=== PATIENT | male | born 1970 | race American Indian/Alaskan Native ===

== ENCOUNTER 2019-07-16 17:07 | Inpatient (IN) | payer OTHER ==
[2019-07-16] MEDS ORDERED: ALBUTEROL 2.5 MG/3 ML NEBU IH ONE (17:55)
[2019-07-16] MEDS: IPRATROPIUM 0.02% NEBU 2.5 ML IH ONE (18:10)
--- NOTE | 2019-07-16 18:15 | Emergency Department Report ---
HPI - General Chief Complaint: Dyspnea/Respdistress Time Seen by Provider: 07/16/19 17:54 - HPI HPI: 48-year-old male presents to the emergency department via EMS from home with complaint of a productive cough and shortness of breath. Overall the shortness of breath has been going on for the past 2 days but it became labored today. He received breathing treatments in route. He denies any chest pain except for when he is coughing. No lower extremity swelling and no recent travel or sick contacts at home. He has a past medical history of hypertension. Denies any tobacco or illicit drug use. No primary care physician. ED Past Medical Hx - Past Medical History Hx Hypertension: Yes - Surgical History Past Surgical History?: No - Social History Smoking Status: Never Smoker Substance Use Type: Alcohol - Medications Home Medications: Home Medications Medication Instructions Recorded Confirmed Last Taken Type Lisinopril/Hydrochlorothiazide 1 tab PO QDAY 07/16/19 07/16/19 Unknown History [Zestoretic 20-12.5 mg] amLODIPine [Norvasc] 10 mg PO DAILY 07/16/19 07/16/19 Unknown History ED Review of Systems ROS: Stated complaint: RESP DISTRESS Other details as noted in HPI Comment: All other systems reviewed and negative Constitutional: denies: chills, fever Eyes: denies: eye pain, vision change ENT: denies: ear pain, throat pain Respiratory: cough, shortness of breath Cardiovascular: denies: palpitations, edema Gastrointestinal: denies: abdominal pain, vomiting Genitourinary: denies: dysuria, discharge Musculoskeletal: denies: back pain, arthralgia Skin: denies: rash, lesions Neurological: denies: headache, weakness Physical Exam - Physical Exam Vital Signs: Vital Signs 07/16/19 17:25 Temperature 98.2 F Pulse Rate 126 H Respiratory 36 H Rate Blood Pressure 142/80 Physical Exam: GENERAL: The patient is well-developed well-nourished. HEENT: Normocephalic. Atraumatic. Patient has moist mucous membranes. EYES: Extraocular motions are intact. Pupils equal react to light bilaterally. NECK: Supple. Trachea is midline. CHEST/LUNGS: There is coarse breath sounds heard and rhonchi to the right side of the chest. There is tachypnea and accessory muscle use. There is respiratory distress noted. HEART/CARDIOVASCULAR: Regular. There is moderate tachycardia. There is no gallop rub or murmur. ABDOMEN: Abdomen is soft, nontender. Patient has normal bowel sounds. There is no abdominal distention. SKIN: Skin is warm and dry. NEURO: The patient is awake, alert, and oriented. The patient is cooperative. The patient has no focal neurologic deficits. MUSCULOSKELETAL: There is no tenderness or deformity. There is no evidence of acute injury. ED Course Vital Signs 07/16/19 17:25 Temperature 98.2 F Pulse Rate 126 H Respiratory 36 H Rate Blood Pressure 142/80 - Consultations Consultation #1: 07/17/19 00:49 The clinical marketing manager on-call, Dr. Valentin, was contacted regarding the patient's acute renal failure. He will see the patient as a consult. - ABG Interpretation Ph: [phone] PCO2: 35 PO2: 56 Bicarbonate: 26 Interpretation: respiratory alkalosis, other (hypoxemia) ED Medical Decision Making - Lab Data Result diagrams: 07/16/19 18:05 07/16/19 18:05 - EKG Data -: EKG Interpreted by Me EKG shows normal: sinus rhythm, axis (left axis deviation), intervals, QRS complexes, ST-T waves Rate: tachycardia (125 bpm) - EKG Data When compared to previous EKG there are: previous EKG unavailable Interpretation: other (Sinus tach, left axis deviation) - Radiology Data Radiology results: report reviewed, image reviewed interpreted by me: Chest x-ray shows a large right-sided opacity or opacities to the right lower, middle and upper lung. CT of the chest without contrast was read by radiology as an extensive right- sided pneumonia. Ventilation perfusion scan was read by radiology as intermediate probability for a pulmonary embolism. Bilateral renal ultrasound was a normal examination without any acute process found. - Medical Decision Making This patient presents to the emergency department with complaint of some shortness of breath and cough that has been going on for the past few days but worsened today. He appears in some respiratory distress with tachypnea, accessory muscle use, conversational dyspnea. Lung sounds are coarse with rhonchi on the right side. He presented on a nonrebreather. He was given nebulized treatment with albuterol and Atrovent. A chest x-ray was done that showed almost a complete right-sided white out. Patient's labs came back abnormal including a leukocytosis of 17,000, acute renal failure with a GFR of 18, hypokalemia with a potassium of 2.8, elevated BNP and troponin levels, and elevated AST level, and lactic acidosis of 6. ABG showed some mild respiratory alkalosis with hypoxemia. Blood cultures were sent and the patient was started on antibiotics. A CT scan of the chest without contrast was done that showed a large right-sided pneumonia. A ventilation perfusion scan was performed that came back intermediate for pulmonary embolism, most likely secondary to the right-sided pneumonia where they could not show perfusion ventilation. For this reason the patient will be started on heparin. I attempted to titrate the patient down to a nasal cannula but he once again began having some hypoxia. He was then placed on a Venturi mask and his oxygen went back to the high 90s. The patient will be admitted to the hospital for further evaluation and treatment and was accepted for admission by the hospitalist, Dr. Parker. - Differential Diagnosis sepsis, pneumonia, CHF, PE Critical Care Time: Yes Critical care time in (mins) excluding proc time.: 35 Critical care attestation.: If time is entered above; I have spent that time in minutes in the direct care of this critically ill patient, excluding procedure time. Critical care time was spent on this patient and doing his initial evaluation, multiple re- evaluations, ordering and interpretation of labs and imaging, discussion with the clinical marketing manager and hospitalist services. Critical Care Time: 35 minutes ED Disposition Clinical Impression: Hypokalemia, Lactic acidosis, Elevated troponin, Acute respiratory distress Sepsis Qualifiers: Sepsis type: sepsis due to unspecified organism Sepsis acute organ dysfunction status: unspecified Qualified Code(s): A41.9 - Sepsis, unspecified organism Pneumonia Qualifiers: Pneumonia type: due to unspecified organism Laterality: right Lung location: unspecified part of lung Qualified Code(s): J18.9 - Pneumonia, unspecified organism Renal failure Qualifiers: Renal failure chronicity: acute Acute renal failure type: unspecified Qualified Code(s): N17.9 - Acute kidney failure, unspecified Disposition: OP ADMIT IP TO THIS HOSP Is pt being admited?: Yes Condition: Serious Time of Disposition: 00:55
[2019-07-16 18:20] LABS: Hematocrit 39.7 % (35.5-45.6); Hemoglobin 13.2 gm/dl (11.8-15.2); Mean Corpuscular HGB Conc 33 % (32-34); Mean Corpuscular Volume 79 fl (84-94); Platelet Count 238 K/mm3 (140-440); Red Blood Count 5.03 M/mm3 (3.65-5.03); Red Cell Distribution Width 15.4 % (13.2-15.2)
[2019-07-16 18:30] LABS: INR 1.66 (0.87-1.13)
--- NOTE | 2019-07-16 18:34 | XRay Report ---
CHEST 1 VIEW INDICATION / CLINICAL INFORMATION: SOB. COMPARISON: None available. FINDINGS: SUPPORT DEVICES: None. HEART / MEDIASTINUM: No significant abnormality. LUNGS / PLEURA: Hazy opacity is seen throughout the right hemithorax, particularly laterally. The lef t lung is clear. No pneumothorax. ADDITIONAL FINDINGS: No significant additional findings. IMPRESSION: 1. Extensive opacity in the right lung. Signer Name: Franco Stephens MD Signed: 07/16/2019 6:29 PM Workstation Name: [id number]
[2019-07-16 18:56] LABS: Albumin 3.3 g/dL (3.9-5); Bilirubin,Direct 0.9 mg/dL (0-0.2)
[2019-07-16] MEDS ORDERED: POTASSIUM CHLORIDE ER 20 MEQ TAB PO ONE (18:59)
[2019-07-16 19:09] LABS: Chol/HDL Ratio 3.38 %
[2019-07-16 19:26] LABS: Hematocrit 38.9 % (35.5-45.6); Mean Corpuscular HGB Conc 34 % (32-34); Mean Corpuscular Volume 79 fl (84-94); Platelet Count 248 K/mm3 (140-440); Red Blood Count 4.92 M/mm3 (3.65-5.03); Red Cell Distribution Width 15.4 % (13.2-15.2)
[2019-07-16] MEDS ORDERED: cefTRIAXone/NS 1 GM/50 ML 1 GM/50 ML BAG IV ONE (20:01)
[2019-07-16] MEDS: POTASSIUM CHLORIDE 10 MEQ 10 MEQ/100 ML BAG IV SCH ×2 (20:02→22:33)
--- NOTE | 2019-07-16 21:10 | Cat Scan Report ---
CT chest wo con INDICATION: SOB. TECHNIQUE: All CT scans at this location are performed using the following dose modulation technique: Automated exposure control. CONTRAST: None. COMPARISON: Chest x-ray earlier the same day. FINDINGS: Dense consolidation involving a large portion of the right lung with only a small amount re maining aerated lung anteriorly. No significant pleural fluid. The left chest is clear. Negative for mediastinal mass or adenopathy. Imaging of the upper abdomen is unremarkable. IMPRESSION: Extensive right-sided pneumonia. Signer Name: Crow Grimm MD Signed: 07/16/2019 9:06 PM Workstation Name: [id number]
[2019-07-16 21:20] LABS: Band Neutrophils # (Manual) 3.3 K/mm3; Basophils % (Manual) 0 % (0.0-1.8); Eosinophils % (Manual) 0 % (0.0-4.3); Total Cells Counted 100
[2019-07-16 21:22] LABS: Large Platelets 1+; RBC Morphology Normal
[2019-07-16 21:23] LABS: Platelet Estimate Consistent w Auto
[2019-07-16 22:07] LABS: Bilirubin,Urine NEG (Negative); Color,Urine Amber (Yellow); Mucus,Urine FEW /HPF; Urobilinogen,Urine < 2.0 mg/dL (<2.0)
[2019-07-16 22:08] LABS: Blood,Urine LG (Negative)
--- NOTE | 2019-07-16 22:12 | Nuclear Medicine Report ---
NM lung scan perf/vent INDICATION / CLINICAL INFORMATION: SOB, elevated dimer. Tracer: Xenon-133 gas 24 mCi inhalation and technetium 99m MAA 4.9 mCi IV injection. COMPARISON: Chest CT earlier the same day. FINDINGS: Nuclear medicine ventilation and perfusion lung imaging were performed. There is normal ventilation a nd perfusion at the left chest. There is decreased ventilation greater than perfusion at the right ch est. A large corresponding infiltrate is seen on the right. IMPRESSION: The exam is criteria for intermediate probability for pulmonary embolus due to the large ventilation/perfusion defect with associated chest x-ray abnormality. No discrete suspicious perfusio n abnormality is seen. Signer Name: Crow Grimm MD Signed: 07/16/2019 10:08 PM Workstation Name: [id number]
[2019-07-16 22:13] LABS: Creatinine,Urine 327.2 mg/dL (0.1-20.0)
[2019-07-16] MEDS ORDERED: HEPARIN 10,000 UNITS/10 ML VIAL IV ONE (22:21)
--- NOTE | 2019-07-16 22:37 | Ultrasound Report ---
ULTRASOUND RENAL INDICATION: Acute renal failure.. COMPARISON: No relevant prior imaging study available. FINDINGS: RIGHT KIDNEY: Size: 12.1x 4.9 x 5.9 cm. Echogenicity: Normal. Cortical thickness: Normal. Hydronephrosis: None. Cyst or mass: None. Stones: None. LEFT KIDNEY: Size: 12.x 5.5x 7.0 cm. Echogenicity: Normal. Cortical thickness: Normal. Hydronephrosis: None. Cyst or mass: None. Stones: None. Urinary Bladder: No significant abnormality. Free Fluid: None. Additional Findings: None. IMPRESSION 1. No acute sonographic abnormality of the kidneys. Signer Name: Heri Lora MD Signed: 07/16/2019 10:33 PM Workstation Name: [id number]
[2019-07-16] MEDS: HEPARIN/ 0.45% NACL DRIP 25,000 UNIT/500 ML BAG IV SCH (22:49)
[2019-07-16] MEDS ORDERED: SODIUM CHLORIDE 0.9% 500 ML 500 ML IV ONE (22:56)
[2019-07-16] MEDS ORDERED: SODIUM CHLORIDE 0.9% 1000 ML 1,000 ML IV ONE ×2 (22:56→23:10)
[2019-07-16] MEDS ORDERED: VANCOMYCIN/NS 1 GM/250 ML 1 GM/250 ML BAG IV ONE (23:07)
[2019-07-16] MEDS ORDERED: ALBUTEROL 2.5 MG/3 ML NEBU IH PRN (23:07)
[2019-07-16] MEDS ORDERED: ACETAMINOPHEN 325 MG TAB PO PRN (23:07)
[2019-07-16] MEDS ORDERED: ONDANSETRON 4 MG/2 ML INJ IV PRN (23:07)
[2019-07-16] MEDS ORDERED: SODIUM CHLORIDE 0.9% 1000 ML 1,000 ML IV SCH (23:15)
[2019-07-16] MEDS ORDERED: VANCOMYCIN 2,000 MG in SODIUM CHLORIDE 0.9% 500 ML 500 ML IV ONE (23:30)
--- NOTE | 2019-07-16 23:37 | History and Physical Report ---
<NIGHAT FIELDS - Last Filed: 07/16/19 23:55> History of Present Illness Date of examination: 07/16/19 Date of admission: 07/16/19 23:07 Chief complaint: SOB History of present illness: 48-year-old -[place]ian male with history of hypertension who presents to [facility] ED via EMS with complaints of difficulty breathing and shortness of breath for the past 1-2 days. Patient sister is present at bedside and has assisted with providing history. According to patient's sister patient developed cough approximately 1-2 days ago. While patient was sleeping sister states that she noticed his breathing was more labored than usual, and he was sleeping for longer time periods. Earlier today patient's sob worsened and he started experiencing difficulty breathing. EMS was called and patient was transferred to our facility for further evaluation and management. Patient sister admits that patient had a [facility] which resolved within 2-3 days without any medical interventions. Denies recent hospitalizations. Sister does recall patient having a non productive cough earlier this week but thought it was the common cold. At the time of my examination patient is sitting up in bed on nasal cannula with respirations varying from mid 30's- low 40's. Patient breathing remains labored. Heart rate is elevated in the 130s. Patient is able to talk and communicates but quickly becomes short of breath. Will place on BiPAP and admitted to the IMCU. Past History Past Medical History: hypertension Past Surgical History: No surgical history Social history: lives with family (sister), other (social alcohol use) Family history: no significant family history Medications and Allergies Allergies Allergy/AdvReac Type Severity Reaction Status Date / Time No Known Allergies Allergy Unverified 07/16/19 17:32 Home Medications Medication Instructions Recorded Confirmed Last Taken Type Lisinopril/Hydrochlorothiazide 1 tab PO QDAY 07/16/19 07/16/19 Unknown History [Zestoretic 20-12.5 mg] amLODIPine [Norvasc] 10 mg PO DAILY 07/16/19 07/16/19 Unknown History Active Meds: Active Medications Acetaminophen (Tylenol) 650 mg PO Q4H PRN PRN Reason: Pain MILD(1-3)/Fever >100.5/DE LA O Albuterol (Proventil) 2.5 mg IH Q3HRT PRN PRN Reason: Shortness Of Breath Amlodipine Besylate (Amlodipine) 10 mg PO DAILY [facility] Docusate Sodium (Colace) 100 mg PO BID [facility] Heparin Sodium/Sodium Chloride (Heparin/ 0.45% Nacl-25,000 Unit/500 Ml) 25,000 unit in 500 mls @ 30 mls/hr IV TITR [facility]; Protocol Last Admin: 07/16/19 22:49 Dose: 1,500 units/hr, 30 mls/hr Documented by: Ceftriaxone Sodium (Rocephin/Ns 1 Gm/50 Ml) 1 gm in 50 mls @ 100 mls/hr IV Q12HR [facility]; Protocol Sodium Chloride (Nacl 0.9% 500 Ml) 500 mls @ 75 mls/hr IV ONCE ONE Stop: 07/17/19 05:35 Last Admin: 07/16/19 23:09 Dose: 999 mls/hr Documented by: Azithromycin 500 mg/ Sodium (Chloride) 250 mls @ 250 mls/hr IV Q24HR@2200 [facility]; Protocol Sodium Chloride (Nacl 0.9% 1000 Ml) 1,000 mls @ 75 mls/hr IV BOLUS ONE Stop: 07/17/19 12:29 Vancomycin HCl 2,000 mg/ (Sodium Chloride) 540 mls @ 250 mls/hr IV ONCE ONE Stop: 07/17/19 01:39 Ondansetron HCl (Zofran) 4 mg IV Q6H PRN PRN Reason: Nausea And Vomiting Sodium Chloride (Sodium Chloride Flush Syringe 10 Ml) 10 ml IV BID [facility] Sodium Chloride (Sodium Chloride Flush Syringe 10 Ml) 10 ml IV PRN PRN PRN Reason: LINE FLUSH Review of Systems All systems: negative Constitutional: fever, weakness Cardiovascular: shortness of breath, dyspnea on exertion Respiratory: cough, shortness of breath, dyspnea on exertion Exam - Physical Exam Narrative exam: Physical exam General appearance: Present: mild distress, alert and oriented 3, obese, adult male - EENT Eyes: Present: PERRL, EOM intact ENT: hearing intact, normal dentition - Neck Neck: Present: supple, normal ROM - Respiratory Respiratory effort: labored, tachypneic, on supplemental oxygen Respiratory: Scattered crackles to right, coarse upper lobes - Cardiovascular Heart rate: 123 (bpm) Rhythm: Sinus tachycardia Heart Sounds: Present: S1 & S2. Absent: rub, click - Extremities Extremities: no ischemia, pulses intact, - Peripheral Assessment Peripheral Pulses: within normal limits - Abdominal General gastrointestinal: obese, soft, non-tender, normal bowel sounds - Integumentary Integumentary: Present: warm, dry - Musculoskeletal Musculoskeletal: Able to move all extremities -Neurological Neurological: CN II-XII intact - Psychiatric Psychiatric: cooperative - Constitutional Vitals: Temp Pulse Resp BP Pulse Ox 99.7 F H 123 H 33 H 165/70 91 07/16/19 22:06 07/16/19 22:06 07/16/19 22:06 07/16/19 22:06 07/16/19 22:06 Results - Labs CBC & Chem 7: 07/16/19 18:05 07/16/19 18:05 Labs: Laboratory Last Values WBC 17.5 K/mm3 (4.5-11.0) H 07/16/19 18:05 RBC 5.03 M/mm3 (3.65-5.03) 07/16/19 18:05 Hgb 13.2 gm/dl (11.8-15.2) 07/16/19 18:05 Hct 39.7 % (35.5-45.6) 07/16/19 18:05 MCV 79 fl (84-94) L 07/16/19 18:05 MCH 26 pg (28-32) L 07/16/19 18:05 MCHC 33 % (32-34) 07/16/19 18:05 RDW 15.4 % (13.2-15.2) H 07/16/19 18:05 Plt Count 238 K/mm3 (140-440) 07/16/19 18:05 Add Manual Diff Complete 07/16/19 18:00 Total Counted 100 07/16/19 18:00 Seg Neutrophils % Exchange Floor Manager 07/16/19 18:00 Seg Neuts % (Manual) 70.0 % (40.0-70.0) 07/16/19 18:00 Band Neutrophils % 19.0 % 07/16/19 18:00 Lymphocytes % (Manual) 9.0 % (13.4-35.0) L 07/16/19 18:00 Reactive Lymphs % (Man) 0 % 07/16/19 18:00 Monocytes % (Manual) 2.0 % (0.0-7.3) 07/16/19 18:00 Eosinophils % (Manual) 0 % (0.0-4.3) 07/16/19 18:00 Basophils % (Manual) 0 % (0.0-1.8) 07/16/19 18:00 Metamyelocytes % 0 % 07/16/19 18:00 Myelocytes % 0 % 07/16/19 18:00 Promyelocytes % 0 % 07/16/19 18:00 Blast Cells % 0 % 07/16/19 18:00 Nucleated RBC % Not Reportable 07/16/19 18:00 Seg Neutrophils # Man 12.0 K/mm3 (1.8-7.7) H 07/16/19 18:00 Band Neutrophils # 3.3 K/mm3 07/16/19 18:00 Lymphocytes # (Manual) 1.5 K/mm3 (1.2-5.4) 07/16/19 18:00 Abs React Lymphs (Man) 0.0 K/mm3 07/16/19 18:00 Monocytes # (Manual) 0.3 K/mm3 (0.0-0.8) 07/16/19 18:00 Eosinophils # (Manual) 0.0 K/mm3 (0.0-0.4) 07/16/19 18:00 Basophils # (Manual) 0.0 K/mm3 (0.0-0.1) 07/16/19 18:00 Metamyelocytes # 0.0 K/mm3 07/16/19 18:00 Myelocytes # 0.0 K/mm3 07/16/19 18:00 Promyelocytes # 0.0 K/mm3 07/16/19 18:00 Blast Cells # 0.0 K/mm3 07/16/19 18:00 WBC Morphology Not Reportable 07/16/19 18:00 Hypersegmented Neuts Not Reportable 07/16/19 18:00 Hyposegmented Neuts Not Reportable 07/16/19 18:00 Hypogranular Neuts Not Reportable 07/16/19 18:00 Smudge Cells Not Reportable 07/16/19 18:00 Toxic Granulation Not Reportable 07/16/19 18:00 Toxic Vacuolation Not Reportable 07/16/19 18:00 Dohle Bodies Not Reportable 07/16/19 18:00 Pelger-Huet Anomaly Not Reportable 07/16/19 18:00 Tha Rods Not Reportable 07/16/19 18:00 Platelet Estimate Consistent w auto 07/16/19 18:00 Clumped Platelets Not Reportable 07/16/19 18:00 Plt Clumps, EDTA Not Reportable 07/16/19 18:00 Large Platelets 1+ 07/16/19 18:00 Giant Platelets Not Reportable 07/16/19 18:00 Platelet Satelliting Not Reportable 07/16/19 18:00 Plt Morphology Comment Not Reportable 07/16/19 18:00 RBC Morphology Normal 07/16/19 18:00 Dimorphic RBCs Not Reportable 07/16/19 18:00 Polychromasia Not Reportable 07/16/19 18:00 Hypochromasia Not Reportable 07/16/19 18:00 Poikilocytosis Not Reportable 07/16/19 18:00 Anisocytosis Not Reportable 07/16/19 18:00 Microcytosis Not Reportable 07/16/19 18:00 Macrocytosis Not Reportable 07/16/19 18:00 Spherocytes Not Reportable 07/16/19 18:00 Pappenheimer Bodies Not Reportable 07/16/19 18:00 Sickle Cells Not Reportable 07/16/19 18:00 Target Cells Not Reportable 07/16/19 18:00 Tear Drop Cells Not Reportable 07/16/19 18:00 Ovalocytes Not Reportable 07/16/19 18:00 Helmet Cells Not Reportable 07/16/19 18:00 [place] Bodies Not Reportable 07/16/19 18:00 [place] Rings Not Reportable 07/16/19 18:00 Hector Cells Not Reportable 07/16/19 18:00 Bite Cells Not Reportable 07/16/19 18:00 Crenated Cell Not Reportable 07/16/19 18:00 Elliptocytes Not Reportable 07/16/19 18:00 Acanthocytes (Spur) Not Reportable 07/16/19 18:00 Rouleaux Not Reportable 07/16/19 18:00 Hemoglobin C Crystals Not Reportable 07/16/19 18:00 Schistocytes Not Reportable 07/16/19 18:00 Malaria parasites Not Reportable 07/16/19 18:00 James Bodies Not Reportable 07/16/19 18:00 Hem Pathologist Commnt No 07/16/19 18:00 PT 19.9 Sec. (12.2-14.9) H 07/16/19 18:05 INR 1.66 (0.87-1.13) H 07/16/19 18:05 D-Dimer 630.53 ng/mlDDU (0-234) H 07/16/19 18:05 POC ABG pH 7.498 (7.35-7.45) H 07/16/19 23:25 POC ABG pCO2 31.9 (35-45) L 07/16/19 23:25 POC ABG pO2 56 (80-105) L 07/16/19 18:53 POC ABG HCO3 24.8 (22-26 mml/L) 07/16/19 23:25 POC ABG Total CO2 26 (23-27mmol/L) 07/16/19 23:25 POC ABG O2 Sat 87 07/16/19 23:25 POC ABG Base Excess 2 ((-2) - (+3)mmol/L) 07/16/19 23:25 FiO2 21 % 07/16/19 23:25 Sodium 139 mmol/L (137-145) 07/16/19 18:05 Potassium 2.8 mmol/L (3.6-5.0) L* 07/16/19 18:05 Chloride 88.8 mmol/L (98-107) L 07/16/19 18:05 Carbon Dioxide 23 mmol/L (22-30) 07/16/19 18:05 Anion Gap 30 mmol/L 07/16/19 18:05 BUN 44 mg/dL (9-20) H 07/16/19 18:05 Creatinine 4.2 mg/dL (0.8-1.5) H 07/16/19 18:05 Estimated GFR 18 ml/min 07/16/19 18:05 BUN/Creatinine Ratio 10 % 07/16/19 18:05 Glucose 165 mg/dL (75-100) H 07/16/19 18:05 Calcium 8.0 mg/dL (8.4-10.2) L 07/16/19 18:05 Total Bilirubin 1.80 mg/dL (0.1-1.2) H 07/16/19 17:55 Direct Bilirubin 0.9 mg/dL (0-0.2) H 07/16/19 17:55 Indirect Bilirubin 0.9 mg/dL 07/16/19 17:55 AST 59 units/L (5-40) H 07/16/19 17:55 ALT 26 units/L (7-56) 07/16/19 17:55 Alkaline Phosphatase 68 units/L (35-129) 07/16/19 17:55 Troponin T 0.039 ng/mL (0.00-0.029) H 07/16/19 17:55 NT-Pro-B Natriuret Pep 92408 pg/mL (0-450) H 07/16/19 17:55 Total Protein 7.9 g/dL (6.3-8.2) 07/16/19 17:55 Albumin 3.3 g/dL (3.9-5) L 07/16/19 17:55 Albumin/Globulin Ratio 0.7 % 07/16/19 17:55 Triglycerides 121 mg/dL (2-149) 07/16/19 17:55 Cholesterol 132 mg/dL (50-199) 07/16/19 17:55 LDL Cholesterol Direct 66 mg/dL (50-130) 07/16/19 17:55 HDL Cholesterol 39 mg/dL (40-59) L 07/16/19 17:55 Cholesterol/HDL Ratio 3.38 % 07/16/19 17:55 Urine Color Ame (Yellow) 07/16/19 21:50 Urine Turbidity Cloudy (Clear) 07/16/19 21:50 Urine pH 5.0 (5.0-7.0) 07/16/19 21:50 Ur Specific [place] 1.017 (1.003-1.030) 07/16/19 21:50 Urine Protein 30 mg/dl mg/dL (Negative) 07/16/19 21:50 Urine Glucose (UA) Neg mg/dL (Negative) 07/16/19 21:50 Urine Ketones Neg mg/dL (Negative) 07/16/19 21:50 Urine Blood Lg (Negative) 07/16/19 21:50 Urine Nitrite Neg (Negative) 07/16/19 21:50 Urine Bilirubin Neg (Negative) 07/16/19 21:50 Urine Urobilinogen < 2.0 mg/dL (<2.0) 07/16/19 21:50 Ur Leukocyte Esterase Neg (Negative) 07/16/19 21:50 Urine WBC (Auto) 8.0 /HPF (0.0-6.0) H 07/16/19 21:50 Urine RBC (Auto) 3.0 /HPF (0.0-6.0) 07/16/19 21:50 Urine Mucus Few /HPF 07/16/19 21:50 Urine Eosinophils None seen (None Seen) 07/16/19 21:50 Urine Creatinine 327.2 mg/dL (0.1-20.0) H 07/16/19 21:50 Urine Sodium 28 mmol/L 07/16/19 21:50 - Imaging and Cardiology Imaging and Cardiology: CXR: Findings: Lung/pleura: Hazy opacities seen throughout the right hemithorax, part particularly laterally. Left lung is clear and no pneumothorax. Impressions: 1. Extensive opacity of right lung CT Chest: Findings: Dense consolidation involving a large portion of the right lung with only a small amount remaining aerated lung anteriorly. No significant pleural fluid. The left chest is clear. Negative for mediastinal mass or adenopathy. Imaging of the upper abdomen is unremarkable. Impression: 1. Eextensive right-sided pneumonia V/Q Scan: Findings: Nuclear medicine ventilation/perfusion lung imaging were performed. There was a normal ventilation and perfusion at the left chest. There is decreased ventilation greater than perfusion at the right chest. A large corresponding infiltrate is seen on the right. Impression: The exam is criteria for intermediate probability for pulmonary embolism due to the large ventilation perfusion defect with associated chest x- ray abnormality. No discrete suspicious perfusion abnormality is seen. Renal US: Impression no acute sonographic abnormality of the kidneys. Assessment and Plan Assessment and plan: 48-year-old -[place] male with history of hypertension who presents to [facility] ED via EMS with complaints of difficulty breathing and shortness of breath for the past 1-2 days. Sepsis -Secondary to pneumonia -Leukocytosis 17.5 -Tachycardia 120's-130's -T-max 100.1 -Lactic acid 6.40 -Start IVF and IV abx Pneumonia -CXR and CT Chest shows Extensive opacity of right lung -Cultures pending -Start on IV Abx Acute hypoxic respiratory failure -No Baseline home oxygen requirements -Currently on supplemental -Initial ABG done on 100% FiO2: 7.49/35/56/26 -Repeat ABG done on RA 7.49/30 140 8/24.8 -Monitor saturations -Continue supplemental oxygen wean as tolerated R/O Pulmonary Embolism -D-dimer elevated 630.53 -VQ scan shows intermediate probability for PE -Initiate heparin protocol -Start heparin drip -Pulmonary consulted Acute kidney injury -Cr on admission 4.2 -??CKD with GFR 18 -Gentle hydration with IVF -Avoid nephrotoxic agents -Renal dose all meds -Nephrology consulted Hypokalemia -Potassium on admission 2.8 -Received potassium replacement -Continue to monitor replete prn Obesity -BMI 38.7kg -Diet and lifestyle modifications -May benefit from OP weight mgmt program DVT PPX -On Heparin gtt -SCD's Advance Directives: No VTE prophylaxis?: Chemical, Mechanical Plan of care discussed with patient/family: Yes <CARINA CALABRESE - Last Filed: 07/17/19 06:38> History of Present Illness Date of admission: 07/16/19 23:07 Medications and Allergies Active Meds: Active Medications Acetaminophen (Tylenol) 650 mg PO Q4H PRN PRN Reason: Pain MILD(1-3)/Fever >100.5/DE LA O Albuterol (Proventil) 2.5 mg IH Q3HRT PRN PRN Reason: Shortness Of Breath Amlodipine Besylate (Amlodipine) 10 mg PO DAILY [facility] Docusate Sodium (Colace) 100 mg PO BID [facility] Heparin Sodium/Sodium Chloride (Heparin/ 0.45% Nacl-25,000 Unit/500 Ml) 25,000 unit in 500 mls @ 30 mls/hr IV TITR [facility]; Protocol Last Admin: 07/16/19 22:49 Dose: 1,500 units/hr, 30 mls/hr Documented by: Ceftriaxone Sodium (Rocephin/Ns 1 Gm/50 Ml) 1 gm in 50 mls @ 100 mls/hr IV Q12HR [facility]; Protocol Sodium Chloride (Nacl 0.9% 500 Ml) 500 mls @ 75 mls/hr IV ONCE ONE Stop: 07/17/19 05:35 Last Admin: 07/16/19 23:09 Dose: 999 mls/hr Documented by: Azithromycin 500 mg/ Sodium (Chloride) 250 mls @ 250 mls/hr IV Q24HR@2200 [facility]; Protocol Last Admin: 07/16/19 23:55 Dose: 250 mls/hr Documented by: Sodium Chloride (Nacl 0.9% 1000 Ml) 1,000 mls @ 75 mls/hr IV BOLUS ONE Stop: 07/17/19 12:29 Last Admin: 07/16/19 23:46 Dose: 75 mls/hr Documented by: Vancomycin HCl 2,000 mg/ (Sodium Chloride) 540 mls @ 250 mls/hr IV ONCE ONE Stop: 07/17/19 01:39 Ondansetron HCl (Zofran) 4 mg IV Q6H PRN PRN Reason: Nausea And Vomiting Sodium Chloride (Sodium Chloride Flush Syringe 10 Ml) 10 ml IV BID [facility] Sodium Chloride (Sodium Chloride Flush Syringe 10 Ml) 10 ml IV PRN PRN PRN Reason: LINE FLUSH Exam - Constitutional Vitals: Temp Pulse Resp BP Pulse Ox 99.5 F 125 H 28 H 145/90 97 07/16/19 23:47 07/16/19 23:47 07/16/19 23:47 07/16/19 23:47 07/16/19 23:47 Results - Labs CBC & Chem 7: 07/17/19 03:00 07/17/19 03:00 Labs: Laboratory Last Values WBC 17.5 K/mm3 (4.5-11.0) H 07/16/19 18:05 RBC 5.03 M/mm3 (3.65-5.03) 07/16/19 18:05 Hgb 13.2 gm/dl (11.8-15.2) 07/16/19 18:05 Hct 39.7 % (35.5-45.6) 07/16/19 18:05 MCV 79 fl (84-94) L 07/16/19 18:05 MCH 26 pg (28-32) L 07/16/19 18:05 MCHC 33 % (32-34) 07/16/19 18:05 RDW 15.4 % (13.2-15.2) H 07/16/19 18:05 Plt Count 238 K/mm3 (140-440) 07/16/19 18:05 Add Manual Diff Complete 07/16/19 18:00 Total Counted 100 07/16/19 18:00 Seg Neutrophils % Exchange Floor Manager 07/16/19 18:00 Seg Neuts % (Manual) 70.0 % (40.0-70.0) 07/16/19 18:00 Band Neutrophils % 19.0 % 07/16/19 18:00 Lymphocytes % (Manual) 9.0 % (13.4-35.0) L 07/16/19 18:00 Reactive Lymphs % (Man) 0 % 07/16/19 18:00 Monocytes % (Manual) 2.0 % (0.0-7.3) 07/16/19 18:00 Eosinophils % (Manual) 0 % (0.0-4.3) 07/16/19 18:00 Basophils % (Manual) 0 % (0.0-1.8) 07/16/19 18:00 Metamyelocytes % 0 % 07/16/19 18:00 Myelocytes % 0 % 07/16/19 18:00 Promyelocytes % 0 % 07/16/19 18:00 Blast Cells % 0 % 07/16/19 18:00 Nucleated RBC % Not Reportable 07/16/19 18:00 Seg Neutrophils # Man 12.0 K/mm3 (1.8-7.7) H 07/16/19 18:00 Band Neutrophils # 3.3 K/mm3 07/16/19 18:00 Lymphocytes # (Manual) 1.5 K/mm3 (1.2-5.4) 07/16/19 18:00 Abs React Lymphs (Man) 0.0 K/mm3 07/16/19 18:00 Monocytes # (Manual) 0.3 K/mm3 (0.0-0.8) 07/16/19 18:00 Eosinophils # (Manual) 0.0 K/mm3 (0.0-0.4) 07/16/19 18:00 Basophils # (Manual) 0.0 K/mm3 (0.0-0.1) 07/16/19 18:00 Metamyelocytes # 0.0 K/mm3 07/16/19 18:00 Myelocytes # 0.0 K/mm3 07/16/19 18:00 Promyelocytes # 0.0 K/mm3 07/16/19 18:00 Blast Cells # 0.0 K/mm3 07/16/19 18:00 WBC Morphology Not Reportable 07/16/19 18:00 Hypersegmented Neuts Not Reportable 07/16/19 18:00 Hyposegmented Neuts Not Reportable 07/16/19 18:00 Hypogranular Neuts Not Reportable 07/16/19 18:00 Smudge Cells Not Reportable 07/16/19 18:00 Toxic Granulation Not Reportable 07/16/19 18:00 Toxic Vacuolation Not Reportable 07/16/19 18:00 Dohle Bodies Not Reportable 07/16/19 18:00 Pelger-Huet Anomaly Not Reportable 07/16/19 18:00 Tha Rods Not Reportable 07/16/19 18:00 Platelet Estimate Consistent w auto 07/16/19 18:00 Clumped Platelets Not Reportable 07/16/19 18:00 Plt Clumps, EDTA Not Reportable 07/16/19 18:00 Large Platelets 1+ 07/16/19 18:00 Giant Platelets Not Reportable 07/16/19 18:00 Platelet Satelliting Not Reportable 07/16/19 18:00 Plt Morphology Comment Not Reportable 07/16/19 18:00 RBC Morphology Normal 07/16/19 18:00 Dimorphic RBCs Not Reportable 07/16/19 18:00 Polychromasia Not Reportable 07/16/19 18:00 Hypochromasia Not Reportable 07/16/19 18:00 Poikilocytosis Not Reportable 07/16/19 18:00 Anisocytosis Not Reportable 07/16/19 18:00 Microcytosis Not Reportable 07/16/19 18:00 Macrocytosis Not Reportable 07/16/19 18:00 Spherocytes Not Reportable 07/16/19 18:00 Pappenheimer Bodies Not Reportable 07/16/19 18:00 Sickle Cells Not Reportable 07/16/19 18:00 Target Cells Not Reportable 07/16/19 18:00 Tear Drop Cells Not Reportable 07/16/19 18:00 Ovalocytes Not Reportable 07/16/19 18:00 Helmet Cells Not Reportable 07/16/19 18:00 [place] Bodies Not Reportable 07/16/19 18:00 [place] Rings Not Reportable 07/16/19 18:00 Walker Cells Not Reportable 07/16/19 18:00 Bite Cells Not Reportable 07/16/19 18:00 Crenated Cell Not Reportable 07/16/19 18:00 Elliptocytes Not Reportable 07/16/19 18:00 Acanthocytes (Spur) Not Reportable 07/16/19 18:00 Rouleaux Not Reportable 07/16/19 18:00 Hemoglobin C Crystals Not Reportable 07/16/19 18:00 Schistocytes Not Reportable 07/16/19 18:00 Malaria parasites Not Reportable 07/16/19 18:00 James Bodies Not Reportable 07/16/19 18:00 Hem Pathologist Commnt No 07/16/19 18:00 PT 19.9 Sec. (12.2-14.9) H 07/16/19 18:05 INR 1.66 (0.87-1.13) H 07/16/19 18:05 D-Dimer 630.53 ng/mlDDU (0-234) H 07/16/19 18:05 POC ABG pH 7.498 (7.35-7.45) H 07/16/19 23:25 POC ABG pCO2 31.9 (35-45) L 07/16/19 23:25 POC ABG pO2 56 (80-105) L 07/16/19 18:53 POC ABG HCO3 24.8 (22-26 mml/L) 07/16/19 23:25 POC ABG Total CO2 26 (23-27mmol/L) 07/16/19 23:25 POC ABG O2 Sat 87 07/16/19 23:25 POC ABG Base Excess 2 ((-2) - (+3)mmol/L) 07/16/19 23:25 FiO2 21 % 07/16/19 23:25 Sodium 139 mmol/L (137-145) 07/16/19 18:05 Potassium 2.8 mmol/L (3.6-5.0) L* 07/16/19 18:05 Chloride 88.8 mmol/L (98-107) L 07/16/19 18:05 Carbon Dioxide 23 mmol/L (22-30) 07/16/19 18:05 Anion Gap 30 mmol/L 07/16/19 18:05 BUN 44 mg/dL (9-20) H 07/16/19 18:05 Creatinine 4.2 mg/dL (0.8-1.5) H 07/16/19 18:05 Estimated GFR 18 ml/min 07/16/19 18:05 BUN/Creatinine Ratio 10 % 07/16/19 18:05 Glucose 165 mg/dL (75-100) H 07/16/19 18:05 Lactic Acid 6.40 mmol/L (0.7-2.0) H* 07/16/19 21:52 Calcium 8.0 mg/dL (8.4-10.2) L 07/16/19 18:05 Total Bilirubin 1.80 mg/dL (0.1-1.2) H 07/16/19 17:55 Direct Bilirubin 0.9 mg/dL (0-0.2) H 07/16/19 17:55 Indirect Bilirubin 0.9 mg/dL 07/16/19 17:55 AST 59 units/L (5-40) H 07/16/19 17:55 ALT 26 units/L (7-56) 07/16/19 17:55 Alkaline Phosphatase 68 units/L (35-129) 07/16/19 17:55 Troponin T 0.039 ng/mL (0.00-0.029) H 07/16/19 17:55 NT-Pro-B Natriuret Pep 09568 pg/mL (0-450) H 07/16/19 17:55 Total Protein 7.9 g/dL (6.3-8.2) 07/16/19 17:55 Albumin 3.3 g/dL (3.9-5) L 07/16/19 17:55 Albumin/Globulin Ratio 0.7 % 07/16/19 17:55 Triglycerides 121 mg/dL (2-149) 07/16/19 17:55 Cholesterol 132 mg/dL (50-199) 07/16/19 17:55 LDL Cholesterol Direct 66 mg/dL (50-130) 07/16/19 17:55 HDL Cholesterol 39 mg/dL (40-59) L 07/16/19 17:55 Cholesterol/HDL Ratio 3.38 % 07/16/19 17:55 Urine Color Ame (Yellow) 07/16/19 21:50 Urine Turbidity Cloudy (Clear) 07/16/19 21:50 Urine pH 5.0 (5.0-7.0) 07/16/19 21:50 Ur Specific [place] 1.017 (1.003-1.030) 07/16/19 21:50 Urine Protein 30 mg/dl mg/dL (Negative) 07/16/19 21:50 Urine Glucose (UA) Neg mg/dL (Negative) 07/16/19 21:50 Urine Ketones Neg mg/dL (Negative) 07/16/19 21:50 Urine Blood Lg (Negative) 07/16/19 21:50 Urine Nitrite Neg (Negative) 07/16/19 21:50 Urine Bilirubin Neg (Negative) 07/16/19 21:50 Urine Urobilinogen < 2.0 mg/dL (<2.0) 07/16/19 21:50 Ur Leukocyte Esterase Neg (Negative) 07/16/19 21:50 Urine WBC (Auto) 8.0 /HPF (0.0-6.0) H 07/16/19 21:50 Urine RBC (Auto) 3.0 /HPF (0.0-6.0) 07/16/19 21:50 Urine Mucus Few /HPF 07/16/19 21:50 Urine Eosinophils None seen (None Seen) 07/16/19 21:50 Urine Creatinine 327.2 mg/dL (0.1-20.0) H 07/16/19 21:50 Urine Sodium 28 mmol/L 07/16/19 21:50 Assessment and Plan Assessment and plan: 48-year-old man with a history of hypertension comes emergency room with complaints of shortness of breath, nonproductive cough comes emergency room with complaints of shortness of breath that started yesterday. He was found to have sepsis secondary to extensive right-sided pneumonia, acute renal failure, and intermediate probability for pulmonary embolism. He stated 3 months ago all his lab work was normal. Agree with IV Rocephin, azithromycin, Vanco. Patient with hypoxic respiratory failure, start BiPAP now, sdd steroids, agree with plans as outlined above
[2019-07-16] MEDS: AZITHROMYCIN 500 MG in SODIUM CHLORIDE 0.9% 250ML 250 ML IV SCH (23:55)
[2019-07-17 03:19] LABS: Hematocrit 36.3 % (35.5-45.6); Hemoglobin 11.8 gm/dl (11.8-15.2); Mean Corpuscular HGB Conc 33 % (32-34); Mean Corpuscular Volume 79 fl (84-94); Platelet Count 227 K/mm3 (140-440); Red Blood Count 4.59 M/mm3 (3.65-5.03); Red Cell Distribution Width 15.3 % (13.2-15.2)
[2019-07-17 03:23] LABS: Calcium 7.2 mg/dL (8.4-10.2)
[2019-07-17 03:25] LABS: Basophils % (Manual) 0 % (0.0-1.8); Creatine Kinase MB 6.5 ng/mL (0.0-4.0); Eosinophils % (Manual) 0 % (0.0-4.3); Total Cells Counted 100
[2019-07-17 03:26] LABS: Anisocytosis 1+; Hypochromasia 1+; Platelet Estimate Consistent w Auto
[2019-07-17] MEDS: POTASSIUM CHLORIDE 10 MEQ 10 MEQ/100 ML BAG IV SCH ×4 (04:49→10:38)
[2019-07-17] MEDS ORDERED: methylPREDNISolone Sod Succinate 125 MG/2 ML INJ IV SCH (06:36)
[2019-07-17] MEDS ORDERED: methylPREDNISolone Sod Succinate 125 MG/2 ML INJ IV ONE (06:37)
[2019-07-17] MEDS: amLODIPine 10 MG TAB PO SCH (09:25)
[2019-07-17] MEDS: DOCUSATE SODIUM 100 MG CAP PO SCH ×2 (09:25→22:50)
[2019-07-17] MEDS ORDERED: AZITHROMYCIN 500 MG in SODIUM CHLORIDE 0.9% 250ML 250 ML IV SCH (10:00)
[2019-07-17] MEDS ORDERED: cefTRIAXone/NS 1 GM/50 ML 1 GM/50 ML BAG IV SCH (10:00)
--- NOTE | 2019-07-17 10:19 | Progress Note ---
Assessment and Plan Assessment and plan: Patient is 48-year-old -Prydeinig man with a history of hypertension who presents to [facility] ED via EMS with severe SOB and cough. He was placed on Bipap because pO2 was only 56 on 1005 oxygen and admitted to IMCU. * pCXR Impressions: 1. Extensive opacity of right lung * CT Chest without contrast: Impression: 1. Extensive right-sided pneumonia * V/Q Scan Impression: The exam is criteria for intermediate probability for pulmonary embolism due to the large ventilation perfusion defect with associated chest x-ray abnormality. No discrete suspicious perfusion abnormality is seen. * Renal US Impression no acute sonographic abnormality of the kidneys. Sepsis -Secondary to pneumonia -Leukocytosis 17.5, went up due to iv steroids, will stop steroids -Tachycardia 120's-130's -T-max 100.1 -Lactic acid 6.40 -treated with IVF and IV abx Pneumonia right sided suspected Aspiration (the report doesn't mention specific location in the right lung and there is no camera icon in [employer] EMR to actually see the film) -CXR and CT Chest shows Extensive opacity of right lung -Cultures pending -Start on IV Abx Acute hypoxic respiratory failure -No Baseline home oxygen requirements -Currently on supplemental -Initial ABG done on 100% FiO2: 7.49/35/56/26 -Repeat ABG done on RA 7.49/30 8/24.8 -Monitor saturations -Continue supplemental oxygen wean as tolerated R/O Pulmonary Embolism -D-dimer elevated 630.53 -VQ scan shows intermediate probability for PE -Initiate heparin protocol -Start heparin drip -Pulmonary consulted Acute kidney injury, vasomotor nephropathy -Cr on admission 4.2 -??CKD with GFR 18 -Gentle hydration with IVF -Avoid nephrotoxic agents -Renal dose all meds -Nephrology consulted Hypokalemia -Potassium on admission 2.8 -Received potassium replacement -Continue to monitor and replete prn Obesity -BMI 38.7kg -Diet and lifestyle modifications -May benefit from OP weight mgmt program DVT PPX -On Heparin gtt -SCD's History Interval history: Patient was seen and examined. Follow-up on current diagnosis Right sided PNA. Overnight uneventful. Patient denies any chest pain, nausea/vomiting or severe headaches. Imaging, nursing note, chart, labs and old chart reviewed. Discussed with patient. Sister Reta at bedside. Hospitalist Physical - Physical exam Narrative exam: Gen: ill appearing, NAD, Awake, Alert, Orientated HEENT: NCAT, EOMI, PERRL, OP Clear Neck: supple, no adenopathy, no thyromegaly, no JVD CVS/Heart: regular tachycardia, normal S1S2, pulses present bilaterally Chest/Lungs: tachypneic, coarse bs right base, diminished bs bilateral, S ymmetrical chest expansion, good air entry bilaterally GI/Abdomen: soft, NTND, good bowel sounds, no guarding or rebound /Bladder: no suprapubic tenderness, no CVA or paraspinal tenderness Extermity/Skin: no c/c/e, no obvious rash MSK: FROM x 4 Neuro: CN 2-12 grossly intact, no new focal deficits Psych: calm - Constitutional Vitals: Temp Pulse Resp BP Pulse Ox 98.9 F 107 H 32 H 123/76 95 07/17/19 08:00 07/17/19 10:00 07/17/19 10:00 07/17/19 10:00 07/17/19 10:00 Results - Labs CBC & Chem 7: 07/17/19 03:00 07/17/19 03:00 Labs: Laboratory Last Values WBC 19.6 K/mm3 (4.5-11.0) H 07/17/19 03:00 RBC 4.59 M/mm3 (3.65-5.03) 07/17/19 03:00 Hgb 11.8 gm/dl (11.8-15.2) 07/17/19 03:00 Hct 36.3 % (35.5-45.6) 07/17/19 03:00 MCV 79 fl (84-94) L 07/17/19 03:00 MCH 26 pg (28-32) L 07/17/19 03:00 MCHC 33 % (32-34) 07/17/19 03:00 RDW 15.3 % (13.2-15.2) H 07/17/19 03:00 Plt Count 227 K/mm3 (140-440) 07/17/19 03:00 Add Manual Diff Complete 07/17/19 03:00 Total Counted 100 07/17/19 03:00 Seg Neutrophils % [employer] 07/17/19 03:00 Seg Neuts % (Manual) 93.0 % (40.0-70.0) H 07/17/19 03:00 Band Neutrophils % 0 % 07/17/19 03:00 Lymphocytes % (Manual) 3.0 % (13.4-35.0) L 07/17/19 03:00 Reactive Lymphs % (Man) 0 % 07/17/19 03:00 Monocytes % (Manual) 4.0 % (0.0-7.3) 07/17/19 03:00 Eosinophils % (Manual) 0 % (0.0-4.3) 07/17/19 03:00 Basophils % (Manual) 0 % (0.0-1.8) 07/17/19 03:00 Metamyelocytes % 0 % 07/17/19 03:00 Myelocytes % 0 % 07/17/19 03:00 Promyelocytes % 0 % 07/17/19 03:00 Blast Cells % 0 % 07/17/19 03:00 Nucleated RBC % Not Reportable 07/17/19 03:00 Seg Neutrophils # Man 18.2 K/mm3 (1.8-7.7) H 07/17/19 03:00 Band Neutrophils # 0.0 K/mm3 07/17/19 03:00 Lymphocytes # (Manual) 0.6 K/mm3 (1.2-5.4) L 07/17/19 03:00 Abs React Lymphs (Man) 0.0 K/mm3 07/17/19 03:00 Monocytes # (Manual) 0.8 K/mm3 (0.0-0.8) 07/17/19 03:00 Eosinophils # (Manual) 0.0 K/mm3 (0.0-0.4) 07/17/19 03:00 Basophils # (Manual) 0.0 K/mm3 (0.0-0.1) 07/17/19 03:00 Metamyelocytes # 0.0 K/mm3 07/17/19 03:00 Myelocytes # 0.0 K/mm3 07/17/19 03:00 Promyelocytes # 0.0 K/mm3 07/17/19 03:00 Blast Cells # 0.0 K/mm3 07/17/19 03:00 WBC Morphology Not Reportable 07/17/19 03:00 Hypersegmented Neuts Not Reportable 07/17/19 03:00 Hyposegmented Neuts Not Reportable 07/17/19 03:00 Hypogranular Neuts Not Reportable 07/17/19 03:00 Smudge Cells Not Reportable 07/17/19 03:00 Toxic Granulation Not Reportable 07/17/19 03:00 Toxic Vacuolation Not Reportable 07/17/19 03:00 Dohle Bodies Not Reportable 07/17/19 03:00 Pelger-Huet Anomaly Not Reportable 07/17/19 03:00 Tha Rods Not Reportable 07/17/19 03:00 Platelet Estimate Consistent w auto 07/17/19 03:00 Clumped Platelets Not Reportable 07/17/19 03:00 Plt Clumps, EDTA Not Reportable 07/17/19 03:00 Large Platelets Not Reportable 07/17/19 03:00 Giant Platelets Not Reportable 07/17/19 03:00 Platelet Satelliting Not Reportable 07/17/19 03:00 Plt Morphology Comment Not Reportable 07/17/19 03:00 RBC Morphology Not Reportable 07/17/19 03:00 Dimorphic RBCs Not Reportable 07/17/19 03:00 Polychromasia Not Reportable 07/17/19 03:00 Hypochromasia 1+ 07/17/19 03:00 Poikilocytosis Not Reportable 07/17/19 03:00 Anisocytosis 1+ 07/17/19 03:00 Microcytosis Not Reportable 07/17/19 03:00 Macrocytosis Not Reportable 07/17/19 03:00 Spherocytes Not Reportable 07/17/19 03:00 Pappenheimer Bodies Not Reportable 07/17/19 03:00 Sickle Cells Not Reportable 07/17/19 03:00 Target Cells Not Reportable 07/17/19 03:00 Tear Drop Cells Not Reportable 07/17/19 03:00 Ovalocytes Not Reportable 07/17/19 03:00 Helmet Cells Not Reportable 07/17/19 03:00 Hernandez-[place] Bodies Not Reportable 07/17/19 03:00 [place] Rings Not Reportable 07/17/19 03:00 Hector Cells Not Reportable 07/17/19 03:00 Bite Cells Not Reportable 07/17/19 03:00 Crenated Cell Not Reportable 07/17/19 03:00 Elliptocytes Not Reportable 07/17/19 03:00 Acanthocytes (Spur) Not Reportable 07/17/19 03:00 Rouleaux Not Reportable 07/17/19 03:00 Hemoglobin C Crystals Not Reportable 07/17/19 03:00 Schistocytes Not Reportable 07/17/19 03:00 Malaria parasites Not Reportable 07/17/19 03:00 James Bodies Not Reportable 07/17/19 03:00 Hem Pathologist Commnt No 07/17/19 03:00 PT 19.9 Sec. (12.2-14.9) H 07/16/19 18:05 INR 1.66 (0.87-1.13) H 07/16/19 18:05 D-Dimer 630.53 ng/mlDDU (0-234) H 07/16/19 18:05 Heparin Anti-Xa Level 0.14 U.I./ml (0.3-0.7) L 07/17/19 05:15 POC ABG pH 7.498 (7.35-7.45) H 07/16/19 23:25 POC ABG pCO2 31.9 (35-45) L 07/16/19 23:25 POC ABG pO2 56 (80-105) L 07/16/19 18:53 POC ABG HCO3 24.8 (22-26 mml/L) 07/16/19 23:25 POC ABG Total CO2 26 (23-27mmol/L) 07/16/19 23:25 POC ABG O2 Sat 87 07/16/19 23:25 POC ABG Base Excess 2 ((-2) - (+3)mmol/L) 07/16/19 23:25 FiO2 21 % 07/16/19 23:25 Sodium 137 mmol/L (137-145) 07/17/19 03:00 Potassium 2.9 mmol/L (3.6-5.0) L* 07/17/19 03:00 Chloride 93.8 mmol/L (98-107) L 07/17/19 03:00 Carbon Dioxide 22 mmol/L (22-30) 07/17/19 03:00 Anion Gap 24 mmol/L 07/17/19 03:00 BUN 54 mg/dL (9-20) H 07/17/19 03:00 Creatinine 3.8 mg/dL (0.8-1.5) H 07/17/19 03:00 Estimated GFR 21 ml/min 07/17/19 03:00 BUN/Creatinine Ratio 14 % 07/17/19 03:00 Glucose 144 mg/dL (75-100) H 07/17/19 03:00 Lactic Acid 3.10 mmol/L (0.7-2.0) H* 07/17/19 07:27 Calcium 7.2 mg/dL (8.4-10.2) L 07/17/19 03:00 Phosphorus 5.30 mg/dL (2.5-4.5) H 07/17/19 03:00 Total Bilirubin 1.80 mg/dL (0.1-1.2) H 07/16/19 17:55 Direct Bilirubin 0.9 mg/dL (0-0.2) H 07/16/19 17:55 Indirect Bilirubin 0.9 mg/dL 07/16/19 17:55 AST 59 units/L (5-40) H 07/16/19 17:55 ALT 26 units/L (7-56) 07/16/19 17:55 Alkaline Phosphatase 68 units/L (35-129) 07/16/19 17:55 Total Creatine Kinase 1776 units/L (55-170) H 07/17/19 03:00 CK-MB (CK-2) 6.5 ng/mL (0.0-4.0) H 07/17/19 03:00 CK-MB (CK-2) Rel Index 0.3 (0-4) 07/17/19 03:00 Troponin T 0.027 ng/mL (0.00-0.029) 07/17/19 03:00 NT-Pro-B Natriuret Pep 76164 pg/mL (0-450) H 07/16/19 17:55 Total Protein 7.9 g/dL (6.3-8.2) 07/16/19 17:55 Albumin 3.3 g/dL (3.9-5) L 07/16/19 17:55 Albumin/Globulin Ratio 0.7 % 07/16/19 17:55 Triglycerides 121 mg/dL (2-149) 07/16/19 17:55 Cholesterol 132 mg/dL (50-199) 07/16/19 17:55 LDL Cholesterol Direct 66 mg/dL (50-130) 07/16/19 17:55 HDL Cholesterol 39 mg/dL (40-59) L 07/16/19 17:55 Cholesterol/HDL Ratio 3.38 % 07/16/19 17:55 PTH Intact 85.36 pg/mL (15-65) H 07/17/19 03:00 Urine Color Ame (Yellow) 07/16/19 21:50 Urine Turbidity Cloudy (Clear) 07/16/19 21:50 Urine pH 5.0 (5.0-7.0) 07/16/19 21:50 Ur Specific [place] 1.017 (1.003-1.030) 07/16/19 21:50 Urine Protein 30 mg/dl mg/dL (Negative) 07/16/19 21:50 Urine Glucose (UA) Neg mg/dL (Negative) 07/16/19 21:50 Urine Ketones Neg mg/dL (Negative) 07/16/19 21:50 Urine Blood Lg (Negative) 07/16/19 21:50 Urine Nitrite Neg (Negative) 07/16/19 21:50 Urine Bilirubin Neg (Negative) 07/16/19 21:50 Urine Urobilinogen < 2.0 mg/dL (<2.0) 07/16/19 21:50 Ur Leukocyte Esterase Neg (Negative) 07/16/19 21:50 Urine WBC (Auto) 8.0 /HPF (0.0-6.0) H 07/16/19 21:50 Urine RBC (Auto) 3.0 /HPF (0.0-6.0) 07/16/19 21:50 Urine Mucus Few /HPF 07/16/19 21:50 Urine Eosinophils None seen (None Seen) 07/16/19 21:50 Urine Creatinine 327.2 mg/dL (0.1-20.0) H 07/16/19 21:50 Urine Sodium 28 mmol/L 07/16/19 21:50 Active Medications - Current Medications Current Medications: Generic Name Dose Route Start Last Admin Trade Name Freq PRN Reason Stop Dose Admin Acetaminophen 650 mg 07/16/19 23:07 Tylenol PO Q4H PRN Pain MILD(1-3)/Fever >100.5/DE LA O Albuterol 2.5 mg 07/16/19 23:07 Proventil IH Q3HRT PRN Shortness Of Breath Amlodipine Besylate 10 mg 07/17/19 10:00 07/17/19 09:25 Amlodipine PO 10 mg DAILY VERN Administration Docusate Sodium 100 mg 07/17/19 10:00 07/17/19 09:25 Colace PO 100 mg BID VERN Administration Heparin Sodium/Sodium Chloride 25,000 unit in 500 mls @ 30 mls/hr 07/16/19 23:00 07/17/19 05:54 Heparin/ 0.45% Nacl-25,000 Unit/500 Ml IV 1,600 units/hr TITR VERN 32 mls/hr Titration Protocol 1,500 UNITS/HR Azithromycin 500 mg/ Sodium 250 mls @ 250 mls/hr 07/16/19 23:06 07/16/19 23:55 Chloride IV 250 mls/hr Q24HR@2200 VERN Administration Protocol Sodium Chloride 1,000 mls @ 75 mls/hr 07/16/19 23:10 07/16/19 23:46 Nacl 0.9% 1000 Ml IV 07/17/19 12:29 75 mls/hr BOLUS ONE Administration Ceftriaxone Sodium 2 gm in 100 mls @ 200 mls/hr 07/17/19 10:00 Rocephin/Ns 2 Gm/100 Ml IV Q24HR [facility] Protocol Methylprednisolone Sodium Succinate 125 mg 07/17/19 06:36 07/17/19 08:02 Solu-Medrol IV 125 mg Q8HR VERN Administration Ondansetron HCl 4 mg 07/16/19 23:07 Zofran IV Q6H PRN Nausea And Vomiting Sodium Chloride 10 ml 07/17/19 10:00 07/17/19 09:26 Sodium Chloride Flush Syringe 10 Ml IV 10 ml BID VERN Administration Sodium Chloride 10 ml 07/16/19 23:07 Sodium Chloride Flush Syringe 10 Ml IV PRN PRN LINE FLUSH
[2019-07-17] MEDS: cefTRIAXone/NS 2 GM/100 ML 2 GM/100 ML BAG IV SCH (10:38)
--- NOTE | 2019-07-17 11:29 | Consultation ---
History of Present Illness - Reason for Consult Consult date: 07/17/19 acute renal failure, hypokalemia - History of Present Illness The patient is a 48 YO AAM with history significant for Class 2 Obesity and hypertension who presented to [facility] ED 07/16 via EMS with complaints of difficulty breathing for the past 3 days. Patient developed cough associated with BARGER on 07/14. His sob has progressively gotten worse over the past 1-2 days. Admits poor PO intake for the about 2 days. He denies any cough, hemoptysis, cp, fever, chills, leg swelling, leg pain, N, V, D, abd pain, dysuria or hematuria. Vitals were significant for tachypnea and tachycardia. Labs significant for Creat 4.2, K 2.[address] chest showed extensive R sided PNA. He was placed on BiPAP and admitted to the IMCU. His symptoms are better today. Nephrology was consulted for further evaluation of A KI. Patient denies any prior kidney problem. He was taking Lisinopril-HCTZ for HTN at home. Past History Past Medical History: hypertension Past Surgical History: No surgical history Social history: lives with family (sister), other (social alcohol use) Family history: no significant family history Medications and Allergies Allergies Allergy/AdvReac Type Severity Reaction Status Date / Time No Known Allergies Allergy Unverified 07/16/19 17:32 Home Medications Medication Instructions Recorded Confirmed Last Taken Type Lisinopril/Hydrochlorothiazide 1 tab PO QDAY 07/16/19 07/16/19 Unknown History [Zestoretic 20-12.5 mg] amLODIPine [Norvasc] 10 mg PO DAILY 07/16/19 07/16/19 Unknown History Active Meds: Active Medications Acetaminophen (Tylenol) 650 mg PO Q4H PRN PRN Reason: Pain MILD(1-3)/Fever >100.5/DE LA O Albuterol (Proventil) 2.5 mg IH Q3HRT PRN PRN Reason: Shortness Of Breath Amlodipine Besylate (Amlodipine) 10 mg PO DAILY [facility] Last Admin: 07/17/19 09:25 Dose: 10 mg Documented by: Docusate Sodium (Colace) 100 mg PO BID [facility] Last Admin: 07/17/19 09:25 Dose: 100 mg Documented by: Heparin Sodium/Sodium Chloride (Heparin/ 0.45% Nacl-25,000 Unit/500 Ml) 25,000 unit in 500 mls @ 30 mls/hr IV TITR [facility]; Protocol Last Titration: 07/17/19 05:54 Dose: 1,600 units/hr, 32 mls/hr Documented by: Azithromycin 500 mg/ Sodium (Chloride) 250 mls @ 250 mls/hr IV Q24HR@2200 VERN; Protocol Last Admin: 07/16/19 23:55 Dose: 250 mls/hr Documented by: Sodium Chloride (Nacl 0.9% 1000 Ml) 1,000 mls @ 75 mls/hr IV BOLUS ONE Stop: 07/17/19 12:29 Last Admin: 07/16/19 23:46 Dose: 75 mls/hr Documented by: Ceftriaxone Sodium (Rocephin/Ns 2 Gm/100 Ml) 2 gm in 100 mls @ 200 mls/hr IV Q24HR [facility]; Protocol Last Admin: 07/17/19 10:38 Dose: 200 mls/hr Documented by: Ondansetron HCl (Zofran) 4 mg IV Q6H PRN PRN Reason: Nausea And Vomiting Sodium Chloride (Sodium Chloride Flush Syringe 10 Ml) 10 ml IV BID [facility] Last Admin: 07/17/19 09:26 Dose: 10 ml Documented by: Sodium Chloride (Sodium Chloride Flush Syringe 10 Ml) 10 ml IV PRN PRN PRN Reason: LINE FLUSH Review of Systems Constitutional: fatigue, poor appetite, no weight loss, no weight gain, no fever, no chills, no anorexia, no weakness Cardiovascular: shortness of breath, dyspnea on exertion, high blood pressure, no chest pain, no orthopnea, no palpitations, no edema, no syncope, no lightheadedness, no paroxysmal nocturnal dyspnea, no leg edema Respiratory: shortness of breath, dyspnea on exertion, no cough, no cough with sputum, no excessive sputum, no hemoptysis, no wheezing, no home oxygen Gastrointestinal: no abdominal pain, no nausea, no vomiting, no diarrhea, no melena, no hematochezia Genitourinary Male: no dysuria, no hematuria Rectal: no bleeding Musculoskeletal: no muscle weakness, no muscle cramps Integumentary: no rash, no sores, no wounds, no jaundice Neurological: no paralysis, no convulsions, no aphasia, no change in speech, no change in mentation, no confusion, no memory loss Psychiatric: no memory loss Exam - Vital Signs Vital signs: Vital Signs Temp Pulse Resp BP 98.2 F 126 H 36 H 142/80 07/16/19 17:25 07/16/19 17:25 07/16/19 17:25 07/16/19 17:25 - General Appearance General appearance: well-developed, well-nourished, appears stated age, obese, other (no distress) EENT: ATNC, PERRL, mucous membranes dry, hearing intact, vision intact Neck: Present: neck supple, trachea midline Respiratory: Rales (R side) Heart: regular, S1S2, no murmurs Gastrointestinal: Present: normoactive bowel sounds. Absent: tenderness, distended Integumentary: no rash, warm and dry Neurologic: no focal deficit, no asterixis, alert and oriented x3 Musculoskeletal: Present: other (no edema) Psychiatric: cooperative Results - Lab Results 07/17/19 03:00 07/17/19 03:00 Most recent lab results Calcium 7.2 mg/dL (8.4-10.2) L 07/17/19 03:00 Phosphorus 5.30 mg/dL (2.5-4.5) H 07/17/19 03:00 Urine Creatinine 327.2 mg/dL (0.1-20.0) H 07/16/19 21:50 Urine Sodium 28 mmol/L 07/16/19 21:50 - Image Kidney/bladder ultrasound: report reviewed Assessment and Plan 1. Acute kidney injury: Vasomotor DEBRA in the setting of volume depletion. Renal US was negative for hydronephrosis. Suspect baseline CKD. Creatinine level is slightly better today. Continue IV fluids. Encouraged PO fluids. Monitor renal function. Renal prognosis is guarded. Avoid nephrotoxic agents. Meds dosage based on GFR. 2. FEN: Replete K. Monitor lytes. 3. R sided pneumonia: Improved. 4. Sepsis: Secondary to pneumonia. Continue IV Abx. 5. Acute hypoxic respiratory failure: Continue supplemental O2. 6. R/O Pulmonary Embolism: D-dimer elevated 630.53. VQ scan shows intermediate probability. 7. Rhabdomyolysis: Monitor CK level. 8. HTN: Monitor BP.
--- NOTE | 2019-07-17 12:40 | Vascular Lab Report ---
DUPLEX DOPPLER LOWER EXTREMITY VEINS, BILATERAL INDICATION: PE. TECHNIQUE: Duplex doppler imaging was performed through the veins of both lower extremities using venous lindsey wilfred and other maneuvers. COMPARISON: None available. FINDINGS: Right Common femoral vein: Negative. Right Superficial femoral vein: Negative. Right Popliteal vein: Negative. Right Calf veins: Negative. Left Common femoral vein: Negative. Left Superficial femoral vein: Negative. Left Popliteal vein: Negative. Left Calf veins: Negative. Additional findings: None. IMPRESSION: Negative for DVT. Signer Name: Crow Grimm MD Signed: 07/17/2019 12:36 PM Workstation Name: [id number]
[2019-07-17] MEDS: HEPARIN/ 0.45% NACL DRIP 25,000 UNIT/500 ML BAG IV SCH (15:13)
--- NOTE | 2019-07-17 15:49 | Consultation ---
History of Present Illness Consult date: 07/17/19 Requesting physician: AGUSTIN LOPEZ Reason for consult: pneumonia History of present illness: PULMONARY/CCM CONSULT NOTE (Full dictation # [id number]) Please see dictated notes for full details Extensive Right sided CAP Elevated D-dimer with intermidiate prob VQ scan but low pretest clinical prob and negative d-dimer - stop anticoagulation - treat for CAP - IV hydration for pre-renal azotemia .... thanks for the consult .. we will follow along Past History Past Medical History: hypertension Past Surgical History: No surgical history Social history: lives with family (sister), other (social alcohol use) Family history: no significant family history Medications and Allergies Allergies Allergy/AdvReac Type Severity Reaction Status Date / Time No Known Allergies Allergy Unverified 07/16/19 17:32 Home Medications Medication Instructions Recorded Confirmed Last Taken Type Lisinopril/Hydrochlorothiazide 1 tab PO QDAY 07/16/19 07/16/19 Unknown History [Zestoretic 20-12.5 mg] amLODIPine [Norvasc] 10 mg PO DAILY 07/16/19 07/16/19 Unknown History Active Meds: Active Medications Acetaminophen (Tylenol) 650 mg PO Q4H PRN PRN Reason: Pain MILD(1-3)/Fever >100.5/DE LA O Albuterol (Proventil) 2.5 mg IH Q3HRT PRN PRN Reason: Shortness Of Breath Amlodipine Besylate (Amlodipine) 10 mg PO DAILY ON LICENSE OF [facility] Last Admin: 07/17/19 09:25 Dose: 10 mg Documented by: Docusate Sodium (Colace) 100 mg PO BID ON LICENSE OF [facility] Last Admin: 07/17/19 09:25 Dose: 100 mg Documented by: Heparin Sodium/Sodium Chloride (Heparin/ 0.45% Nacl-25,000 Unit/500 Ml) 25,000 unit in 500 mls @ 30 mls/hr IV TITR ON LICENSE OF [facility]; Protocol Last Admin: 07/17/19 15:13 Dose: 1,600 units/hr, 32 mls/hr Documented by: Azithromycin 500 mg/ Sodium (Chloride) 250 mls @ 250 mls/hr IV Q24HR@2200 ON LICENSE OF [facility]; Protocol Last Admin: 07/16/19 23:55 Dose: 250 mls/hr Documented by: Ceftriaxone Sodium (Rocephin/Ns 2 Gm/100 Ml) 2 gm in 100 mls @ 200 mls/hr IV Q24HR ON LICENSE OF [facility]; Protocol Last Admin: 07/17/19 10:38 Dose: 200 mls/hr Documented by: Ondansetron HCl (Zofran) 4 mg IV Q6H PRN PRN Reason: Nausea And Vomiting Sodium Chloride (Sodium Chloride Flush Syringe 10 Ml) 10 ml IV BID ON LICENSE OF [facility] Last Admin: 07/17/19 09:26 Dose: 10 ml Documented by: Sodium Chloride (Sodium Chloride Flush Syringe 10 Ml) 10 ml IV PRN PRN PRN Reason: LINE FLUSH Physical Examination Vital signs: Vital Signs Temp Pulse Resp BP 98.2 F 126 H 36 H 142/80 07/16/19 17:25 07/16/19 17:25 07/16/19 17:25 07/16/19 17:25 Results - Laboratory Findings CBC and BMP: 07/17/19 03:00 07/17/19 03:00 ABG POC ABG pH 7.498 (7.35-7.45) H 07/16/19 23:25 POC ABG pCO2 31.9 (35-45) L 07/16/19 23:25 POC ABG HCO3 24.8 (22-26 mml/L) 07/16/19 23:25 POC ABG Total CO2 26 (23-27mmol/L) 07/16/19 23:25 POC ABG O2 Sat 87 07/16/19 23:25 PT/INR, D-dimer PT 19.9 Sec. (12.2-14.9) H 07/16/19 18:05 INR 1.66 (0.87-1.13) H 07/16/19 18:05 D-Dimer 630.53 ng/mlDDU (0-234) H 07/16/19 18:05 Abnormal lab findings: Abnormal Labs 07/16/19 07/16/19 07/16/19 17:55 18:00 18:05 WBC 17.2 H 17.5 H MCV 79 L 79 L MCH 27 L 26 L RDW 15.4 H 15.4 H Seg Neuts % (Manual) Lymphocytes % (Manual) 9.0 L Seg Neutrophils # Man 12.0 H Lymphocytes # (Manual) PT INR D-Dimer Heparin Anti-Xa Level POC ABG pH POC ABG pCO2 POC ABG pO2 Potassium Chloride BUN Creatinine Glucose Lactic Acid Calcium Phosphorus Total Bilirubin 1.80 H Direct Bilirubin 0.9 H AST 59 H Total Creatine Kinase CK-MB (CK-2) Troponin T 0.039 H NT-Pro-B Natriuret Pep 40669 H Albumin 3.3 L HDL Cholesterol 39 L PTH Intact Urine WBC (Auto) Urine Creatinine 07/16/19 07/16/19 07/16/19 18:05 18:05 18:53 WBC MCV MCH RDW Seg Neuts % (Manual) Lymphocytes % (Manual) Seg Neutrophils # Man Lymphocytes # (Manual) PT 19.9 H INR 1.66 H D-Dimer 630.53 H Heparin Anti-Xa Level POC ABG pH 7.492 H POC ABG pCO2 POC ABG pO2 56 L Potassium 2.8 L* Chloride 88.8 L BUN 44 H Creatinine 4.2 H Glucose 165 H Lactic Acid Calcium 8.0 L Phosphorus Total Bilirubin Direct Bilirubin AST Total Creatine Kinase CK-MB (CK-2) Troponin T NT-Pro-B Natriuret Pep Albumin HDL Cholesterol PTH Intact Urine WBC (Auto) Urine Creatinine 07/16/19 07/16/19 07/16/19 21:50 21:50 21:52 WBC MCV MCH RDW Seg Neuts % (Manual) Lymphocytes % (Manual) Seg Neutrophils # Man Lymphocytes # (Manual) PT INR D-Dimer Heparin Anti-Xa Level POC ABG pH POC ABG pCO2 POC ABG pO2 Potassium Chloride BUN Creatinine Glucose Lactic Acid 6.40 H* Calcium Phosphorus Total Bilirubin Direct Bilirubin AST Total Creatine Kinase CK-MB (CK-2) Troponin T NT-Pro-B Natriuret Pep Albumin HDL Cholesterol PTH Intact Urine WBC (Auto) 8.0 H Urine Creatinine 327.2 H 07/16/19 07/17/19 07/17/19 23:25 02:53 03:00 WBC MCV MCH RDW Seg Neuts % (Manual) Lymphocytes % (Manual) Seg Neutrophils # Man Lymphocytes # (Manual) PT INR D-Dimer Heparin Anti-Xa Level POC ABG pH 7.498 H POC ABG pCO2 31.9 L POC ABG pO2 Potassium Chloride BUN Creatinine Glucose Lactic Acid 4.00 H* Calcium Phosphorus Total Bilirubin Direct Bilirubin AST Total Creatine Kinase 1776 H CK-MB (CK-2) 6.5 H Troponin T NT-Pro-B Natriuret Pep Albumin HDL Cholesterol PTH Intact Urine WBC (Auto) Urine Creatinine 07/17/19 07/17/19 07/17/19 03:00 03:00 03:00 WBC 19.6 H MCV 79 L MCH 26 L RDW 15.3 H Seg Neuts % (Manual) 93.0 H Lymphocytes % (Manual) 3.0 L Seg Neutrophils # Man 18.2 H Lymphocytes # (Manual) 0.6 L PT INR D-Dimer Heparin Anti-Xa Level POC ABG pH POC ABG pCO2 POC ABG pO2 Potassium 2.9 L* Chloride 93.8 L BUN 54 H Creatinine 3.8 H Glucose 144 H Lactic Acid Calcium 7.2 L Phosphorus 5.30 H Total Bilirubin Direct Bilirubin AST Total Creatine Kinase CK-MB (CK-2) Troponin T NT-Pro-B Natriuret Pep Albumin HDL Cholesterol PTH Intact 85.36 H Urine WBC (Auto) Urine Creatinine 07/17/19 07/17/19 07/17/19 05:15 05:15 07:27 WBC MCV MCH RDW Seg Neuts % (Manual) Lymphocytes % (Manual) Seg Neutrophils # Man Lymphocytes # (Manual) PT INR D-Dimer Heparin Anti-Xa Level 0.14 L POC ABG pH POC ABG pCO2 POC ABG pO2 Potassium Chloride BUN Creatinine Glucose Lactic Acid 3.50 H* 3.10 H* Calcium Phosphorus Total Bilirubin Direct Bilirubin AST Total Creatine Kinase CK-MB (CK-2) Troponin T NT-Pro-B Natriuret Pep Albumin HDL Cholesterol PTH Intact Urine WBC (Auto) Urine Creatinine
[2019-07-17] MEDS ORDERED: POTASSIUM CHLORIDE ER 20 MEQ TAB PO ONE ×2 (16:00→22:00)
[2019-07-17] MEDS: FAMOTIDINE 20 MG TAB PO SCH ×2 (16:13→22:49)
[2019-07-17] MEDS: SODIUM CHLORIDE 0.9% 1000 ML 1,000 ML IV SCH (16:35)
--- NOTE | 2019-07-17 21:07 | Consultation ---
PULMONARY CONSULTATION NOTE CONSULTING PHYSICIAN: Mahi Resendiz, nurse practitioner for Dr. Fan Yuong. REASON FOR CONSULTATION: Presumed acute pulmonary emboli, pneumonia. CHIEF COMPLAINT AND HISTORY OF PRESENT ILLNESS: The patient is a 48-year-old -[place] male with past medical history significant only for a diagnosis of hypertension, but also obese, came into the Emergency Room complaining of difficulty breathing, shortness of breath. It had been going on for really in retrospect about 3-4 days. He remembers that on at work he had a dry cough. He also noticed some dyspnea on exertion, nothing major. He denied any gross or streaky hemoptysis. He actually denied any chest pain, pleuritic or otherwise. On Thursday, he went to work. His job does not expose him to any pulmonary toxins, no fumes. 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 When he got home and got in the chair, he says that his wall kind of collapsed right on top of him. He became very dyspneic. He called his sister. Emergency medical services were called. He was brought into the Emergency Room. He admitted to having upper respiratory tract infection around the time of , but nothing major. When he came into the Emergency Room, he was in moderate respiratory distress, tachypneic, heart rate was in the 130s. He had interrupted sentences. He was placed on bilevel positive air pressure ventilation therapy. Imaging was sought. He was found to have an acute kidney injury, acute because he does not have any history of chronic kidney disease he tells me and he has been compliant with his antihypertensive medications. He denied any diarrhea. He denied any recent long distance travel. He denied any new onset leg pain or swelling either unilaterally or bilaterally. He denies any personal history of venous thromboembolic phenomena. As mentioned, he is obese, which will be about his only risk factor that I really see here. He was admitted to the step-down unit. We are asked to assist with management. When I stopped by to see him, he was resting in bed, feeling much better. He tolerated the BiPAP machine very well overnight. He had eaten his breakfast and lunch. This really is as much of the history of presentation as I have. He denies any history of tobacco use or abuse whatsoever. PAST MEDICAL HISTORY: Hypertension, obesity. PAST SURGICAL HISTORY: Denies. MEDICATIONS: He was on at the time I stopped by to see him were reviewed, pertinent medications include the following: Tylenol 650 mg p.o. q. 4 hours p.r.n. mild pain or fevers, amlodipine 10 mg p.o. daily, Zithromax 500 mg IV daily, Rocephin 2 grams IV daily, docusate sodium 100 mg p.o. b.i.d., heparin drip was going at 1500 units per hour and adjusted per PE protocol, Zofran 4 mg IV q. 6 hours p.r.n. nausea and vomiting. ALLERGIES: No known drug allergies. DIET: Obese gentleman. Denies acute weight loss or gain in the preceding few weeks to months. FAMILY AND SOCIAL HISTORY: Lives in the community. Denies alcohol, tobacco or illicit drug use or abuse. There is a family history of diabetes and hypertension. REVIEW OF SYSTEMS: No loss of consciousness. No new onset seizures. No new onset focal weakness. He denied any dysuria. He denied any hematuria. He denied any excessive thirst. He denied any polyuria. He denied hematochezia or melena. He denied heat or cold intolerance. He denied nonrestorative sleep of any significance. He is not sure if he snores. Complete 13-system review of systems obtained. Pertinent positives and/or negatives as in body of history above, otherwise noncontributory. PHYSICAL EXAMINATION: VITAL SIGNS: At presentation, he was afebrile, temperature 98.2 degrees Fahrenheit, pulse 126, respiratory rate of 36, blood pressure 142/80, O2 sats were 97%. At that time, inspired oxygen concentration was not recorded. When I stopped by to see him, O2 sats were 99% that was on 6 liters nasal cannula. Since he has been here, his T-max has been 100.1 degrees Fahrenheit. He is a middle-aged obese -[place] male. Normocephalic, atraumatic, talking to me with full sentences, but with mild respiratory distress at rest. HEAD, EYES, EARS, NOSE, AND THROAT: Anicteric. No conjunctival erythema. Oropharynx is moist. Mallampati #4 oropharynx. No gross jugular venous distention. No thyromegaly. Grossly, no palpable lymph nodes in the supraclavicular or submandibular lymph node chains. He does have a large neck circumference. LUNGS: Auscultation of both lung morejon revealed right lung rales, almost the whole right lung really, mostly maybe about one-third of the way down to the base and significant egophony on auscultation, HEART: Sounds 1 and 2 are heard. They were regular in rate and rhythm at time of my evaluation without any rubs or murmurs. ABDOMEN: Soft, full, bowel sounds are positive, nontender. No palpable hepatosplenomegaly. EXTREMITIES: Without overt digital clubbing or cyanosis and no pedal edema. Pedal pulses are 2+ bilaterally. NEUROLOGIC: Pupils are equal, round, about 4 mm, reactive to light. Extraocular muscle movements were intact. He moves all 4 extremities spontaneously. SKIN: Normal turgor without overt cellulitis or rash. PSYCHIATRIC: Mood was normal. Affect was appropriate. LABORATORY DATA: From my review are as follows: Admission white cell count 17,200 with hemoglobin of 13.0, hematocrit of 38.9, platelet count 248, 19% band neutrophils. INR was 1.66. D-dimer was 630. Arterial blood gas at presentation showed pH of 7.49, pCO2 of 35, pO2 of 656 that was on 100% FiO2 at that time. Serum sodium was 139, potassium 3.8, chloride 89, bicarbonate 23, BUN 44, creatinine 4.2, glucose 165. Lactic acid level was 6.4, down to 3.1, now. Phosphorus elevated at 5.3, total bilirubin 1.8, AST 59, otherwise liver function tests essentially within normal limits. BNP was elevated. Troponin was 0.039. Urinalysis, large blood, negative for nitrites and leukocyte esterase. Urine creatinine 327, urine sodium 28. Two sets of blood cultures are pending, no growth to date. Unfortunately, I am unable to pull up his film. He did have a CT scan of his chest. It reports an extensive opacity in the right lung. A chest CT was done. The report mentions extensive right-sided pneumonia. A V/Q scan perhaps not unexpectedly is read as intermediate probability for pulmonary embolus due to the large V/Q defect, ventilation perfusion defect associated with the chest x-ray abnormality. Bilateral lower extremity Dopplers are negative for any deep venous thrombosis. ASSESSMENT: 1. Acute hypoxemic respiratory failure due to right-sided community-acquired pneumonia. 2. Intermediate probability V/Q scan. Doubt pulmonary embolus. 3. Acute kidney injury, appears prerenal by the FENA calculation. 4. Obesity. 5. Elevated D-dimer. 6. Leukocytosis. 7. Hypokalemia. 8. Lactic acidosis. 9. Hyperbilirubinemia. 10. Elevated serum AST 11. Elevated serum troponin. 12. Elevated serum CPK. 13. Possible rhabdomyolysis. PLAN: I am absolutely convinced we are dealing with right-sided community-acquired pneumonia in this gentleman with leukocytosis, right-sided consolidation, egophony, 19% bands at presentation and the elevated D-dimer is probably related to that process. I will go ahead and discontinue the heparin. The kidney injury appears to be prerenal. I have discussed with the hub cutter. We will continue gentle hydration and if the serum creatinine improves appropriately within the next 48 hours, I will suggest that we go ahead and do a CT angio at that point in time if cleared by Nephrology, otherwise I feel comfortable that when you look at pretest probability that we can go ahead and safely stop the heparin. If he starts making any sputum, we will be sent some for cultures and sensitivities. I will continue to monitor the lactic acid level. I will order a procalcitonin level. To aid clinical decision making, we will continue community-acquired pneumonia therapy. He is going to be placed on GI and DVT prophylaxis. Flu and pneumonia vaccination will be addressed per protocol. Thank you very much for the consult. We will follow along and make further recommendations as picture progresses/becomes clearer. JOB# [id number] PAT/BRICE
[2019-07-17] MEDS: BENZONATATE 100 MG CAP PO SCH (22:48)
[2019-07-17] MEDS: HEPARIN 5,000 UNIT/1 ML VIAL SUB-Q SCH (22:50)
[2019-07-18] MEDS: AZITHROMYCIN 500 MG in SODIUM CHLORIDE 0.9% 250ML 250 ML IV SCH (00:37)
[2019-07-18] MEDS: SODIUM CHLORIDE 0.9% 1000 ML 1,000 ML IV SCH ×2 (03:52→15:30)
[2019-07-18] MEDS: BENZONATATE 100 MG CAP PO SCH ×3 (05:11→22:13)
[2019-07-18 05:55] LABS: Calcium 7.3 mg/dL (8.4-10.2)
[2019-07-18] MEDS ORDERED: MAGNESIUM SULFATE 2 GM/50 ML BAG IV ONE (09:00)
[2019-07-18] MEDS: POTASSIUM CHLORIDE ER 20 MEQ TAB PO SCH ×2 (09:36→15:25)
[2019-07-18] MEDS: amLODIPine 10 MG TAB PO SCH (09:36)
[2019-07-18] MEDS: FAMOTIDINE 20 MG TAB PO SCH ×2 (09:37→22:13)
[2019-07-18] MEDS: HEPARIN 5,000 UNIT/1 ML VIAL SUB-Q SCH ×2 (09:37→22:13)
[2019-07-18] MEDS: DOCUSATE SODIUM 100 MG CAP PO SCH ×2 (09:43→22:13)
--- NOTE | 2019-07-18 10:28 | Progress Note ---
Assessment and Plan Assessment and plan: Patient is 48-year-old -Japanese man with a history of hypertension who presents to [facility] ED via EMS with severe SOB and cough. He was placed on Bipap because pO2 was only 56 on 1005 oxygen and admitted to IMCU. * pCXR Impressions: 1. Extensive opacity of right lung * CT Chest without contrast: Impression: 1. Extensive right-sided pneumonia * V/Q Scan Impression: The exam is criteria for intermediate probability for pulmonary embolism due to the large ventilation perfusion defect with associated chest x-ray abnormality. No discrete suspicious perfusion abnormality is seen. * Renal US Impression no acute sonographic abnormality of the kidneys. Sepsis -Secondary to pneumonia -Leukocytosis 17.5, went up due to iv steroids, will stop steroids -Tachycardia 120's-130's -T-max 100.1 -Lactic acid 6.40 -treated with IVF and IV abx Pneumonia right sided suspected Aspiration (the report doesn't mention specific location in the right lung and there is no camera icon in [facility] [employer] EMR to actually see the film) -CXR and CT Chest shows Extensive opacity of right lung -Cultures pending -Start on IV Abx Acute hypoxic respiratory failure -No Baseline home oxygen requirements -Currently on supplemental -Initial ABG done on 100% FiO2: 7.49/35/56/26 -Repeat ABG done on RA 7.49/30 8/24.8 -Monitor saturations -Continue supplemental oxygen, wean as tolerated Ruled out Pulmonary Embolism -D-dimer elevated 630.53 -VQ scan shows intermediate probability for PE -Initiated heparin protocol but stopped, venous leg doppler negative d/w Dr. Mitchell -Stopped heparin drip -Pulmonary consulted, input noted Acute kidney injury, vasomotor nephropathy -Cr on admission 4.2 -??CKD with GFR 18 -Gentle hydration with IVF -Avoid nephrotoxic agents -Renal dose all meds -Nephrology consulted Hypokalemia and hypomagnesemia -replete Magnesium via IV, recheck in am -Potassium on admission 2.8 -Received potassium replacement -Continue to monitor and replete prn Obesity -BMI 38.7kg -Diet and lifestyle modifications -May benefit from OP weight mgmt program DVT PPX -sq heparin -SCD's Disposition: continue inpatient care, try to wean off O2, renal function improving await for plateau prior to discharge, anticipate d/c in 1-2 days History Interval history: Patient was seen and examined. Follow-up on current diagnosis Right sided PNA. Overnight uneventful. Patient denies any chest pain, nausea/vomiting or severe headaches. Imaging, nursing note, chart, labs and old chart reviewed. Discussed with patient. Sister Reta at bedside. Hospitalist Physical - Physical exam Narrative exam: Gen: ill appearing, NAD, Awake, Alert, Orientated HEENT: NCAT, EOMI, PERRL, OP Clear Neck: supple, no adenopathy, no thyromegaly, no JVD CVS/Heart: regular tachycardia, normal S1S2, pulses present bilaterally Chest/Lungs: tachypneic, coarse bs right base, diminished bs bilateral, Symmetrical chest expansion, good air entry bilaterally GI/Abdomen: soft, NTND, good bowel sounds, no guarding or rebound /Bladder: no suprapubic tenderness, no CVA or paraspinal tenderness Extermity/Skin: no c/c/e, no obvious rash MSK: FROM x 4 Neuro: CN 2-12 grossly intact, no new focal deficits Psych: calm - Constitutional Vitals: Temp Pulse Resp BP Pulse Ox 98.4 F 91 H 20 142/92 93 07/18/19 05:31 07/18/19 09:36 07/18/19 05:31 07/18/19 09:36 07/18/19 05:31 Results - Labs CBC & Chem 7: 07/17/19 03:00 07/18/19 05:01 Labs: Laboratory Last Values WBC 19.6 K/mm3 (4.5-11.0) H 07/17/19 03:00 RBC 4.59 M/mm3 (3.65-5.03) 07/17/19 03:00 Hgb 11.8 gm/dl (11.8-15.2) 07/17/19 03:00 Hct 36.3 % (35.5-45.6) 07/17/19 03:00 MCV 79 fl (84-94) L 07/17/19 03:00 MCH 26 pg (28-32) L 07/17/19 03:00 MCHC 33 % (32-34) 07/17/19 03:00 RDW 15.3 % (13.2-15.2) H 07/17/19 03:00 Plt Count 227 K/mm3 (140-440) 07/17/19 03:00 Add Manual Diff Complete 07/17/19 03:00 Total Counted 100 07/17/19 03:00 Seg Neutrophils % Access Rn 07/17/19 03:00 Seg Neuts % (Manual) 93.0 % (40.0-70.0) H 07/17/19 03:00 Band Neutrophils % 0 % 07/17/19 03:00 Lymphocytes % (Manual) 3.0 % (13.4-35.0) L 07/17/19 03:00 Reactive Lymphs % (Man) 0 % 07/17/19 03:00 Monocytes % (Manual) 4.0 % (0.0-7.3) 07/17/19 03:00 Eosinophils % (Manual) 0 % (0.0-4.3) 07/17/19 03:00 Basophils % (Manual) 0 % (0.0-1.8) 07/17/19 03:00 Metamyelocytes % 0 % 07/17/19 03:00 Myelocytes % 0 % 07/17/19 03:00 Promyelocytes % 0 % 07/17/19 03:00 Blast Cells % 0 % 07/17/19 03:00 Nucleated RBC % Not Reportable 07/17/19 03:00 Seg Neutrophils # Man 18.2 K/mm3 (1.8-7.7) H 07/17/19 03:00 Band Neutrophils # 0.0 K/mm3 07/17/19 03:00 Lymphocytes # (Manual) 0.6 K/mm3 (1.2-5.4) L 07/17/19 03:00 Abs React Lymphs (Man) 0.0 K/mm3 07/17/19 03:00 Monocytes # (Manual) 0.8 K/mm3 (0.0-0.8) 07/17/19 03:00 Eosinophils # (Manual) 0.0 K/mm3 (0.0-0.4) 07/17/19 03:00 Basophils # (Manual) 0.0 K/mm3 (0.0-0.1) 07/17/19 03:00 Metamyelocytes # 0.0 K/mm3 07/17/19 03:00 Myelocytes # 0.0 K/mm3 07/17/19 03:00 Promyelocytes # 0.0 K/mm3 07/17/19 03:00 Blast Cells # 0.0 K/mm3 07/17/19 03:00 WBC Morphology Not Reportable 07/17/19 03:00 Hypersegmented Neuts Not Reportable 07/17/19 03:00 Hyposegmented Neuts Not Reportable 07/17/19 03:00 Hypogranular Neuts Not Reportable 07/17/19 03:00 Smudge Cells Not Reportable 07/17/19 03:00 Toxic Granulation Not Reportable 07/17/19 03:00 Toxic Vacuolation Not Reportable 07/17/19 03:00 Dohle Bodies Not Reportable 07/17/19 03:00 Pelger-Huet Anomaly Not Reportable 07/17/19 03:00 Tha Rods Not Reportable 07/17/19 03:00 Platelet Estimate Consistent w auto 07/17/19 03:00 Clumped Platelets Not Reportable 07/17/19 03:00 Plt Clumps, EDTA Not Reportable 07/17/19 03:00 Large Platelets Not Reportable 07/17/19 03:00 Giant Platelets Not Reportable 07/17/19 03:00 Platelet Satelliting Not Reportable 07/17/19 03:00 Plt Morphology Comment Not Reportable 07/17/19 03:00 RBC Morphology Not Reportable 07/17/19 03:00 Dimorphic RBCs Not Reportable 07/17/19 03:00 Polychromasia Not Reportable 07/17/19 03:00 Hypochromasia 1+ 07/17/19 03:00 Poikilocytosis Not Reportable 07/17/19 03:00 Anisocytosis 1+ 07/17/19 03:00 Microcytosis Not Reportable 07/17/19 03:00 Macrocytosis Not Reportable 07/17/19 03:00 Spherocytes Not Reportable 07/17/19 03:00 Pappenheimer Bodies Not Reportable 07/17/19 03:00 Sickle Cells Not Reportable 07/17/19 03:00 Target Cells Not Reportable 07/17/19 03:00 Tear Drop Cells Not Reportable 07/17/19 03:00 Ovalocytes Not Reportable 07/17/19 03:00 Helmet Cells Not Reportable 07/17/19 03:00 [place] Bodies Not Reportable 07/17/19 03:00 [place] Rings Not Reportable 07/17/19 03:00 Hector Cells Not Reportable 07/17/19 03:00 Bite Cells Not Reportable 07/17/19 03:00 Crenated Cell Not Reportable 07/17/19 03:00 Elliptocytes Not Reportable 07/17/19 03:00 Acanthocytes (Spur) Not Reportable 07/17/19 03:00 Rouleaux Not Reportable 07/17/19 03:00 Hemoglobin C Crystals Not Reportable 07/17/19 03:00 Schistocytes Not Reportable 07/17/19 03:00 Malaria parasites Not Reportable 07/17/19 03:00 James Bodies Not Reportable 07/17/19 03:00 Hem Pathologist Commnt No 07/17/19 03:00 PT 19.9 Sec. (12.2-14.9) H 07/16/19 18:05 INR 1.66 (0.87-1.13) H 07/16/19 18:05 D-Dimer 630.53 ng/mlDDU (0-234) H 07/16/19 18:05 Heparin Anti-Xa Level 0.14 U.I./ml (0.3-0.7) L 07/17/19 05:15 POC ABG pH 7.498 (7.35-7.45) H 07/16/19 23:25 POC ABG pCO2 31.9 (35-45) L 07/16/19 23:25 POC ABG pO2 56 (80-105) L 07/16/19 18:53 POC ABG HCO3 24.8 (22-26 mml/L) 07/16/19 23:25 POC ABG Total CO2 26 (23-27mmol/L) 07/16/19 23:25 POC ABG O2 Sat 87 07/16/19 23:25 POC ABG Base Excess 2 ((-2) - (+3)mmol/L) 07/16/19 23:25 FiO2 21 % 07/16/19 23:25 Sodium 141 mmol/L (137-145) 07/18/19 05:01 Potassium 3.2 mmol/L (3.6-5.0) L 07/18/19 05:01 Chloride 100.3 mmol/L (98-107) 07/18/19 05:01 Carbon Dioxide 21 mmol/L (22-30) L 07/18/19 05:01 Anion Gap 23 mmol/L 07/18/19 05:01 BUN 64 mg/dL (9-20) H 07/18/19 05:01 Creatinine 2.0 mg/dL (0.8-1.5) H 07/18/19 05:01 Estimated GFR 43 ml/min 07/18/19 05:01 BUN/Creatinine Ratio 32 % 07/18/19 05:01 Glucose 188 mg/dL (75-100) H 07/18/19 05:01 Lactic Acid 3.10 mmol/L (0.7-2.0) H* 07/17/19 07:27 Calcium 7.3 mg/dL (8.4-10.2) L 07/18/19 05:01 Phosphorus 5.30 mg/dL (2.5-4.5) H 07/17/19 03:00 Magnesium 1.60 mg/dL (1.7-2.3) L 07/18/19 05:01 Total Bilirubin 1.80 mg/dL (0.1-1.2) H 07/16/19 17:55 Direct Bilirubin 0.9 mg/dL (0-0.2) H 07/16/19 17:55 Indirect Bilirubin 0.9 mg/dL 07/16/19 17:55 AST 59 units/L (5-40) H 07/16/19 17:55 ALT 26 units/L (7-56) 07/16/19 17:55 Alkaline Phosphatase 68 units/L (35-129) 07/16/19 17:55 Total Creatine Kinase 1098 units/L (55-170) H 07/18/19 05:01 CK-MB (CK-2) 6.5 ng/mL (0.0-4.0) H 07/17/19 03:00 CK-MB (CK-2) Rel Index 0.3 (0-4) 07/17/19 03:00 Troponin T 0.027 ng/mL (0.00-0.029) 07/17/19 03:00 NT-Pro-B Natriuret Pep 68308 pg/mL (0-450) H 07/16/19 17:55 Total Protein 7.9 g/dL (6.3-8.2) 07/16/19 17:55 Albumin 3.3 g/dL (3.9-5) L 07/16/19 17:55 Albumin/Globulin Ratio 0.7 % 07/16/19 17:55 Triglycerides 121 mg/dL (2-149) 07/16/19 17:55 Cholesterol 132 mg/dL (50-199) 07/16/19 17:55 LDL Cholesterol Direct 66 mg/dL (50-130) 07/16/19 17:55 HDL Cholesterol 39 mg/dL (40-59) L 07/16/19 17:55 Cholesterol/HDL Ratio 3.38 % 07/16/19 17:55 Procalcitonin 116.75 ng/mL (<0.15) 07/17/19 19:24 PTH Intact 85.36 pg/mL (15-65) H 07/17/19 03:00 Urine Color Ame (Yellow) 07/16/19 21:50 Urine Turbidity Cloudy (Clear) 07/16/19 21:50 Urine pH 5.0 (5.0-7.0) 07/16/19 21:50 Ur Specific [place] 1.017 (1.003-1.030) 07/16/19 21:50 Urine Protein 30 mg/dl mg/dL (Negative) 07/16/19 21:50 Urine Glucose (UA) Neg mg/dL (Negative) 07/16/19 21:50 Urine Ketones Neg mg/dL (Negative) 07/16/19 21:50 Urine Blood Lg (Negative) 07/16/19 21:50 Urine Nitrite Neg (Negative) 07/16/19 21:50 Urine Bilirubin Neg (Negative) 07/16/19 21:50 Urine Urobilinogen < 2.0 mg/dL (<2.0) 07/16/19 21:50 Ur Leukocyte Esterase Neg (Negative) 07/16/19 21:50 Urine WBC (Auto) 8.0 /HPF (0.0-6.0) H 07/16/19 21:50 Urine RBC (Auto) 3.0 /HPF (0.0-6.0) 07/16/19 21:50 Urine Mucus Few /HPF 07/16/19 21:50 Urine Eosinophils None seen (None Seen) 07/16/19 21:50 Urine Creatinine 327.2 mg/dL (0.1-20.0) H 07/16/19 21:50 Urine Sodium 28 mmol/L 07/16/19 21:50 Active Medications - Current Medications Current Medications: Generic Name Dose Route Start Last Admin Trade Name Freq PRN Reason Stop Dose Admin Acetaminophen 650 mg 07/16/19 23:07 Tylenol PO Q4H PRN Pain MILD(1-3)/Fever >100.5/DE LA O Albuterol 2.5 mg 07/16/19 23:07 Proventil IH Q3HRT PRN Shortness Of Breath Amlodipine Besylate 10 mg 07/17/19 10:00 07/18/19 09:36 Amlodipine PO 10 mg DAILY VERN Administration Benzonatate 100 mg 07/17/19 22:00 07/18/19 05:11 Tessalon Perles PO 07/20/19 21:59 100 mg Q8HR VERN Administration Docusate Sodium 100 mg 07/17/19 10:00 07/18/19 09:43 Colace PO Not Given BID VERN Famotidine 20 mg 07/17/19 16:00 07/18/19 09:37 Pepcid PO 20 mg BID VERN Administration Heparin Sodium (Porcine) 5,000 unit 07/17/19 22:00 07/18/19 09:37 Heparin SUB-Q 5,000 unit Q12HR VENR Administration Azithromycin 500 mg/ Sodium 250 mls @ 250 mls/hr 07/16/19 23:06 07/18/19 00:37 Chloride IV 250 mls/hr Q24HR@2200 VERN Administration Protocol Ceftriaxone Sodium 2 gm in 100 mls @ 200 mls/hr 07/17/19 10:00 07/17/19 10:38 Rocephin/Ns 2 Gm/100 Ml IV 200 mls/hr Q24HR VERN Administration Protocol Sodium Chloride 1,000 mls @ 100 mls/hr 07/17/19 16:30 07/18/19 03:52 Nacl 0.9% 1000 Ml IV 100 mls/hr DIRECT VERN Administration Magnesium Sulfate 2 gm in 50 mls @ 25 mls/hr 07/18/19 09:00 07/18/19 09:43 Magnesium Sulfate 2gm/50ml IV 07/18/19 10:59 25 mls/hr ONCE ONE Administration Ondansetron HCl 4 mg 07/16/19 23:07 Zofran IV Q6H PRN Nausea And Vomiting Potassium Chloride 40 meq 07/18/19 09:00 07/18/19 09:36 K-Dur PO 07/18/19 15:01 40 meq Q6H VERN Administration Sodium Chloride 10 ml 07/17/19 10:00 07/17/19 22:50 Sodium Chloride Flush Syringe 10 Ml IV 10 ml BID VERN Administration Sodium Chloride 10 ml 07/16/19 23:07 Sodium Chloride Flush Syringe 10 Ml IV PRN PRN LINE FLUSH
[2019-07-18] MEDS ORDERED: POTASSIUM CHLORIDE ER 20 MEQ TAB PO ONE ×2 (10:29→18:00)
--- NOTE | 2019-07-18 10:46 | Progress Note ---
Assessment and Plan 1. Acute kidney injury: Vasomotor DEBRA in the setting of volume depletion. Renal US was negative for hydronephrosis. Suspect baseline CKD. Renal function is improving. Continue IV fluids. Encouraged PO fluids. Monitor renal function. Avoid nephrotoxic agents. Meds dosage based on GFR. 2. FEN: Replete K and Mg. Monitor lytes. 3. R sided pneumonia: Continue Abx. 4. Sepsis: Secondary to pneumonia. Continue IV Abx. 5. Acute hypoxic respiratory failure: Continue supplemental O2. 6. R/O Pulmonary Embolism: D-dimer elevated 630.53. VQ scan shows intermediate probability. 7. Rhabdomyolysis: Monitor CK level. 8. HTN: Monitor BP. Examination: General appearance: well-developed, well-nourished, appears stated age, obese, no distress HEENT: ATNC, NIYA, hearing intact, vision intact Neck: neck supple, trachea midline Respiratory: Rales (R side) Heart: regular, S1S2, no murmurs Gastrointestinal: soft, normoactive bowel sounds, not tender Integumentary: no rash, warm and dry Neurologic: no focal deficit, no asterixis, alert and oriented x3 Ext: no edema Psychiatric: cooperative Subjective Date of service: 07/18/19 Interval history: Patient was seen and examined at the bedside. Objective - Vital Signs Vital signs: Vital Signs - 12hr 07/18/19 07/18/19 05:31 09:36 Temperature 98.4 F Pulse Rate 91 H 91 H Respiratory 20 Rate Blood Pressure 142/92 142/92 O2 Sat by Pulse 93 Oximetry - Lab 07/17/19 03:00 07/18/19 05:01 Most recent lab results Calcium 7.3 mg/dL (8.4-10.2) L 07/18/19 05:01 Phosphorus 5.30 mg/dL (2.5-4.5) H 07/17/19 03:00 Magnesium 1.60 mg/dL (1.7-2.3) L 07/18/19 05:01 Urine Creatinine 327.2 mg/dL (0.1-20.0) H 07/16/19 21:50 Urine Sodium 28 mmol/L 07/16/19 21:50 Medications & Allergies - Medications Allergies/Adverse Reactions: Allergies No Known Allergies Allergy (Unverified 07/16/19 17:32) Home Medications: Home Medications Medication Instructions Recorded Confirmed Last Taken Type Lisinopril/Hydrochlorothiazide 1 tab PO QDAY 07/16/19 07/16/19 Unknown History [Zestoretic 20-12.5 mg] amLODIPine [Norvasc] 10 mg PO DAILY 07/16/19 07/16/19 Unknown History Active Medications: Generic Name Dose Route Start Last Admin Trade Name Freq PRN Reason Stop Dose Admin Acetaminophen 650 mg 07/16/19 23:07 Tylenol PO Q4H PRN Pain MILD(1-3)/Fever >100.5/DE LA O Albuterol 2.5 mg 07/16/19 23:07 Proventil IH Q3HRT PRN Shortness Of Breath Amlodipine Besylate 10 mg 07/17/19 10:00 07/18/19 09:36 Amlodipine PO 10 mg DAILY VERN Administration Benzonatate 100 mg 07/17/19 22:00 07/18/19 05:11 Tessalon Perles PO 07/20/19 21:59 100 mg Q8HR VERN Administration Docusate Sodium 100 mg 07/17/19 10:00 07/18/19 09:43 Colace PO Not Given BID VERN Famotidine 20 mg 07/17/19 16:00 07/18/19 09:37 Pepcid PO 20 mg BID VERN Administration Heparin Sodium (Porcine) 5,000 unit 07/17/19 22:00 07/18/19 09:37 Heparin SUB-Q 5,000 unit Q12HR VERN Administration Azithromycin 500 mg/ Sodium 250 mls @ 250 mls/hr 07/16/19 23:06 07/18/19 00:37 Chloride IV 250 mls/hr Q24HR@2200 VERN Administration Protocol Ceftriaxone Sodium 2 gm in 100 mls @ 200 mls/hr 07/17/19 10:00 07/17/19 10:38 Rocephin/Ns 2 Gm/100 Ml IV 200 mls/hr Q24HR VERN Administration Protocol Sodium Chloride 1,000 mls @ 100 mls/hr 07/17/19 16:30 07/18/19 03:52 Nacl 0.9% 1000 Ml IV 100 mls/hr DIRECT VERN Administration Magnesium Sulfate 2 gm in 50 mls @ 25 mls/hr 07/18/19 09:00 07/18/19 09:43 Magnesium Sulfate 2gm/50ml IV 07/18/19 10:59 25 mls/hr ONCE ONE Administration Ondansetron HCl 4 mg 07/16/19 23:07 Zofran IV Q6H PRN Nausea And Vomiting Potassium Chloride 40 meq 07/18/19 09:00 07/18/19 09:36 K-Dur PO 07/18/19 15:01 40 meq Q6H VERN Administration Potassium Chloride 40 meq 07/18/19 18:00 K-Dur PO 07/18/19 18:01 ONCE ONE Sodium Chloride 10 ml 07/17/19 10:00 07/17/19 22:50 Sodium Chloride Flush Syringe 10 Ml IV 10 ml BID VERN Administration Sodium Chloride 10 ml 07/16/19 23:07 Sodium Chloride Flush Syringe 10 Ml IV PRN PRN LINE FLUSH
[2019-07-18] MEDS: cefTRIAXone/NS 2 GM/100 ML 2 GM/100 ML BAG IV SCH (14:10)
--- NOTE | 2019-07-18 14:26 | Progress Note ---
Assessment and Plan Patient alert, awake, resting on 3L O2 nasal cannula with saturation of 95%. BiPAP standby in the room. No complaint of chest pain, SOB, or cough. No history of smoking, alcohol or drug abuse. Patient morbidly obese. Denied JASWINDER or any other medical problems except HTN. - Patient Problems (1) Acute respiratory distress Current Visit: Yes Status: Acute Plan to address problem: patient improved presently on 3L O2 Recommend ABGs on room air (2) Elevated troponin Current Visit: Yes Status: Acute Plan to address problem: management as per cardiology (3) Lactic acidosis Current Visit: Yes Status: Acute Plan to address problem: Repeat lactic acid level Obtain ABGs (4) Pneumonia Current Visit: Yes Status: Acute Qualifiers: Pneumonia type: due to unspecified organism Laterality: right Lung location: unspecified part of lung Qualified Code(s): J18.9 - Pneumonia, unspecified organism Plan to address problem: Patient is on Ceftriaxone and Azithromax (5) Renal failure Current Visit: Yes Status: Acute Qualifiers: Renal failure chronicity: acute Acute renal failure type: unspecified Qualified Code(s): N17.9 - Acute kidney failure, unspecified Plan to address problem: Management as per nephrology (6) Sepsis Current Visit: Yes Status: Acute Qualifiers: Sepsis type: sepsis due to unspecified organism Sepsis acute organ dysfunction status: unspecified Qualified Code(s): A41.9 - Sepsis, unspecified organism Plan to address problem: Patient is on Ceftriaxone and Azithromax Subjective Date of service: 07/18/19 Interval history: Patient alert, awake, resting on 3L O2 nasal cannula with saturation of 95%. BiPAP standby in the room. No complaint of chest pain, SOB, or cough. No history of smoking, alcohol or drug abuse. Patient morbidly obese. Denied JASWINDER or any other medical problems except HTN. Objective Vital Signs - 12hr 07/18/19 07/18/19 07/18/19 05:31 09:36 12:10 Temperature 98.4 F 98.3 F Pulse Rate 91 H 91 H 92 H Respiratory 20 24 Rate Blood Pressure 142/92 142/92 126/80 O2 Sat by Pulse 93 88 Oximetry Constitutional: no acute distress, alert, other (obese) Eyes: non-icteric ENT: oropharynx moist Neck: supple Effort: normal Ascultation: Bilateral: diminished breath sounds (bases), rales Cardiovascular: regular rate and rhythm Gastrointestinal: normoactive bowel sounds, soft Integumentary: normal Extremities: no cyanosis, no edema Neurologic: normal mental status, non-focal exam, pupils equal and round Psychiatric: mood appropriate, affect normal CBC and BMP: 07/17/19 03:00 07/18/19 05:01 ABG, PT/INR, D-dimer: ABG POC ABG pH 7.498 (7.35-7.45) H 07/16/19 23:25 POC ABG pCO2 31.9 (35-45) L 07/16/19 23:25 POC ABG HCO3 24.8 (22-26 mml/L) 07/16/19 23:25 POC ABG Total CO2 26 (23-27mmol/L) 07/16/19 23:25 POC ABG O2 Sat 87 07/16/19 23:25 PT/INR, D-dimer PT 19.9 Sec. (12.2-14.9) H 07/16/19 18:05 INR 1.66 (0.87-1.13) H 07/16/19 18:05 D-Dimer 630.53 ng/mlDDU (0-234) H 07/16/19 18:05 Abnormal lab findings: Abnormal Labs 07/16/19 07/16/19 07/16/19 17:55 18:00 18:05 WBC 17.2 H 17.5 H MCV 79 L 79 L MCH 27 L 26 L RDW 15.4 H 15.4 H Seg Neuts % (Manual) Lymphocytes % (Manual) 9.0 L Seg Neutrophils # Man 12.0 H Lymphocytes # (Manual) PT INR D-Dimer Heparin Anti-Xa Level POC ABG pH POC ABG pCO2 POC ABG pO2 Potassium Chloride Carbon Dioxide BUN Creatinine Glucose Lactic Acid Calcium Phosphorus Magnesium Total Bilirubin 1.80 H Direct Bilirubin 0.9 H AST 59 H Total Creatine Kinase CK-MB (CK-2) Troponin T 0.039 H NT-Pro-B Natriuret Pep 63740 H Albumin 3.3 L HDL Cholesterol 39 L PTH Intact Urine WBC (Auto) Urine Creatinine 07/16/19 07/16/19 07/16/19 18:05 18:05 18:53 WBC MCV MCH RDW Seg Neuts % (Manual) Lymphocytes % (Manual) Seg Neutrophils # Man Lymphocytes # (Manual) PT 19.9 H INR 1.66 H D-Dimer 630.53 H Heparin Anti-Xa Level POC ABG pH 7.492 H POC ABG pCO2 POC ABG pO2 56 L Potassium 2.8 L* Chloride 88.8 L Carbon Dioxide BUN 44 H Creatinine 4.2 H Glucose 165 H Lactic Acid Calcium 8.0 L Phosphorus Magnesium Total Bilirubin Direct Bilirubin AST Total Creatine Kinase CK-MB (CK-2) Troponin T NT-Pro-B Natriuret Pep Albumin HDL Cholesterol PTH Intact Urine WBC (Auto) Urine Creatinine 07/16/19 07/16/19 07/16/19 21:50 21:50 21:52 WBC MCV MCH RDW Seg Neuts % (Manual) Lymphocytes % (Manual) Seg Neutrophils # Man Lymphocytes # (Manual) PT INR D-Dimer Heparin Anti-Xa Level POC ABG pH POC ABG pCO2 POC ABG pO2 Potassium Chloride Carbon Dioxide BUN Creatinine Glucose Lactic Acid 6.40 H* Calcium Phosphorus Magnesium Total Bilirubin Direct Bilirubin AST Total Creatine Kinase CK-MB (CK-2) Troponin T NT-Pro-B Natriuret Pep Albumin HDL Cholesterol PTH Intact Urine WBC (Auto) 8.0 H Urine Creatinine 327.2 H 07/16/19 07/17/19 07/17/19 23:25 02:53 03:00 WBC MCV MCH RDW Seg Neuts % (Manual) Lymphocytes % (Manual) Seg Neutrophils # Man Lymphocytes # (Manual) PT INR D-Dimer Heparin Anti-Xa Level POC ABG pH 7.498 H POC ABG pCO2 31.9 L POC ABG pO2 Potassium Chloride Carbon Dioxide BUN Creatinine Glucose Lactic Acid 4.00 H* Calcium Phosphorus Magnesium Total Bilirubin Direct Bilirubin AST Total Creatine Kinase 1776 H CK-MB (CK-2) 6.5 H Troponin T NT-Pro-B Natriuret Pep Albumin HDL Cholesterol PTH Intact Urine WBC (Auto) Urine Creatinine 07/17/19 07/17/19 07/17/19 03:00 03:00 03:00 WBC 19.6 H MCV 79 L MCH 26 L RDW 15.3 H Seg Neuts % (Manual) 93.0 H Lymphocytes % (Manual) 3.0 L Seg Neutrophils # Man 18.2 H Lymphocytes # (Manual) 0.6 L PT INR D-Dimer Heparin Anti-Xa Level POC ABG pH POC ABG pCO2 POC ABG pO2 Potassium 2.9 L* Chloride 93.8 L Carbon Dioxide BUN 54 H Creatinine 3.8 H Glucose 144 H Lactic Acid Calcium 7.2 L Phosphorus 5.30 H Magnesium Total Bilirubin Direct Bilirubin AST Total Creatine Kinase CK-MB (CK-2) Troponin T NT-Pro-B Natriuret Pep Albumin HDL Cholesterol PTH Intact 85.36 H Urine WBC (Auto) Urine Creatinine 07/17/19 07/17/19 07/17/19 05:15 05:15 07:27 WBC MCV MCH RDW Seg Neuts % (Manual) Lymphocytes % (Manual) Seg Neutrophils # Man Lymphocytes # (Manual) PT INR D-Dimer Heparin Anti-Xa Level 0.14 L POC ABG pH POC ABG pCO2 POC ABG pO2 Potassium Chloride Carbon Dioxide BUN Creatinine Glucose Lactic Acid 3.50 H* 3.10 H* Calcium Phosphorus Magnesium Total Bilirubin Direct Bilirubin AST Total Creatine Kinase CK-MB (CK-2) Troponin T NT-Pro-B Natriuret Pep Albumin HDL Cholesterol PTH Intact Urine WBC (Auto) Urine Creatinine 07/17/19 07/18/19 15:08 05:01 WBC MCV MCH RDW Seg Neuts % (Manual) Lymphocytes % (Manual) Seg Neutrophils # Man Lymphocytes # (Manual) PT INR D-Dimer Heparin Anti-Xa Level POC ABG pH POC ABG pCO2 POC ABG pO2 Potassium 2.9 L* 3.2 L Chloride Carbon Dioxide 21 L BUN 64 H Creatinine 2.0 H Glucose 188 H Lactic Acid Calcium 7.3 L Phosphorus Magnesium 1.60 L Total Bilirubin Direct Bilirubin AST Total Creatine Kinase 1098 H CK-MB (CK-2) Troponin T NT-Pro-B Natriuret Pep Albumin HDL Cholesterol PTH Intact Urine WBC (Auto) Urine Creatinine
[2019-07-19] MEDS: AZITHROMYCIN 500 MG in SODIUM CHLORIDE 0.9% 250ML 250 ML IV SCH ×2 (00:11→22:35)
[2019-07-19] MEDS: BENZONATATE 100 MG CAP PO SCH ×3 (06:29→21:45)
--- NOTE | 2019-07-19 08:51 | Progress Note ---
Assessment and Plan 1. Acute kidney injury: Vasomotor DEBRA in the setting of volume depletion. Renal US was negative for hydronephrosis. Suspect baseline CKD. Renal function improved. Encouraged PO fluids. Monitor renal function. Avoid nephrotoxic agents. Meds dosage based on GFR. 2. FEN: Replete K. Monitor lytes. 3. R sided pneumonia: Continue Abx. 4. Sepsis: Secondary to pneumonia. Continue IV Abx. 5. Acute hypoxic respiratory failure: Continue supplemental O2. 6. R/O Pulmonary Embolism: D-dimer elevated 630.53. VQ scan shows intermediate probability. 7. Rhabdomyolysis: Monitor CK level. 8. HTN: Monitor BP. Will sign off. F/u with me in 2 weeks. Examination: General appearance: well-developed, well-nourished, appears stated age, obese, no distress HEENT: ATNC, NIYA, hearing intact, vision intact Neck: neck supple, trachea midline Respiratory: Rales (R side) Heart: regular, S1S2, no murmurs Gastrointestinal: soft, normoactive bowel sounds, not tender Integumentary: no rash, warm and dry Neurologic: no focal deficit, no asterixis, alert and oriented x3 Ext: no edema Psychiatric: cooperative Subjective Date of service: 07/19/19 Interval history: Patient was seen and examined at the bedside. Doing much better. Objective - Vital Signs Vital signs: Vital Signs - 12hr 07/18/19 07/19/19 07/19/19 22:00 00:01 06:14 Temperature 98.7 F 98.3 F Pulse Rate 80 76 Respiratory 22 18 18 Rate Blood Pressure 110/70 135/87 O2 Sat by Pulse 93 92 96 Oximetry - Lab 07/19/19 09:16 07/19/19 09:16 Most recent lab results Calcium 7.3 mg/dL (8.4-10.2) L 07/18/19 05:01 Phosphorus 5.30 mg/dL (2.5-4.5) H 07/17/19 03:00 Magnesium 1.60 mg/dL (1.7-2.3) L 07/18/19 05:01 Urine Creatinine 327.2 mg/dL (0.1-20.0) H 07/16/19 21:50 Urine Sodium 28 mmol/L 07/16/19 21:50 Medications & Allergies - Medications Allergies/Adverse Reactions: Allergies No Known Allergies Allergy (Unverified 07/16/19 17:32) Home Medications: Home Medications Medication Instructions Recorded Confirmed Last Taken Type Lisinopril/Hydrochlorothiazide 1 tab PO QDAY 07/16/19 07/16/19 Unknown History [Zestoretic 20-12.5 mg] amLODIPine [Norvasc] 10 mg PO DAILY 07/16/19 07/16/19 Unknown History Active Medications: Generic Name Dose Route Start Last Admin Trade Name Freq PRN Reason Stop Dose Admin Acetaminophen 650 mg 07/16/19 23:07 Tylenol PO Q4H PRN Pain MILD(1-3)/Fever >100.5/DE LA O Albuterol 2.5 mg 07/16/19 23:07 Proventil IH Q3HRT PRN Shortness Of Breath Amlodipine Besylate 10 mg 07/17/19 10:00 07/18/19 09:36 Amlodipine PO 10 mg DAILY VERN Administration Benzonatate 100 mg 07/17/19 22:00 07/19/19 06:29 Tessalon Perles PO 07/20/19 21:59 100 mg Q8HR VERN Administration Docusate Sodium 100 mg 07/17/19 10:00 07/18/19 22:13 Colace PO 100 mg BID VERN Administration Famotidine 20 mg 07/17/19 16:00 07/18/19 22:13 Pepcid PO 20 mg BID VERN Administration Heparin Sodium (Porcine) 5,000 unit 07/17/19 22:00 07/18/19 22:13 Heparin SUB-Q 5,000 unit Q12HR VERN Administration Azithromycin 500 mg/ Sodium 250 mls @ 250 mls/hr 07/16/19 23:06 07/19/19 0 0:11 Chloride IV 250 mls/hr Q24HR@2200 VERN Administration Protocol Ceftriaxone Sodium 2 gm in 100 mls @ 200 mls/hr 07/17/19 10:00 07/18/19 14:10 Rocephin/Ns 2 Gm/100 Ml IV 200 mls/hr Q24HR VERN Administration Protocol Sodium Chloride 1,000 mls @ 100 mls/hr 07/17/19 16:30 07/18/19 15:30 Nacl 0.9% 1000 Ml IV 100 mls/hr DIRECT VERN Administration Ondansetron HCl 4 mg 07/16/19 23:07 Zofran IV Q6H PRN Nausea And Vomiting Sodium Chloride 10 ml 07/17/19 10:00 07/18/19 22:14 Sodium Chloride Flush Syringe 10 Ml IV Not Given BID VERN Sodium Chloride 10 ml 07/16/19 23:07 Sodium Chloride Flush Syringe 10 Ml IV PRN PRN LINE FLUSH
[2019-07-19 10:31] LABS: Hematocrit 36.7 % (35.5-45.6); Hemoglobin 11.8 gm/dl (11.8-15.2); Mean Corpuscular HGB Conc 32 % (32-34); Mean Corpuscular Volume 80 fl (84-94); Platelet Count 256 K/mm3 (140-440); Red Blood Count 4.58 M/mm3 (3.65-5.03); Red Cell Distribution Width 15.9 % (13.2-15.2)
[2019-07-19] MEDS: cefTRIAXone/NS 2 GM/100 ML 2 GM/100 ML BAG IV SCH (10:56)
[2019-07-19 10:57] LABS: BUN/Creatinine Ratio 33; Blood Urea Nitrogen 40 mg/dL (9-20); Calcium 7.9 mg/dL (8.4-10.2); Hemolysis Index 4
[2019-07-19] MEDS: HEPARIN 5,000 UNIT/1 ML VIAL SUB-Q SCH ×2 (10:57→21:46)
[2019-07-19] MEDS: FAMOTIDINE 20 MG TAB PO SCH ×2 (10:57→21:45)
[2019-07-19] MEDS: DOCUSATE SODIUM 100 MG CAP PO SCH ×2 (10:58→21:46)
[2019-07-19] MEDS: amLODIPine 10 MG TAB PO SCH (10:59)
[2019-07-19] MEDS: SODIUM CHLORIDE 0.9% 1000 ML 1,000 ML IV SCH (12:32)
--- NOTE | 2019-07-19 12:55 | Progress Note ---
Assessment and Plan atient alert, awake, resting on room air with saturation of 95%. No complaint of chest pain, SOB, or cough. No acute respiratory distress. Patients ABGs on room air reported PO2 55. Recommend Home O2 2 litres via nasal canula. - Patient Problems (1) Acute respiratory distress Current Visit: Yes Status: Acute Plan to address problem: Patients ABGs on room air reported PO2 55. Recommend Home O2 2 litres via nasal canula. (2) Elevated troponin Current Visit: Yes Status: Acute Plan to address problem: management as per cardiology (3) Lactic acidosis Current Visit: Yes Status: Acute Plan to address problem: Improved. Patients ABGs PH 7.47 , PO2 55, PCO2 40 , HCO3 29. O2 saturation 90% on room air. (4) Pneumonia Current Visit: Yes Status: Acute Qualifiers: Pneumonia type: due to unspecified organism Laterality: right Lung location: unspecified part of lung Qualified Code(s): J18.9 - Pneumonia, unspecified organism Plan to address problem: Patient is on Ceftriaxone and Azithromax (5) Renal failure Current Visit: Yes Status: Acute Qualifiers: Renal failure chronicity: acute Acute renal failure type: unspecified Qualified Code(s): N17.9 - Acute kidney failure, unspecified Plan to address problem: Management as per nephrology (6) Sepsis Current Visit: Yes Status: Acute Qualifiers: Sepsis type: sepsis due to unspecified organism Sepsis acute organ dysfunction status: unspecified Qualified Code(s): A41.9 - Sepsis, unspecified organism Plan to address problem: Patient is on Ceftriaxone and Azithromax Subjective Date of service: 07/19/19 Interval history: Patient alert, awake, resting on room air with saturation of 95%. No complaint of chest pain, SOB, or cough. No acute respiratory distress. Patients ABGs on room air reported PO2 55. Recommend Home O2 2 litres via nasal canula. Objective Vital Signs - 12hr 07/19/19 07/19/19 07/19/19 06:14 10:59 11:27 Temperature 98.3 F 98.5 F Pulse Rate 76 76 84 Respiratory 18 22 Rate Blood Pressure 135/87 135/87 145/95 O2 Sat by Pulse 96 95 Oximetry Constitutional: no acute distress, alert, other (obese) Eyes: non-icteric ENT: oropharynx moist Neck: supple Effort: normal Ascultation: Bilateral: diminished breath sounds (bases), rhonchi Cardiovascular: regular rate and rhythm Gastrointestinal: normoactive bowel sounds, soft Integumentary: normal Extremities: no cyanosis, no edema Neurologic: normal mental status, non-focal exam, pupils equal and round Psychiatric: mood appropriate, affect normal CBC and BMP: 07/19/19 09:16 07/19/19 09:16 ABG, PT/INR, D-dimer: ABG POC ABG pH 7.498 (7.35-7.45) H 07/16/19 23:25 POC ABG pCO2 31.9 (35-45) L 07/16/19 23:25 POC ABG HCO3 24.8 (22-26 mml/L) 07/16/19 23:25 POC ABG Total CO2 26 (23-27mmol/L) 07/16/19 23:25 POC ABG O2 Sat 87 07/16/19 23:25 PT/INR, D-dimer PT 19.9 Sec. (12.2-14.9) H 07/16/19 18:05 INR 1.66 (0.87-1.13) H 07/16/19 18:05 D-Dimer 630.53 ng/mlDDU (0-234) H 07/16/19 18:05 Abnormal lab findings: Abnormal Labs 07/16/19 07/16/19 07/16/19 17:55 18:00 18:05 WBC 17.2 H 17.5 H MCV 79 L 79 L MCH 27 L 26 L RDW 15.4 H 15.4 H Seg Neuts % (Manual) Lymphocytes % (Manual) 9.0 L Seg Neutrophils # Man 12.0 H Lymphocytes # (Manual) PT INR D-Dimer Heparin Anti-Xa Level POC ABG pH POC ABG pCO2 POC ABG pO2 Potassium Chloride Carbon Dioxide BUN Creatinine Glucose Lactic Acid Calcium Phosphorus Magnesium Total Bilirubin 1.80 H Direct Bilirubin 0.9 H AST 59 H Total Creatine Kinase CK-MB (CK-2) Troponin T 0.039 H NT-Pro-B Natriuret Pep 28998 H Albumin 3.3 L HDL Cholesterol 39 L PTH Intact Urine WBC (Auto) Urine Creatinine 07/16/19 07/16/19 07/16/19 18:05 18:05 18:53 WBC MCV MCH RDW Seg Neuts % (Manual) Lymphocytes % (Manual) Seg Neutrophils # Man Lymphocytes # (Manual) PT 19.9 H INR 1.66 H D-Dimer 630.53 H Heparin Anti-Xa Level POC ABG pH 7.492 H POC ABG pCO2 POC ABG pO2 56 L Potassium 2.8 L* Chloride 88.8 L Carbon Dioxide BUN 44 H Creatinine 4.2 H Glucose 165 H Lactic Acid Calcium 8.0 L Phosphorus Magnesium Total Bilirubin Direct Bilirubin AST Total Creatine Kinase CK-MB (CK-2) Troponin T NT-Pro-B Natriuret Pep Albumin HDL Cholesterol PTH Intact Urine WBC (Auto) Urine Creatinine 07/16/19 07/16/19 07/16/19 21:50 21:50 21:52 WBC MCV MCH RDW Seg Neuts % (Manual) Lymphocytes % (Manual) Seg Neutrophils # Man Lymphocytes # (Manual) PT INR D-Dimer Heparin Anti-Xa Level POC ABG pH POC ABG pCO2 POC ABG pO2 Potassium Chloride Carbon Dioxide BUN Creatinine Glucose Lactic Acid 6.40 H* Calcium Phosphorus Magnesium Total Bilirubin Direct Bilirubin AST Total Creatine Kinase CK-MB (CK-2) Troponin T NT-Pro-B Natriuret Pep Albumin HDL Cholesterol PTH Intact Urine WBC (Auto) 8.0 H Urine Creatinine 327.2 H 07/16/19 07/17/19 07/17/19 23:25 02:53 03:00 WBC MCV MCH RDW Seg Neuts % (Manual) Lymphocytes % (Manual) Seg Neutrophils # Man Lymphocytes # (Manual) PT INR D-Dimer Heparin Anti-Xa Level POC ABG pH 7.498 H POC ABG pCO2 31.9 L POC ABG pO2 Potassium Chloride Carbon Dioxide BUN Creatinine Glucose Lactic Acid 4.00 H* Calcium Phosphorus Magnesium Total Bilirubin Direct Bilirubin AST Total Creatine Kinase 1776 H CK-MB (CK-2) 6.5 H Troponin T NT-Pro-B Natriuret Pep Albumin HDL Cholesterol PTH Intact Urine WBC (Auto) Urine Creatinine 07/17/19 07/17/19 07/17/19 03:00 03:00 03:00 WBC 19.6 H MCV 79 L MCH 26 L RDW 15.3 H Seg Neuts % (Manual) 93.0 H Lymphocytes % (Manual) 3.0 L Seg Neutrophils # Man 18.2 H Lymphocytes # (Manual) 0.6 L PT INR D-Dimer Heparin Anti-Xa Level POC ABG pH POC ABG pCO2 POC ABG pO2 Potassium 2.9 L* Chloride 93.8 L Carbon Dioxide BUN 54 H Creatinine 3.8 H Glucose 144 H Lactic Acid Calcium 7.2 L Phosphorus 5.30 H Magnesium Total Bilirubin Direct Bilirubin AST Total Creatine Kinase CK-MB (CK-2) Troponin T NT-Pro-B Natriuret Pep Albumin HDL Cholesterol PTH Intact 85.36 H Urine WBC (Auto) Urine Creatinine 07/17/19 07/17/19 07/17/19 05:15 05:15 07:27 WBC MCV MCH RDW Seg Neuts % (Manual) Lymphocytes % (Manual) Seg Neutrophils # Man Lymphocytes # (Manual) PT INR D-Dimer Heparin Anti-Xa Level 0.14 L POC ABG pH POC ABG pCO2 POC ABG pO2 Potassium Chloride Carbon Dioxide BUN Creatinine Glucose Lactic Acid 3.50 H* 3.10 H* Calcium Phosphorus Magnesium Total Bilirubin Direct Bilirubin AST Total Creatine Kinase CK-MB (CK-2) Troponin T NT-Pro-B Natriuret Pep Albumin HDL Cholesterol PTH Intact Urine WBC (Auto) Urine Creatinine 07/17/19 07/18/19 07/19/19 15:08 05:01 09:16 WBC 21.7 H MCV 80 L MCH 26 L RDW 15.9 H Seg Neuts % (Manual) Lymphocytes % (Manual) Seg Neutrophils # Man Lymphocytes # (Manual) PT INR D-Dimer Heparin Anti-Xa Level POC ABG pH POC ABG pCO2 POC ABG pO2 Potassium 2.9 L* 3.2 L Chloride Carbon Dioxide 21 L BUN 64 H Creatinine 2.0 H Glucose 188 H Lactic Acid Calcium 7.3 L Phosphorus Magnesium 1.60 L Total Bilirubin Direct Bilirubin AST Total Creatine Kinase 1098 H CK-MB (CK-2) Troponin T NT-Pro-B Natriuret Pep Albumin HDL Cholesterol PTH Intact Urine WBC (Auto) Urine Creatinine 07/19/19 07/19/19 09:16 09:16 WBC MCV MCH RDW Seg Neuts % (Manual) Lymphocytes % (Manual) Seg Neutrophils # Man Lymphocytes # (Manual) PT INR D-Dimer Heparin Anti-Xa Level POC ABG pH POC ABG pCO2 POC ABG pO2 Potassium 3.0 L Chloride Carbon Dioxide BUN 40 H Creatinine Glucose 154 H Lactic Acid Calcium 7.9 L Phosphorus Magnesium Total Bilirubin Direct Bilirubin AST Total Creatine Kinase 483 H CK-MB (CK-2) Troponin T NT-Pro-B Natriuret Pep Albumin HDL Cholesterol PTH Intact Urine WBC (Auto) Urine Creatinine
--- NOTE | 2019-07-19 20:24 | Progress Note ---
Assessment and Plan Patient is 48-year-old -[place] man with a history of hypertension who presents to [facility] ED via EMS with severe SOB and cough. He was placed on Bipap because pO2 was only 56 on 1005 oxygen and admitted to IMCU. * pCXR Impressions: 1. Extensive opacity of right lung * CT Chest without contrast: Impression: 1. Extensive right-sided pneumonia * V/Q Scan Impression: The exam is criteria for intermediate probability for pulmonary embolism due to the large ventilation perfusion defect with associated chest x-ray abnormality. No discrete suspicious perfusion abnormality is seen. * Renal US Impression no acute sonographic abnormality of the kidneys. Sepsis -Secondary to pneumonia -Leukocytosis 17.5, went up due to iv steroids, will stop steroids -Tachycardia 120's-130's -T-max 100.1 -Lactic acid 6.40 -treated with IVF and IV abx Pneumonia right sided suspected Aspiration (the report doesn't mention specific location in the right lung and there is no camera icon in [employer] EMR to actual ly see the film) -CXR and CT Chest shows Extensive opacity of right lung -Cultures pending -Start on IV Abx Acute hypoxic respiratory failure -No Baseline home oxygen requirements -Currently on supplemental -Initial ABG done on 100% FiO2: 7.49/35/56/26 -Repeat ABG done on RA 7.49/30 8/24.8 -Monitor saturations -Continue supplemental oxygen, wean as tolerated Ruled out Pulmonary Embolism -D-dimer elevated 630.53 -VQ scan shows intermediate probability for PE -Initiated heparin protocol but stopped, venous leg doppler negative d/w Dr. Mitchell -Stopped heparin drip -Pulmonary consulted, input noted Acute kidney injury, vasomotor nephropathy -Cr on admission 4.2 -??CKD with GFR 18 -Gentle hydration with IVF -Avoid nephrotoxic agents -Renal dose all meds -Nephrology consulted Hypokalemia and hypomagnesemia -replete Magnesium via IV, recheck in am -Potassium 3.0 -Received potassium replacement -Continue to monitor and replete prn Obesity -BMI 38.7kg -Diet and lifestyle modifications -May benefit from OP weight mgmt program DVT PPX -sq heparin -SCD's Disposition: continue inpatient care, wean off O2 as tolerated, renal function improving await for plateau prior to discharge, supplement potassium, anticipate d/c in 1-2 days Subjective Date of service: 07/19/19 Principal diagnosis: sepsis, aspiration pneumonia, acute hypoxemic respiratory failure Interval history: Patient seen and examined. Sitting out of bed. She is on oxygen. Short of breath. Objective - Constitutional Vitals: Vital Signs - 12hr 07/19/19 07/19/19 07/19/19 10:00 10:59 11:27 Temperature 98.5 F Pulse Rate 86 76 84 Pulse Rate [ Anterior Bilateral Throughout] Respiratory 24 22 Rate Respiratory Rate [Anterior Bilateral Throughout] Blood Pressure 135/87 145/95 O2 Sat by Pulse 95 95 Oximetry 07/19/19 07/19/19 14:45 18:03 Temperature 99.7 F H Pulse Rate 88 Pulse Rate [ 85 Anterior Bilateral Throughout] Respiratory 22 Rate Respiratory 22 Rate [Anterior Bilateral Throughout] Blood Pressure 126/79 O2 Sat by Pulse 91 Oximetry General appearance: Present: no acute distress, well-nourished - EENT Eyes: PERRL, EOM intact Ears: bilateral: normal - Neck Neck: supple, normal ROM - Respiratory Respiratory effort: normal Respiratory: bilateral: diminished - Cardiovascular Rhythm: regular Heart Sounds: Present: S1 & S2. Absent: gallop, rub Extremities: pulses intact, No edema, normal color, Full ROM - Gastrointestinal General gastrointestinal: Present: soft, non-tender, non-distended, normal bowel sounds - Integumentary Integumentary: clear, warm, dry - Musculoskeletal Musculoskeletal: 1, strength equal bilaterally - Neurologic Neurologic: moves all extremities - Psychiatric Psychiatric: memory intact, appropriate mood/affect, intact judgment & insight - Labs CBC & Chem 7: 07/19/19 09:16 07/19/19 09:16 Labs: Abnormal lab results 07/19/19 07/19/19 07/19/19 Range/Units 09:16 09:16 09:16 WBC 21.7 H (4.5-11.0) K/mm3 MCV 80 L (84-94) fl MCH 26 L (28-32) pg RDW 15.9 H (13.2-15.2) % POC ABG pH (7.35-7.45) POC ABG pO2 (80-105) Potassium 3.0 L (3.6-5.0) mmol/L BUN 40 H (9-20) mg/dL Glucose 154 H (75-100) mg/dL Calcium 7.9 L (8.4-10.2) mg/dL Total Creatine Kinase 483 H (55-170) units/L 07/19/19 Range/Units 14:51 WBC (4.5-11.0) K/mm3 MCV (84-94) fl MCH (28-32) pg RDW (13.2-15.2) % POC ABG pH 7.476 H (7.35-7.45) POC ABG pO2 55 L (80-105) Potassium (3.6-5.0) mmol/L BUN (9-20) mg/dL Glucose (75-100) mg/dL Calcium (8.4-10.2) mg/dL Total Creatine Kinase (55-170) units/L
[2019-07-19] MEDS ORDERED: POTASSIUM CHLORIDE ER 20 MEQ TAB PO ONE (20:25)
[2019-07-20] MEDS: BENZONATATE 100 MG CAP PO SCH ×2 (06:04→13:42)
[2019-07-20 09:06] LABS: BUN/Creatinine Ratio 24; Blood Urea Nitrogen 24 mg/dL (9-20); Calcium 8.3 mg/dL (8.4-10.2); Hemolysis Index 271
[2019-07-20] MEDS: FAMOTIDINE 20 MG TAB PO SCH ×2 (09:50→21:44)
[2019-07-20] MEDS: amLODIPine 10 MG TAB PO SCH (09:50)
[2019-07-20] MEDS: DOCUSATE SODIUM 100 MG CAP PO SCH ×2 (09:50→21:44)
[2019-07-20] MEDS: HEPARIN 5,000 UNIT/1 ML VIAL SUB-Q SCH ×2 (09:51→21:44)
[2019-07-20] MEDS: SODIUM CHLORIDE 0.9% 1000 ML 1,000 ML IV SCH ×2 (09:57→21:45)
[2019-07-20] MEDS: cefTRIAXone/NS 2 GM/100 ML 2 GM/100 ML BAG IV SCH (10:00)
--- NOTE | 2019-07-20 11:31 | Progress Note ---
Assessment and Plan Patient alert, awake, resting on 3 litres O2. with O2 saturation of 95%. No complaint of chest pain, SOB, or cough. Patient says breathing better.No acute respiratory distress. Patients ABGs on room air reported PO2 55. Recommend Home O2 2 litres via nasal canula. - Patient Problems (1) Acute respiratory distress Current Visit: Yes Status: Acute Plan to address problem: Patients ABGs on room air reported PO2 55. Recommend Home O2 2 litres via nasal canula. (2) Elevated troponin Current Visit: Yes Status: Acute Plan to address problem: management as per cardiology (3) Lactic acidosis Current Visit: Yes Status: Acute Plan to address problem: Improved. Patients ABGs PH 7.47 , PO2 55, PCO2 40 , HCO3 29. O2 saturation 90% on room air. (4) Pneumonia Current Visit: Yes Status: Acute Qualifiers: Pneumonia type: due to unspecified organism Laterality: right Lung location: unspecified part of lung Qualified Code(s): J18.9 - Pneumonia, unspecified organism Plan to address problem: Patient is on Ceftriaxone and Azithromax (5) Renal failure Current Visit: Yes Status: Acute Qualifiers: Renal failure chronicity: acute Acute renal failure type: unspecified Qualified Code(s): N17.9 - Acute kidney failure, unspecified Plan to address problem: Management as per nephrology (6) Sepsis Current Visit: Yes Status: Acute Qualifiers: Sepsis type: sepsis due to unspecified organism Sepsis acute organ dysfunction status: unspecified Qualified Code(s): A41.9 - Sepsis, unspecified organism Plan to address problem: Patient is on Ceftriaxone and Azithromax Subjective Date of service: 07/20/19 Principal diagnosis: sepsis, aspiration pneumonia, acute hypoxemic respiratory failure Interval history: Patient alert, awake, resting on 3 litres O2. with O2 saturation of 95%. No complaint of chest pain, SOB, or cough. Patient says breathing better.No acute respiratory distress. Patients ABGs on room air reported PO2 55. Recommend Home O2 2 litres via nasal canula. Objective Vital Signs - 12hr 07/20/19 07/20/19 07/20/19 00:00 06:05 08:23 Temperature 99.7 F H 98.7 F Pulse Rate 82 76 Respiratory 20 18 Rate Blood Pressure 146/95 138/84 O2 Sat by Pulse 90 93 93 Oximetry 07/20/19 07/20/19 08:53 09:50 Temperature Pulse Rate 74 Respiratory 18 Rate Blood Pressure 130/77 O2 Sat by Pulse Oximetry Constitutional: no acute distress, alert, other (obese) Eyes: non-icteric ENT: oropharynx moist Neck: supple Effort: normal Ascultation: Bilateral: diminished breath sounds (bases), rales, rhonchi Cardiovascular: regular rate and rhythm Gastrointestinal: normoactive bowel sounds, soft Integumentary: normal Extremities: no cyanosis, no edema Neurologic: normal mental status, non-focal exam, pupils equal and round Psychiatric: mood appropriate, affect normal CBC and BMP: 07/19/19 09:16 07/20/19 07:51 ABG, PT/INR, D-dimer: ABG POC ABG pH 7.476 (7.35-7.45) H 07/19/19 14:51 POC ABG pCO2 39.6 (35-45) 07/19/19 14:51 POC ABG pO2 55 (80-105) L 07/19/19 14:51 POC ABG HCO3 29.3 (22-26 mml/L) 07/19/19 14:51 POC ABG Total CO2 30 (23-27mmol/L) 07/19/19 14:51 POC ABG O2 Sat 90 07/19/19 14:51 PT/INR, D-dimer PT 19.9 Sec. (12.2-14.9) H 07/16/19 18:05 INR 1.66 (0.87-1.13) H 07/16/19 18:05 D-Dimer 630.53 ng/mlDDU (0-234) H 07/16/19 18:05 Abnormal lab findings: Abnormal Labs 07/16/19 07/16/19 07/16/19 17:55 18:00 18:05 WBC 17.2 H 17.5 H MCV 79 L 79 L MCH 27 L 26 L RDW 15.4 H 15.4 H Seg Neuts % (Manual) Lymphocytes % (Manual) 9.0 L Seg Neutrophils # Man 12.0 H Lymphocytes # (Manual) PT INR D-Dimer Heparin Anti-Xa Level POC ABG pH POC ABG pCO2 POC ABG pO2 Potassium Chloride Carbon Dioxide BUN Creatinine Glucose Lactic Acid Calcium Phosphorus Magnesium Total Bilirubin 1.80 H Direct Bilirubin 0.9 H AST 59 H Total Creatine Kinase CK-MB (CK-2) Troponin T 0.039 H NT-Pro-B Natriuret Pep 21102 H Albumin 3.3 L HDL Cholesterol 39 L PTH Intact Urine WBC (Auto) Urine Creatinine 07/16/19 07/16/19 07/16/19 18:05 18:05 18:53 WBC MCV MCH RDW Seg Neuts % (Manual) Lymphocytes % (Manual) Seg Neutrophils # Man Lymphocytes # (Manual) PT 19.9 H INR 1.66 H D-Dimer 630.53 H Heparin Anti-Xa Level POC ABG pH 7.492 H POC ABG pCO2 POC ABG pO2 56 L Potassium 2.8 L* Chloride 88.8 L Carbon Dioxide BUN 44 H Creatinine 4.2 H Glucose 165 H Lactic Acid Calcium 8.0 L Phosphorus Magnesium Total Bilirubin Direct Bilirubin AST Total Creatine Kinase CK-MB (CK-2) Troponin T NT-Pro-B Natriuret Pep Albumin HDL Cholesterol PTH Intact Urine WBC (Auto) Urine Creatinine 07/16/19 07/16/19 07/16/19 21:50 21:50 21:52 WBC MCV MCH RDW Seg Neuts % (Manual) Lymphocytes % (Manual) Seg Neutrophils # Man Lymphocytes # (Manual) PT INR D-Dimer Heparin Anti-Xa Level POC ABG pH POC ABG pCO2 POC ABG pO2 Potassium Chloride Carbon Dioxide BUN Creatinine Glucose Lactic Acid 6.40 H* Calcium Phosphorus Magnesium Total Bilirubin Direct Bilirubin AST Total Creatine Kinase CK-MB (CK-2) Troponin T NT-Pro-B Natriuret Pep Albumin HDL Cholesterol PTH Intact Urine WBC (Auto) 8.0 H Urine Creatinine 327.2 H 07/16/19 07/17/19 07/17/19 23:25 02:53 03:00 WBC MCV MCH RDW Seg Neuts % (Manual) Lymphocytes % (Manual) Seg Neutrophils # Man Lymphocytes # (Manual) PT INR D-Dimer Heparin Anti-Xa Level POC ABG pH 7.498 H POC ABG pCO2 31.9 L POC ABG pO2 Potassium Chloride Carbon Dioxide BUN Creatinine Glucose Lactic Acid 4.00 H* Calcium Phosphorus Magnesium Total Bilirubin Direct Bilirubin AST Total Creatine Kinase 1776 H CK-MB (CK-2) 6.5 H Troponin T NT-Pro-B Natriuret Pep Albumin HDL Cholesterol PTH Intact Urine WBC (Auto) Urine Creatinine 07/17/19 07/17/19 07/17/19 03:00 03:00 03:00 WBC 19.6 H MCV 79 L MCH 26 L RDW 15.3 H Seg Neuts % (Manual) 93.0 H Lymphocytes % (Manual) 3.0 L Seg Neutrophils # Man 18.2 H Lymphocytes # (Manual) 0.6 L PT INR D-Dimer Heparin Anti-Xa Level POC ABG pH POC ABG pCO2 POC ABG pO2 Potassium 2.9 L* Chloride 93.8 L Carbon Dioxide BUN 54 H Creatinine 3.8 H Glucose 144 H Lactic Acid Calcium 7.2 L Phosphorus 5.30 H Magnesium Total Bilirubin Direct Bilirubin AST Total Creatine Kinase CK-MB (CK-2) Troponin T NT-Pro-B Natriuret Pep Albumin HDL Cholesterol PTH Intact 85.36 H Urine WBC (Auto) Urine Creatinine 07/17/19 07/17/19 07/17/19 05:15 05:15 07:27 WBC MCV MCH RDW Seg Neuts % (Manual) Lymphocytes % (Manual) Seg Neutrophils # Man Lymphocytes # (Manual) PT INR D-Dimer Heparin Anti-Xa Level 0.14 L POC ABG pH POC ABG pCO2 POC ABG pO2 Potassium Chloride Carbon Dioxide BUN Creatinine Glucose Lactic Acid 3.50 H* 3.10 H* Calcium Phosphorus Magnesium Total Bilirubin Direct Bilirubin AST Total Creatine Kinase CK-MB (CK-2) Troponin T NT-Pro-B Natriuret Pep Albumin HDL Cholesterol PTH Intact Urine WBC (Auto) Urine Creatinine 07/17/19 07/18/19 07/19/19 15:08 05:01 09:16 WBC 21.7 H MCV 80 L MCH 26 L RDW 15.9 H Seg Neuts % (Manual) Lymphocytes % (Manual) Seg Neutrophils # Man Lymphocytes # (Manual) PT INR D-Dimer Heparin Anti-Xa Level POC ABG pH POC ABG pCO2 POC ABG pO2 Potassium 2.9 L* 3.2 L Chloride Carbon Dioxide 21 L BUN 64 H Creatinine 2.0 H Glucose 188 H Lactic Acid Calcium 7.3 L Phosphorus Magnesium 1.60 L Total Bilirubin Direct Bilirubin AST Total Creatine Kinase 1098 H CK-MB (CK-2) Troponin T NT-Pro-B Natriuret Pep Albumin HDL Cholesterol PTH Intact Urine WBC (Auto) Urine Creatinine 07/19/19 07/19/19 07/19/19 09:16 09:16 14:51 WBC MCV MCH RDW Seg Neuts % (Manual) Lymphocytes % (Manual) Seg Neutrophils # Man Lymphocytes # (Manual) PT INR D-Dimer Heparin Anti-Xa Level POC ABG pH 7.476 H POC ABG pCO2 POC ABG pO2 55 L Potassium 3.0 L Chloride Carbon Dioxide BUN 40 H Creatinine Glucose 154 H Lactic Acid Calcium 7.9 L Phosphorus Magnesium Total Bilirubin Direct Bilirubin AST Total Creatine Kinase 483 H CK-MB (CK-2) Troponin T NT-Pro-B Natriuret Pep Albumin HDL Cholesterol PTH Intact Urine WBC (Auto) Urine Creatinine 07/20/19 07:51 WBC MCV MCH RDW Seg Neuts % (Manual) Lymphocytes % (Manual) Seg Neutrophils # Man Lymphocytes # (Manual) PT INR D-Dimer Heparin Anti-Xa Level POC ABG pH POC ABG pCO2 POC ABG pO2 Potassium Chloride Carbon Dioxide BUN 24 H Creatinine Glucose 126 H Lactic Acid Calcium 8.3 L Phosphorus Magnesium Total Bilirubin Direct Bilirubin AST Total Creatine Kinase CK-MB (CK-2) Troponin T NT-Pro-B Natriuret Pep Albumin HDL Cholesterol PTH Intact Urine WBC (Auto) Urine Creatinine
--- NOTE | 2019-07-20 12:51 | Progress Note ---
Assessment and Plan Assessment and plan: Patient is 48-year-old -Prydeinig man with a history of hypertension who presents to [facility] ED via EMS with severe SOB and cough. He was placed on Bipap because pO2 was only 56 on 1005 oxygen and admitted to IMCU. * pCXR Impressions: 1. Extensive opacity of right lung * CT Chest without contrast: Impression: 1. Extensive right-sided pneumonia * V/Q Scan Impression: The exam is criteria for intermediate probability for pulmonary embolism due to the large ventilation perfusion defect with associated chest x-ray abnormality. No discrete suspicious perfusion abnormality is seen. * Renal US Impression no acute sonographic abnormality of the kidneys. Sepsis -Clinically improving. No further fever noted. Secondary to pneumonia -Leukocytosis 17.5, went up due to iv steroids, will stop steroids -Tachycardia 120's-130's -T-max 100.1 -Lactic acid 6.40 -treated with IVF and IV abx Pneumonia right sided suspected Aspiration (the report doesn't mention specific location in the right lung and there is no camera icon in [employer] EMR to actually see the film) -CXR and CT Chest shows Extensive opacity of right lung -Cultures pending -continue empiric IV antibiotics. Acute hypoxic respiratory failure -No Baseline home oxygen requirements,. Continue to wean oxygen discussed with pulmonary anticipate discharge in 24 to 48 hours. -Currently on supplemental -Initial ABG done on 100% FiO2: 7.49/35/56/26 -Repeat ABG done on RA 7.49/30 140 8/24.8 -Monitor saturations -Continue supplemental oxygen, wean as tolerated Ruled out Pulmonary Embolism -D-dimer elevated 630.53 -VQ scan shows intermediate probability for PE -Initially was treated with heparin protocol but this was subsequently discon tinued. Acute kidney injury, vasomotor nephropathy now resolved -Cr on admission 4.2 -??CKD with GFR 18 -Gentle hydration with IVF -Avoid nephrotoxic agents -Renal dose all meds -Nephrology consulted Hypokalemia and hypomagnesemia -replete Magnesium via IV, recheck in am -Potassium 3.0 -Received potassium replacement -Continue to monitor and replete prn Obesity -BMI 38.7kg -Diet and lifestyle modifications -May benefit from OP weight mgmt program DVT PPX -sq heparin -SCD's Disposition: continue inpatient care, wean off O2 as tolerated, renal function improving await for plateau prior to discharge, supplement potassium, anticipate d/c in the next 1 day. Patient also requested for 1 additional day stay considering that he is still on oxygen and still with exertional dyspnea. History Interval history: Patient seen and examined today still reports some wheezing and shortness of breath but states that he is improving. Not yet at his baseline. No further fever noted. Hospitalist Physical - Physical exam Narrative exam: VITAL SIGNS: Reviewed. GENERAL: The patient appears normally developed, Vital signs as documented. HEAD: No signs of head trauma. EYES: Pupils are equal. Extraocular motions intact. EARS: Hearing grossly intact. MOUTH: Oropharynx is normal. NECK: No adenopathy, no JVD. CHEST: Chest with diminished breath sounds bilaterally. No wheezes, rales, or rhonchi. CARDIAC: Regular rate and rhythm. S1 and S2, without murmurs, gallops, or rubs. VASCULAR: No Edema. Peripheral pulses normal and equal in all extremities. ABDOMEN: Soft, non tender and non distended. No rebound or guarding, and no masses palpated. Bowel Sounds normal. MUSCULOSKELETAL: Good range of motion of all major joints. Extremities without clubbing, cyanosis or edema. NEUROLOGIC EXAM: Alert and oriented x 3 No focal sensory or strength deficits. Speech normal. Follows commands. PSYCHIATRIC: Mood normal. SKIN: detial exam as documented in skin assessment - Constitutional Vitals: Temp Pulse Resp BP Pulse Ox 98.5 F 71 20 128/77 95 07/20/19 11:19 07/20/19 11:19 07/20/19 11:19 07/20/19 11:19 07/20/19 11:19 General appearance: Present: no acute distress, well-nourished Results - Labs CBC & Chem 7: 07/19/19 09:16 07/20/19 07:51 Labs: Laboratory Last Values WBC 21.7 K/mm3 (4.5-11.0) H 07/19/19 09:16 RBC 4.58 M/mm3 (3.65-5.03) 07/19/19 09:16 Hgb 11.8 gm/dl (11.8-15.2) 07/19/19 09:16 Hct 36.7 % (35.5-45.6) 07/19/19 09:16 MCV 80 fl (84-94) L 07/19/19 09:16 MCH 26 pg (28-32) L 07/19/19 09:16 MCHC 32 % (32-34) 07/19/19 09:16 RDW 15.9 % (13.2-15.2) H 07/19/19 09:16 Plt Count 256 K/mm3 (140-440) 07/19/19 09:16 Add Manual Diff Complete 07/17/19 03:00 Total Counted 100 07/17/19 03:00 Seg Neutrophils % [employer] 07/17/19 03:00 Seg Neuts % (Manual) 93.0 % (40.0-70.0) H 07/17/19 03:00 Band Neutrophils % 0 % 07/17/19 03:00 Lymphocytes % (Manual) 3.0 % (13.4-35.0) L 07/17/19 03:00 Reactive Lymphs % (Man) 0 % 07/17/19 03:00 Monocytes % (Manual) 4.0 % (0.0-7.3) 07/17/19 03:00 Eosinophils % (Manual) 0 % (0.0-4.3) 07/17/19 03:00 Basophils % (Manual) 0 % (0.0-1.8) 07/17/19 03:00 Metamyelocytes % 0 % 07/17/19 03:00 Myelocytes % 0 % 07/17/19 03:00 Promyelocytes % 0 % 07/17/19 03:00 Blast Cells % 0 % 07/17/19 03:00 Nucleated RBC % Not Reportable 07/17/19 03:00 Seg Neutrophils # Man 18.2 K/mm3 (1.8-7.7) H 07/17/19 03:00 Band Neutrophils # 0.0 K/mm3 07/17/19 03:00 Lymphocytes # (Manual) 0.6 K/mm3 (1.2-5.4) L 07/17/19 03:00 Abs React Lymphs (Man) 0.0 K/mm3 07/17/19 03:00 Monocytes # (Manual) 0.8 K/mm3 (0.0-0.8) 07/17/19 03:00 Eosinophils # (Manual) 0.0 K/mm3 (0.0-0.4) 07/17/19 03:00 Basophils # (Manual) 0.0 K/mm3 (0.0-0.1) 07/17/19 03:00 Metamyelocytes # 0.0 K/mm3 07/17/19 03:00 Myelocytes # 0.0 K/mm3 07/17/19 03:00 Promyelocytes # 0.0 K/mm3 07/17/19 03:00 Blast Cells # 0.0 K/mm3 07/17/19 03:00 WBC Morphology Not Reportable 07/17/19 03:00 Hypersegmented Neuts Not Reportable 07/17/19 03:00 Hyposegmented Neuts Not Reportable 07/17/19 03:00 Hypogranular Neuts Not Reportable 07/17/19 03:00 Smudge Cells Not Reportable 07/17/19 03:00 Toxic Granulation Not Reportable 07/17/19 03:00 Toxic Vacuolation Not Reportable 07/17/19 03:00 Dohle Bodies Not Reportable 07/17/19 03:00 Pelger-Huet Anomaly Not Reportable 07/17/19 03:00 Tha Rods Not Reportable 07/17/19 03:00 Platelet Estimate Consistent w auto 07/17/19 03:00 Clumped Platelets Not Reportable 07/17/19 03:00 Plt Clumps, EDTA Not Reportable 07/17/19 03:00 Large Platelets Not Reportable 07/17/19 03:00 Giant Platelets Not Reportable 07/17/19 03:00 Platelet Satelliting Not Reportable 07/17/19 03:00 Plt Morphology Comment Not Reportable 07/17/19 03:00 RBC Morphology Not Reportable 07/17/19 03:00 Dimorphic RBCs Not Reportable 07/17/19 03:00 Polychromasia Not Reportable 07/17/19 03:00 Hypochromasia 1+ 07/17/19 03:00 Poikilocytosis Not Reportable 07/17/19 03:00 Anisocytosis 1+ 07/17/19 03:00 Microcytosis Not Reportable 07/17/19 03:00 Macrocytosis Not Reportable 07/17/19 03:00 Spherocytes Not Reportable 07/17/19 03:00 Pappenheimer Bodies Not Reportable 07/17/19 03:00 Sickle Cells Not Reportable 07/17/19 03:00 Target Cells Not Reportable 07/17/19 03:00 Tear Drop Cells Not Reportable 07/17/19 03:00 Ovalocytes Not Reportable 07/17/19 03:00 Helmet Cells Not Reportable 07/17/19 03:00 Hernandez-Foristell Bodies Not Reportable 07/17/19 03:00 [place] Rings Not Reportable 07/17/19 03:00 Hector Cells Not Reportable 07/17/19 03:00 Bite Cells Not Reportable 07/17/19 03:00 Crenated Cell Not Reportable 07/17/19 03:00 Elliptocytes Not Reportable 07/17/19 03:00 Acanthocytes (Spur) Not Reportable 07/17/19 03:00 Rouleaux Not Reportable 07/17/19 03:00 Hemoglobin C Crystals Not Reportable 07/17/19 03:00 Schistocytes Not Reportable 07/17/19 03:00 Malaria parasites Not Reportable 07/17/19 03:00 James Bodies Not Reportable 07/17/19 03:00 Hem Pathologist Commnt No 07/17/19 03:00 PT 19.9 Sec. (12.2-14.9) H 07/16/19 18:05 INR 1.66 (0.87-1.13) H 07/16/19 18:05 D-Dimer 630.53 ng/mlDDU (0-234) H 07/16/19 18:05 Heparin Anti-Xa Level 0.14 U.I./ml (0.3-0.7) L 07/17/19 05:15 POC ABG pH 7.476 (7.35-7.45) H 07/19/19 14:51 POC ABG pCO2 39.6 (35-45) 07/19/19 14:51 POC ABG pO2 55 (80-105) L 07/19/19 14:51 POC ABG HCO3 29.3 (22-26 mml/L) 07/19/19 14:51 POC ABG Total CO2 30 (23-27mmol/L) 07/19/19 14:51 POC ABG O2 Sat 90 07/19/19 14:51 POC ABG Base Excess 6 ((-2) - (+3)mmol/L) 07/19/19 14:51 FiO2 21 % 07/19/19 14:51 Sodium 139 mmol/L (137-145) 07/20/19 07:51 Potassium 5.0 mmol/L (3.6-5.0) D 07/20/19 07:51 Chloride 99.2 mmol/L (98-107) 07/20/19 07:51 Carbon Dioxide 26 mmol/L (22-30) 07/20/19 07:51 Anion Gap 19 mmol/L 07/20/19 07:51 BUN 24 mg/dL (9-20) H 07/20/19 07:51 Creatinine 1.0 mg/dL (0.8-1.5) 07/20/19 07:51 Estimated GFR > 60 ml/min 07/20/19 07:51 BUN/Creatinine Ratio 24 % 07/20/19 07:51 Glucose 126 mg/dL (75-100) H 07/20/19 07:51 Lactic Acid 3.10 mmol/L (0.7-2.0) H* 07/17/19 07:27 Calcium 8.3 mg/dL (8.4-10.2) L 07/20/19 07:51 Phosphorus 5.30 mg/dL (2.5-4.5) H 07/17/19 03:00 Magnesium 2.20 mg/dL (1.7-2.3) 07/19/19 09:16 Total Bilirubin 1.80 mg/dL (0.1-1.2) H 07/16/19 17:55 Direct Bilirubin 0.9 mg/dL (0-0.2) H 07/16/19 17:55 Indirect Bilirubin 0.9 mg/dL 07/16/19 17:55 AST 59 units/L (5-40) H 07/16/19 17:55 ALT 26 units/L (7-56) 07/16/19 17:55 Alkaline Phosphatase 68 units/L (35-129) 07/16/19 17:55 Total Creatine Kinase 483 units/L (55-170) H 07/19/19 09:16 CK-MB (CK-2) 6.5 ng/mL (0.0-4.0) H 07/17/19 03:00 CK-MB (CK-2) Rel Index 0.3 (0-4) 07/17/19 03:00 Troponin T 0.027 ng/mL (0.00-0.029) 07/17/19 03:00 NT-Pro-B Natriuret Pep 14048 pg/mL (0-450) H 07/16/19 17:55 Total Protein 7.9 g/dL (6.3-8.2) 07/16/19 17:55 Albumin 3.3 g/dL (3.9-5) L 07/16/19 17:55 Albumin/Globulin Ratio 0.7 % 07/16/19 17:55 Triglycerides 121 mg/dL (2-149) 07/16/19 17:55 Cholesterol 132 mg/dL (50-199) 07/16/19 17:55 LDL Cholesterol Direct 66 mg/dL (50-130) 07/16/19 17:55 HDL Cholesterol 39 mg/dL (40-59) L 07/16/19 17:55 Cholesterol/HDL Ratio 3.38 % 07/16/19 17:55 Procalcitonin 116.75 ng/mL (<0.15) 07/17/19 19:24 PTH Intact 85.36 pg/mL (15-65) H 07/17/19 03:00 Urine Color Ame (Yellow) 07/16/19 21:50 Urine Turbidity Cloudy (Clear) 07/16/19 21:50 Urine pH 5.0 (5.0-7.0) 07/16/19 21:50 Ur Specific [place] 1.017 (1.003-1.030) 07/16/19 21:50 Urine Protein 30 mg/dl mg/dL (Negative) 07/16/19 21:50 Urine Glucose (UA) Neg mg/dL (Negative) 07/16/19 21:50 Urine Ketones Neg mg/dL (Negative) 07/16/19 21:50 Urine Blood Lg (Negative) 07/16/19 21:50 Urine Nitrite Neg (Negative) 07/16/19 21:50 Urine Bilirubin Neg (Negative) 07/16/19 21:50 Urine Urobilinogen < 2.0 mg/dL (<2.0) 07/16/19 21:50 Ur Leukocyte Esterase Neg (Negative) 07/16/19 21:50 Urine WBC (Auto) 8.0 /HPF (0.0-6.0) H 07/16/19 21:50 Urine RBC (Auto) 3.0 /HPF (0.0-6.0) 07/16/19 21:50 Urine Mucus Few /HPF 07/16/19 21:50 Urine Eosinophils None seen (None Seen) 07/16/19 21:50 Urine Creatinine 327.2 mg/dL (0.1-20.0) H 07/16/19 21:50 Urine Sodium 28 mmol/L 07/16/19 21:50 Active Medications - Current Medications Current Medications: Generic Name Dose Route Start Last Admin Trade Name Freq PRN Reason Stop Dose Admin Acetaminophen 650 mg 07/16/19 23:07 Tylenol PO Q4H PRN Pain MILD(1-3)/Fever >100.5/DE LA O Albuterol 2.5 mg 07/16/19 23:07 Proventil IH Q3HRT PRN Shortness Of Breath Amlodipine Besylate 10 mg 07/17/19 10:00 07/20/19 09:50 Amlodipine PO 10 mg DAILY VERN Administration Benzonatate 100 mg 07/17/19 22:00 07/20/19 06:04 Tessalon Perles PO 07/20/19 21:59 100 mg Q8HR VERN Administration Docusate Sodium 100 mg 07/17/19 10:00 07/20/19 09:50 Colace PO 100 mg BID VERN Administration Famotidine 20 mg 07/17/19 16:00 07/20/19 09:50 Pepcid PO 20 mg BID VERN Administration Heparin Sodium (Porcine) 5,000 unit 07/17/19 22:00 07/20/19 09:51 Heparin SUB-Q 5,000 unit Q12HR VERN Administration Azithromycin 500 mg/ Sodium 250 mls @ 250 mls/hr 07/16/19 23:06 07/19/19 22:35 Chloride IV 07/20/19 22:59 250 mls/hr Q24HR@2200 VERN Administration Protocol Ceftriaxone Sodium 2 gm in 100 mls @ 200 mls/hr 07/17/19 10:00 07/20/19 10:00 Rocephin/Ns 2 Gm/100 Ml IV 200 mls/hr Q24HR VERN Administration Protocol Sodium Chloride 1,000 mls @ 100 mls/hr 07/17/19 16:30 07/20/19 09:57 Nacl 0.9% 1000 Ml IV 100 mls/hr DIRECT VERN Administration Ondansetron HCl 4 mg 07/16/19 23:07 Zofran IV Q6H PRN Nausea And Vomiting Sodium Chloride 10 ml 07/17/19 10:00 07/20/19 09:51 Sodium Chloride Flush Syringe 10 Ml IV 10 ml BID VERN Administration Sodium Chloride 10 ml 07/16/19 23:07 Sodium Chloride Flush Syringe 10 Ml IV PRN PRN LINE FLUSH
[2019-07-20] MEDS: AZITHROMYCIN 500 MG in SODIUM CHLORIDE 0.9% 250ML 250 ML IV SCH (21:43)
[2019-07-21] MEDS: SODIUM CHLORIDE 0.9% 1000 ML 1,000 ML IV SCH (06:31)
[2019-07-21] MEDS: cefTRIAXone/NS 2 GM/100 ML 2 GM/100 ML BAG IV SCH (09:42)
[2019-07-21] MEDS: FAMOTIDINE 20 MG TAB PO SCH ×2 (09:42→21:51)
[2019-07-21] MEDS: DOCUSATE SODIUM 100 MG CAP PO SCH ×2 (09:42→21:51)
[2019-07-21] MEDS: HEPARIN 5,000 UNIT/1 ML VIAL SUB-Q SCH ×2 (09:42→21:51)
[2019-07-21] MEDS: amLODIPine 10 MG TAB PO SCH (09:48)
[2019-07-21 11:05] LABS: Hematocrit 33.9 % (35.5-45.6); Hemoglobin 10.9 gm/dl (11.8-15.2); Mean Corpuscular HGB Conc 32 % (32-34); Mean Corpuscular Volume 80 fl (84-94); Platelet Count 237 K/mm3 (140-440); Red Blood Count 4.26 M/mm3 (3.65-5.03); Red Cell Distribution Width 15.4 % (13.2-15.2)
[2019-07-21 11:27] LABS: BUN/Creatinine Ratio 19; Blood Urea Nitrogen 17 mg/dL (9-20); Calcium 8.4 mg/dL (8.4-10.2); Hemolysis Index 3
--- NOTE | 2019-07-21 11:56 | Progress Note ---
Assessment and Plan Patient alert, awake, resting on 3 litres O2. with O2 saturation of 96%. No complaint of chest pain, SOB, or cough. Patient says breathing better. No acute respiratory distress. Patients ABGs on room air 07/19/2019 reported PO2 55. Recommend Home O2 2 litres via nasal canula. Pt is afebrile with leukocytosis, currently on ceftriaxone. - Patient Problems (1) Acute respiratory distress Current Visit: Yes Status: Acute Plan to address problem: Patients ABGs on room air reported PO2 55. Recommend Home O2 2 litres via nasal canula. (2) Elevated troponin Current Visit: Yes Status: Acute Plan to address problem: management as per cardiology (3) Lactic acidosis Current Visit: Yes Status: Acute Plan to address problem: Improved. Patients ABGs PH 7.47 , PO2 55, PCO2 40 , HCO3 29. O2 saturation 96% on 3L O2. (4) Pneumonia Current Visit: Yes Status: Acute Qualifiers: Pneumonia type: due to unspecified organism Laterality: right Lung location: unspecified part of lung Qualified Code(s): J18.9 - Pneumonia, unspecified organism Plan to address problem: Patient is on Ceftriaxone (5) Renal failure Current Visit: Yes Status: Acute Qualifiers: Renal failure chronicity: acute Acute renal failure type: unspecified Qualified Code(s): N17.9 - Acute kidney failure, unspecified Plan to address problem: Management as per nephrology (6) Sepsis Current Visit: Yes Status: Acute Qualifiers: Sepsis type: sepsis due to unspecified organism Sepsis acute organ dysfunction status: unspecified Qualified Code(s): A41.9 - Sepsis, unspecified organism Plan to address problem: Patient is on Ceftriaxone Subjective Date of service: 07/21/19 Principal diagnosis: sepsis, aspiration pneumonia, acute hypoxemic respiratory failure Interval history: Patient alert, awake, resting on 3 litres O2. with O2 saturation of 96%. No complaint of chest pain, SOB, or cough. Patient says breathing better. No acute respiratory distress. Patients ABGs on room air 07/19/2019 reported PO2 55. Aldo mmend Home O2 2 litres via nasal canula. Pt is afebrile with leukocytosis, currently on ceftriaxone. Objective - Exam Narrative Exam: VITAL SIGNS: Reviewed. GENERAL: The patient appears normally developed, Vital signs as documented. HEAD: No signs of head trauma. EYES: Pupils are equal. Extraocular motions intact. EARS: Hearing grossly intact. MOUTH: Oropharynx is normal. NECK: No adenopathy, no JVD. CHEST: Chest with diminished breath sounds bilaterally. No wheezes, rales, or rhonchi. CARDIAC: Regular rate and rhythm. S1 and S2, without murmurs, gallops, or rubs. VASCULAR: No Edema. Peripheral pulses normal and equal in all extremities. ABDOMEN: Soft, non tender and non distended. No rebound or guarding, and no masses palpated. Bowel Sounds normal. MUSCULOSKELETAL: Good range of motion of all major joints. Extremities without clubbing, cyanosis or edema. NEUROLOGIC EXAM: Alert and oriented x 3 No focal sensory or strength deficits. Speech normal. Follows commands. PSYCHIATRIC: Mood normal. SKIN: detial exam as documented in skin assessment Vital Signs - 12hr 07/21/19 07/21/19 07/21/19 00:38 06:01 09:48 Temperature 99.9 F H 98.7 F Pulse Rate 87 81 80 Respiratory 20 18 Rate Blood Pressure 155/87 149/84 130/80 O2 Sat by Pulse 96 93 Oximetry Constitutional: no acute distress, alert, other (obese) Eyes: non-icteric ENT: oropharynx moist Neck: supple Effort: normal Ascultation: Bilateral: diminished breath sounds (bases), rales, rhonchi Cardiovascular: regular rate and rhythm Gastrointestinal: normoactive bowel sounds, soft Integumentary: normal Extremities: no cyanosis, no edema Neurologic: normal mental status, non-focal exam, pupils equal and round Psychiatric: mood appropriate, affect normal CBC and BMP: 07/21/19 10:39 07/21/19 10:39 ABG, PT/INR, D-dimer: ABG POC ABG pH 7.476 (7.35-7.45) H 07/19/19 14:51 POC ABG pCO2 39.6 (35-45) 07/19/19 14:51 POC ABG pO2 55 (80-105) L 07/19/19 14:51 POC ABG HCO3 29.3 (22-26 mml/L) 07/19/19 14:51 POC ABG Total CO2 30 (23-27mmol/L) 07/19/19 14:51 POC ABG O2 Sat 90 07/19/19 14:51 PT/INR, D-dimer PT 19.9 Sec. (12.2-14.9) H 07/16/19 18:05 INR 1.66 (0.87-1.13) H 07/16/19 18:05 D-Dimer 630.53 ng/mlDDU (0-234) H 07/16/19 18:05 Abnormal lab findings: Abnormal Labs 07/16/19 07/16/19 07/16/19 17:55 18:00 18:05 WBC 17.2 H 17.5 H Hgb Hct MCV 79 L 79 L MCH 27 L 26 L RDW 15.4 H 15.4 H Seg Neuts % (Manual) Lymphocytes % (Manual) 9.0 L Seg Neutrophils # Man 12.0 H Lymphocytes # (Manual) PT INR D-Dimer Heparin Anti-Xa Level POC ABG pH POC ABG pCO2 POC ABG pO2 Potassium Chloride Carbon Dioxide BUN Creatinine Glucose Lactic Acid Calcium Phosphorus Magnesium Total Bilirubin 1.80 H Direct Bilirubin 0.9 H AST 59 H Total Creatine Kinase CK-MB (CK-2) Troponin T 0.039 H NT-Pro-B Natriuret Pep 37311 H Albumin 3.3 L HDL Cholesterol 39 L PTH Intact Urine WBC (Auto) Urine Creatinine 07/16/19 07/16/19 07/16/19 18:05 18:05 18:53 WBC Hgb Hct MCV MCH RDW Seg Neuts % (Manual) Lymphocytes % (Manual) Seg Neutrophils # Man Lymphocytes # (Manual) PT 19.9 H INR 1.66 H D-Dimer 630.53 H Heparin Anti-Xa Level POC ABG pH 7.492 H POC ABG pCO2 POC ABG pO2 56 L Potassium 2.8 L* Chloride 88.8 L Carbon Dioxide BUN 44 H Creatinine 4.2 H Glucose 165 H Lactic Acid Calcium 8.0 L Phosphorus Magnesium Total Bilirubin Direct Bilirubin AST Total Creatine Kinase CK-MB (CK-2) Troponin T NT-Pro-B Natriuret Pep Albumin HDL Cholesterol PTH Intact Urine WBC (Auto) Urine Creatinine 07/16/19 07/16/19 07/16/19 21:50 21:50 21:52 WBC Hgb Hct MCV MCH RDW Seg Neuts % (Manual) Lymphocytes % (Manual) Seg Neutrophils # Man Lymphocytes # (Manual) PT INR D-Dimer Heparin Anti-Xa Level POC ABG pH POC ABG pCO2 POC ABG pO2 Potassium Chloride Carbon Dioxide BUN Creatinine Glucose Lactic Acid 6.40 H* Calcium Phosphorus Magnesium Total Bilirubin Direct Bilirubin AST Total Creatine Kinase CK-MB (CK-2) Troponin T NT-Pro-B Natriuret Pep Albumin HDL Cholesterol PTH Intact Urine WBC (Auto) 8.0 H Urine Creatinine 327.2 H 07/16/19 07/17/19 07/17/19 23:25 02:53 03:00 WBC Hgb Hct MCV MCH RDW Seg Neuts % (Manual) Lymphocytes % (Manual) Seg Neutrophils # Man Lymphocytes # (Manual) PT INR D-Dimer Heparin Anti-Xa Level POC ABG pH 7.498 H POC ABG pCO2 31.9 L POC ABG pO2 Potassium Chloride Carbon Dioxide BUN Creatinine Glucose Lactic Acid 4.00 H* Calcium Phosphorus Magnesium Total Bilirubin Direct Bilirubin AST Total Creatine Kinase 1776 H CK-MB (CK-2) 6.5 H Troponin T NT-Pro-B Natriuret Pep Albumin HDL Cholesterol PTH Intact Urine WBC (Auto) Urine Creatinine 07/17/19 07/17/19 07/17/19 03:00 03:00 03:00 WBC 19.6 H Hgb Hct MCV 79 L MCH 26 L RDW 15.3 H Seg Neuts % (Manual) 93.0 H Lymphocytes % (Manual) 3.0 L Seg Neutrophils # Man 18.2 H Lymphocytes # (Manual) 0.6 L PT INR D-Dimer Heparin Anti-Xa Level POC ABG pH POC ABG pCO2 POC ABG pO2 Potassium 2.9 L* Chloride 93.8 L Carbon Dioxide BUN 54 H Creatinine 3.8 H Glucose 144 H Lactic Acid Calcium 7.2 L Phosphorus 5.30 H Magnesium Total Bilirubin Direct Bilirubin AST Total Creatine Kinase CK-MB (CK-2) Troponin T NT-Pro-B Natriuret Pep Albumin HDL Cholesterol PTH Intact 85.36 H Urine WBC (Auto) Urine Creatinine 07/17/19 07/17/19 07/17/19 05:15 05:15 07:27 WBC Hgb Hct MCV MCH RDW Seg Neuts % (Manual) Lymphocytes % (Manual) Seg Neutrophils # Man Lymphocytes # (Manual) PT INR D-Dimer Heparin Anti-Xa Level 0.14 L POC ABG pH POC ABG pCO2 POC ABG pO2 Potassium Chloride Carbon Dioxide BUN Creatinine Glucose Lactic Acid 3.50 H* 3.10 H* Calcium Phosphorus Magnesium Total Bilirubin Direct Bilirubin AST Total Creatine Kinase CK-MB (CK-2) Troponin T NT-Pro-B Natriuret Pep Albumin HDL Cholesterol PTH Intact Urine WBC (Auto) Urine Creatinine 07/17/19 07/18/19 07/19/19 15:08 05:01 09:16 WBC 21.7 H Hgb Hct MCV 80 L MCH 26 L RDW 15.9 H Seg Neuts % (Manual) Lymphocytes % (Manual) Seg Neutrophils # Man Lymphocytes # (Manual) PT INR D-Dimer Heparin Anti-Xa Level POC ABG pH POC ABG pCO2 POC ABG pO2 Potassium 2.9 L* 3.2 L Chloride Carbon Dioxide 21 L BUN 64 H Creatinine 2.0 H Glucose 188 H Lactic Acid Calcium 7.3 L Phosphorus Magnesium 1.60 L Total Bilirubin Direct Bilirubin AST Total Creatine Kinase 1098 H CK-MB (CK-2) Troponin T NT-Pro-B Natriuret Pep Albumin HDL Cholesterol PTH Intact Urine WBC (Auto) Urine Creatinine 07/19/19 07/19/19 07/19/19 09:16 09:16 14:51 WBC Hgb Hct MCV MCH RDW Seg Neuts % (Manual) Lymphocytes % (Manual) Seg Neutrophils # Man Lymphocytes # (Manual) PT INR D-Dimer Heparin Anti-Xa Level POC ABG pH 7.476 H POC ABG pCO2 POC ABG pO2 55 L Potassium 3.0 L Chloride Carbon Dioxide BUN 40 H Creatinine Glucose 154 H Lactic Acid Calcium 7.9 L Phosphorus Magnesium Total Bilirubin Direct Bilirubin AST Total Creatine Kinase 483 H CK-MB (CK-2) Troponin T NT-Pro-B Natriuret Pep Albumin HDL Cholesterol PTH Intact Urine WBC (Auto) Urine Creatinine 07/20/19 07/21/19 07/21/19 07:51 10:39 10:39 WBC 19.0 H Hgb 10.9 L Hct 33.9 L MCV 80 L MCH 26 L RDW 15.4 H Seg Neuts % (Manual) Lymphocytes % (Manual) Seg Neutrophils # Man Lymphocytes # (Manual) PT INR D-Dimer Heparin Anti-Xa Level POC ABG pH POC ABG pCO2 POC ABG pO2 Potassium 3.0 L D Chloride 97.9 L Carbon Dioxide BUN 24 H Creatinine Glucose 126 H 125 H Lactic Acid Calcium 8.3 L Phosphorus Magnesium Total Bilirubin Direct Bilirubin AST Total Creatine Kinase CK-MB (CK-2) Troponin T NT-Pro-B Natriuret Pep Albumin HDL Cholesterol PTH Intact Urine WBC (Auto) Urine Creatinine
--- NOTE | 2019-07-21 17:57 | Progress Note ---
Assessment and Plan Assessment and plan: Patient is 48-year-old -[place]ish man with a history of hypertension who presents to [facility] ED via EMS with severe SOB and cough. He was placed on Bipap because pO2 was only 56 on 1005 oxygen and admitted to IMCU. * pCXR Impressions: 1. Extensive opacity of right lung * CT Chest without contrast: Impression: 1. Extensive right-sided pneumonia * V/Q Scan Impression: The exam is criteria for intermediate probability for pulmonary embolism due to the large ventilation perfusion defect with associated chest x-ray abnormality. No discrete suspicious perfusion abnormality is seen. * Renal US Impression no acute sonographic abnormality of the kidneys. Sepsis -Secondary to pneumonia -Leukocytosis 17.5, went up due to iv steroids, will stop steroids -Tachycardia 120's-130's -T-max 100.1 -Lactic acid 6.40 -treated with IVF and IV abx Pneumonia right sided suspected Aspiration (the report doesn't mention specific location in the right lung and there is no camera icon in [employer] EMR to actually see the film) -CXR and CT Chest shows Extensive opacity of right lung -Cultures pending -Start on IV Abx Acute hypoxic respiratory failure -No Baseline home oxygen requirements -Currently on supplemental -Initial ABG done on 100% FiO2: 7.49/35/56/26 -Repeat ABG done on RA 7.49/30 8/24.8 -Monitor saturations -Continue supplemental oxygen, wean as tolerated Ruled out Pulmonary Embolism -D-dimer elevated 630.53 -VQ scan shows intermediate probability for PE -Initiated heparin protocol but stopped, venous leg doppler negative d/w Dr. Mitchell -Stopped heparin drip -Pulmonary consulted, input noted Acute kidney injury, vasomotor nephropathy -Cr on admission 4.2 -??CKD with GFR 18 -Gentle hydration with IVF -Avoid nephrotoxic agents -Renal dose all meds -Nephrology consulted Hypokalemia and hypomagnesemia -replete Magnesium via IV, recheck in am -Potassium on admission 2.8 -Received potassium replacement -Continue to monitor and replete prn Obesity -BMI 38.7kg -Diet and lifestyle modifications -May benefit from OP weight mgmt program DVT PPX -sq heparin -SCD's Disposition: continue inpatient care, still on 3 liters of O2, try to wean. consulted Case management to arrange home o2 History Interval history: Patient was seen and examined. Follow-up on current diagnosis Right sided PNA. Overnight uneventful. Patient denies any chest pain, nausea/vomiting or severe headaches. Imaging, nursing note, chart, labs and old chart reviewed. Discussed with patient. Sister Reta at bedside. Hospitalist Physical - Physical exam Narrative exam: Gen: ill appearing, NAD, Awake, Alert, Orientated HEENT: NCAT, EOMI, PERRL, OP Clear Neck: supple, no adenopathy, no thyromegaly, no JVD CVS/Heart: regular tachycardia, normal S1S2, pulses present bilaterally Chest/Lungs: tachypneic, coarse bs right base, diminished bs bilateral, Symmetrical chest expansion, good air entry bilaterally GI/Abdomen: soft, NTND, good bowel sounds, no guarding or rebound /Bladder: no suprapubic tenderness, no CVA or paraspinal tenderness Extermity/Skin: no c/c/e, no obvious rash MSK: FROM x 4 Neuro: CN 2-12 grossly intact, no new focal deficits Psych: calm - Constitutional Vitals: Temp Pulse Resp BP Pulse Ox 100.2 F H 89 18 181/99 93 07/21/19 16:54 07/21/19 16:54 07/21/19 16:54 07/21/19 16:54 07/21/19 16:54 General appearance: Present: no acute distress, well-nourished Results - Labs CBC & Chem 7: 07/21/19 10:39 07/21/19 10:39 Labs: Laboratory Last Values WBC 19.0 K/mm3 (4.5-11.0) H 07/21/19 10:39 RBC 4.26 M/mm3 (3.65-5.03) 07/21/19 10:39 Hgb 10.9 gm/dl (11.8-15.2) L 07/21/19 10:39 Hct 33.9 % (35.5-45.6) L 07/21/19 10:39 MCV 80 fl (84-94) L 07/21/19 10:39 MCH 26 pg (28-32) L 07/21/19 10:39 MCHC 32 % (32-34) 07/21/19 10:39 RDW 15.4 % (13.2-15.2) H 07/21/19 10:39 Plt Count 237 K/mm3 (140-440) 07/21/19 10:39 Add Manual Diff Complete 07/17/19 03:00 Total Counted 100 07/17/19 03:00 Seg Neutrophils % District Branch Manager 07/17/19 03:00 Seg Neuts % (Manual) 93.0 % (40.0-70.0) H 07/17/19 03:00 Band Neutrophils % 0 % 07/17/19 03:00 Lymphocytes % (Manual) 3.0 % (13.4-35.0) L 07/17/19 03:00 Reactive Lymphs % (Man) 0 % 07/17/19 03:00 Monocytes % (Manual) 4.0 % (0.0-7.3) 07/17/19 03:00 Eosinophils % (Manual) 0 % (0.0-4.3) 07/17/19 03:00 Basophils % (Manual) 0 % (0.0-1.8) 07/17/19 03:00 Metamyelocytes % 0 % 07/17/19 03:00 Myelocytes % 0 % 07/17/19 03:00 Promyelocytes % 0 % 07/17/19 03:00 Blast Cells % 0 % 07/17/19 03:00 Nucleated RBC % Not Reportable 07/17/19 03:00 Seg Neutrophils # Man 18.2 K/mm3 (1.8-7.7) H 07/17/19 03:00 Band Neutrophils # 0.0 K/mm3 07/17/19 03:00 Lymphocytes # (Manual) 0.6 K/mm3 (1.2-5.4) L 07/17/19 03:00 Abs React Lymphs (Man) 0.0 K/mm3 07/17/19 03:00 Monocytes # (Manual) 0.8 K/mm3 (0.0-0.8) 07/17/19 03:00 Eosinophils # (Manual) 0.0 K/mm3 (0.0-0.4) 07/17/19 03:00 Basophils # (Manual) 0.0 K/mm3 (0.0-0.1) 07/17/19 03:00 Metamyelocytes # 0.0 K/mm3 07/17/19 03:00 Myelocytes # 0.0 K/mm3 07/17/19 03:00 Promyelocytes # 0.0 K/mm3 07/17/19 03:00 Blast Cells # 0.0 K/mm3 07/17/19 03:00 WBC Morphology Not Reportable 07/17/19 03:00 Hypersegmented Neuts Not Reportable 07/17/19 03:00 Hyposegmented Neuts Not Reportable 07/17/19 03:00 Hypogranular Neuts Not Reportable 07/17/19 03:00 Smudge Cells Not Reportable 07/17/19 03:00 Toxic Granulation Not Reportable 07/17/19 03:00 Toxic Vacuolation Not Reportable 07/17/19 03:00 Dohle Bodies Not Reportable 07/17/19 03:00 Pelger-Huet Anomaly Not Reportable 07/17/19 03:00 Tha Rods Not Reportable 07/17/19 03:00 Platelet Estimate Consistent w auto 07/17/19 03:00 Clumped Platelets Not Reportable 07/17/19 03:00 Plt Clumps, EDTA Not Reportable 07/17/19 03:00 Large Platelets Not Reportable 07/17/19 03:00 Giant Platelets Not Reportable 07/17/19 03:00 Platelet Satelliting Not Reportable 07/17/19 03:00 Plt Morphology Comment Not Reportable 07/17/19 03:00 RBC Morphology Not Reportable 07/17/19 03:00 Dimorphic RBCs Not Reportable 07/17/19 03:00 Polychromasia Not Reportable 07/17/19 03:00 Hypochromasia 1+ 07/17/19 03:00 Poikilocytosis Not Reportable 07/17/19 03:00 Anisocytosis 1+ 07/17/19 03:00 Microcytosis Not Reportable 07/17/19 03:00 Macrocytosis Not Reportable 07/17/19 03:00 Spherocytes Not Reportable 07/17/19 03:00 Pappenheimer Bodies Not Reportable 07/17/19 03:00 Sickle Cells Not Reportable 07/17/19 03:00 Target Cells Not Reportable 07/17/19 03:00 Tear Drop Cells Not Reportable 07/17/19 03:00 Ovalocytes Not Reportable 07/17/19 03:00 Helmet Cells Not Reportable 07/17/19 03:00 Hernandez-Kinder Bodies Not Reportable 07/17/19 03:00 [place] Rings Not Reportable 07/17/19 03:00 Hector Cells Not Reportable 07/17/19 03:00 Bite Cells Not Reportable 07/17/19 03:00 Crenated Cell Not Reportable 07/17/19 03:00 Elliptocytes Not Reportable 07/17/19 03:00 Acanthocytes (Spur) Not Reportable 07/17/19 03:00 Rouleaux Not Reportable 07/17/19 03:00 Hemoglobin C Crystals Not Reportable 07/17/19 03:00 Schistocytes Not Reportable 07/17/19 03:00 Malaria parasites Not Reportable 07/17/19 03:00 James Bodies Not Reportable 07/17/19 03:00 Hem Pathologist Commnt No 07/17/19 03:00 PT 19.9 Sec. (12.2-14.9) H 07/16/19 18:05 INR 1.66 (0.87-1.13) H 07/16/19 18:05 D-Dimer 630.53 ng/mlDDU (0-234) H 07/16/19 18:05 Heparin Anti-Xa Level 0.14 U.I./ml (0.3-0.7) L 07/17/19 05:15 POC ABG pH 7.476 (7.35-7.45) H 07/19/19 14:51 POC ABG pCO2 39.6 (35-45) 07/19/19 14:51 POC ABG pO2 55 (80-105) L 07/19/19 14:51 POC ABG HCO3 29.3 (22-26 mml/L) 07/19/19 14:51 POC ABG Total CO2 30 (23-27mmol/L) 07/19/19 14:51 POC ABG O2 Sat 90 07/19/19 14:51 POC ABG Base Excess 6 ((-2) - (+3)mmol/L) 07/19/19 14:51 FiO2 21 % 07/19/19 14:51 Sodium 141 mmol/L (137-145) 07/21/19 10:39 Potassium 3.0 mmol/L (3.6-5.0) L D 07/21/19 10:39 Chloride 97.9 mmol/L (98-107) L 07/21/19 10:39 Carbon Dioxide 28 mmol/L (22-30) 07/21/19 10:39 Anion Gap 18 mmol/L 07/21/19 10:39 BUN 17 mg/dL (9-20) 07/21/19 10:39 Creatinine 0.9 mg/dL (0.8-1.5) 07/21/19 10:39 Estimated GFR > 60 ml/min 07/21/19 10:39 BUN/Creatinine Ratio 19 % 07/21/19 10:39 Glucose 125 mg/dL (75-100) H 07/21/19 10:39 Lactic Acid 3.10 mmol/L (0.7-2.0) H* 07/17/19 07:27 Calcium 8.4 mg/dL (8.4-10.2) 07/21/19 10:39 Phosphorus 5.30 mg/dL (2.5-4.5) H 07/17/19 03:00 Magnesium 2.20 mg/dL (1.7-2.3) 07/19/19 09:16 Total Bilirubin 1.80 mg/dL (0.1-1.2) H 07/16/19 17:55 Direct Bilirubin 0.9 mg/dL (0-0.2) H 07/16/19 17:55 Indirect Bilirubin 0.9 mg/dL 07/16/19 17:55 AST 59 units/L (5-40) H 07/16/19 17:55 ALT 26 units/L (7-56) 07/16/19 17:55 Alkaline Phosphatase 68 units/L (35-129) 07/16/19 17:55 Total Creatine Kinase 483 units/L (55-170) H 07/19/19 09:16 CK-MB (CK-2) 6.5 ng/mL (0.0-4.0) H 07/17/19 03:00 CK-MB (CK-2) Rel Index 0.3 (0-4) 07/17/19 03:00 Troponin T 0.027 ng/mL (0.00-0.029) 07/17/19 03:00 NT-Pro-B Natriuret Pep 03656 pg/mL (0-450) H 07/16/19 17:55 Total Protein 7.9 g/dL (6.3-8.2) 07/16/19 17:55 Albumin 3.3 g/dL (3.9-5) L 07/16/19 17:55 Albumin/Globulin Ratio 0.7 % 07/16/19 17:55 Triglycerides 121 mg/dL (2-149) 07/16/19 17:55 Cholesterol 132 mg/dL (50-199) 07/16/19 17:55 LDL Cholesterol Direct 66 mg/dL (50-130) 07/16/19 17:55 HDL Cholesterol 39 mg/dL (40-59) L 07/16/19 17:55 Cholesterol/HDL Ratio 3.38 % 07/16/19 17:55 Procalcitonin 116.75 ng/mL (<0.15) 07/17/19 19:24 PTH Intact 85.36 pg/mL (15-65) H 07/17/19 03:00 Urine Color Ame (Yellow) 07/16/19 21:50 Urine Turbidity Cloudy (Clear) 07/16/19 21:50 Urine pH 5.0 (5.0-7.0) 07/16/19 21:50 Ur Specific [place] 1.017 (1.003-1.030) 07/16/19 21:50 Urine Protein 30 mg/dl mg/dL (Negative) 07/16/19 21:50 Urine Glucose (UA) Neg mg/dL (Negative) 07/16/19 21:50 Urine Ketones Neg mg/dL (Negative) 07/16/19 21:50 Urine Blood Lg (Negative) 07/16/19 21:50 Urine Nitrite Neg (Negative) 07/16/19 21:50 Urine Bilirubin Neg (Negative) 07/16/19 21:50 Urine Urobilinogen < 2.0 mg/dL (<2.0) 07/16/19 21:50 Ur Leukocyte Esterase Neg (Negative) 07/16/19 21:50 Urine WBC (Auto) 8.0 /HPF (0.0-6.0) H 07/16/19 21:50 Urine RBC (Auto) 3.0 /HPF (0.0-6.0) 07/16/19 21:50 Urine Mucus Few /HPF 07/16/19 21:50 Urine Eosinophils None seen (None Seen) 07/16/19 21:50 Urine Creatinine 327.2 mg/dL (0.1-20.0) H 07/16/19 21:50 Urine Sodium 28 mmol/L 07/16/19 21:50 Active Medications - Current Medications Current Medications: Generic Name Dose Route Start Last Admin Trade Name Freq PRN Reason Stop Dose Admin Acetaminophen 650 mg 07/16/19 23:07 Tylenol PO Q4H PRN Pain MILD(1-3)/Fever >100.5/DE LA O Albuterol 2.5 mg 07/16/19 23:07 Proventil IH Q3HRT PRN Shortness Of Breath Amlodipine Besylate 10 mg 07/17/19 10:00 07/21/19 09:48 Amlodipine PO 10 mg DAILY VERN Administration Docusate Sodium 100 mg 07/17/19 10:00 07/21/19 09:42 Colace PO 100 mg BID VERN Administration Famotidine 20 mg 07/17/19 16:00 07/21/19 09:42 Pepcid PO 20 mg BID VERN Administration Heparin Sodium (Porcine) 5,000 unit 07/17/19 22:00 07/21/19 09:42 Heparin SUB-Q 5,000 unit Q12HR VERN Administration Ceftriaxone Sodium 2 gm in 100 mls @ 200 mls/hr 07/17/19 10:00 07/21/19 09:42 Rocephin/Ns 2 Gm/100 Ml IV 200 mls/hr Q24HR VERN Administration Protocol Ondansetron HCl 4 mg 07/16/19 23:07 Zofran IV Q6H PRN Nausea And Vomiting Sodium Chloride 10 ml 07/17/19 10:00 07/21/19 09:49 Sodium Chloride Flush Syringe 10 Ml IV 10 ml BID VERN Administration Sodium Chloride 10 ml 07/16/19 23:07 Sodium Chloride Flush Syringe 10 Ml IV PRN PRN LINE FLUSH
[2019-07-22] MEDS: cefTRIAXone/NS 2 GM/100 ML 2 GM/100 ML BAG IV SCH (09:04)
[2019-07-22] MEDS: amLODIPine 10 MG TAB PO SCH (09:05)
[2019-07-22] MEDS: FAMOTIDINE 20 MG TAB PO SCH (09:05)
[2019-07-22] MEDS: DOCUSATE SODIUM 100 MG CAP PO SCH (09:06)
[2019-07-22] MEDS: HEPARIN 5,000 UNIT/1 ML VIAL SUB-Q SCH (09:06)
--- NOTE | 2019-07-22 12:11 | Progress Note ---
Assessment and Plan Patient is 48-year-old -[place] man with a history of hypertension who presents to [facility] ED via EMS with severe SOB and cough. He was placed on Bipap because pO2 was only 56 on 1005 oxygen and admitted to IMCU. * pCXR Impressions: 1. Extensive opacity of right lung * CT Chest without contrast: Impression: 1. Extensive right-sided pneumonia * V/Q Scan Impression: The exam is criteria for intermediate probability for pulmonary embolism due to the large ventilation perfusion defect with associated chest x-ray abnormality. No discrete suspicious perfusion abnormality is seen. * Renal US Impression no acute sonographic abnormality of the kidneys. Sepsis -Clinically improving. No further fever noted. Secondary to pneumonia -treated with IVF and IV abx -VTE prophylaxis Pneumonia right sided suspected Aspiration -CXR and CT Chest shows Extensive opacity of right lung -Complete antibiotics, will need follow up imaging to document resolution Acute hypoxic respiratory failure Continue to wean oxygen -Continue supplemental oxygen, wean as tolerated Ruled out Pulmonary Embolism -D-dimer elevated 630.53 -VQ scan shows intermediate probability for PE -Initially was treated with heparin protocol but this was subsequently di scontinued. Acute kidney injury, vasomotor nephropathy now resolved -Cr on admission 4.2 -??CKD with GFR 18 -Gentle hydration with IVF -Avoid nephrotoxic agents -Renal dose all meds -Nephrology consulted Hypokalemia and hypomagnesemia -Continue to monitor and replete prn Obesity -BMI 38.7kg -Diet and lifestyle modifications -Evaluate for sleep apnea as outpatient Discharge planning Subjective Date of service: 07/22/19 Principal diagnosis: sepsis, aspiration pneumonia, acute hypoxemic respiratory failure Interval history: Patient is seen today for: Sepsis; aspiration pneumonia; morbid obesity Seen and examined at bedside; 24hour events reviewed; nursing and respiratory care staff consulted; no adverse overnight events reported to me; Doing much better, shortness of breath improving. No fevers or chills. No diarrhea, no vomiting Objective Vital Signs - 12hr 07/22/19 04:42 Temperature 98.7 F Pulse Rate 84 Respiratory 18 Rate Blood Pressure 157/86 O2 Sat by Pulse 94 Oximetry Constitutional: no acute distress, alert, other (obese) Eyes: non-icteric ENT: oropharynx moist Neck: supple Effort: normal Ascultation: Bilateral: diminished breath sounds (bases), rales, rhonchi Cardiovascular: regular rate and rhythm, other (S1,S2) Gastrointestinal: normoactive bowel sounds, soft Integumentary: normal Extremities: no cyanosis, no edema Neurologic: normal mental status, non-focal exam, pupils equal and round, motor strength normal and Psychiatric: mood appropriate, affect normal CBC and BMP: 07/21/19 10:39 07/21/19 10:39 ABG, PT/INR, D-dimer: ABG POC ABG pH 7.476 (7.35-7.45) H 07/19/19 14:51 POC ABG pCO2 39.6 (35-45) 07/19/19 14:51 POC ABG pO2 55 (80-105) L 07/19/19 14:51 POC ABG HCO3 29.3 (22-26 mml/L) 07/19/19 14:51 POC ABG Total CO2 30 (23-27mmol/L) 07/19/19 14:51 POC ABG O2 Sat 90 07/19/19 14:51 PT/INR, D-dimer PT 19.9 Sec. (12.2-14.9) H 07/16/19 18:05 INR 1.66 (0.87-1.13) H 07/16/19 18:05 D-Dimer 630.53 ng/mlDDU (0-234) H 07/16/19 18:05 Abnormal lab findings: Abnormal Labs 07/16/19 07/16/19 07/16/19 17:55 18:00 18:05 WBC 17.2 H 17.5 H Hgb Hct MCV 79 L 79 L MCH 27 L 26 L RDW 15.4 H 15.4 H Seg Neuts % (Manual) Lymphocytes % (Manual) 9.0 L Seg Neutrophils # Man 12.0 H Lymphocytes # (Manual) PT INR D-Dimer Heparin Anti-Xa Level POC ABG pH POC ABG pCO2 POC ABG pO2 Potassium Chloride Carbon Dioxide BUN Creatinine Glucose Lactic Acid Calcium Phosphorus Magnesium Total Bilirubin 1.80 H Direct Bilirubin 0.9 H AST 59 H Total Creatine Kinase CK-MB (CK-2) Troponin T 0.039 H NT-Pro-B Natriuret Pep 99037 H Albumin 3.3 L HDL Cholesterol 39 L PTH Intact Urine WBC (Auto) Urine Creatinine 07/16/19 07/16/19 07/16/19 18:05 18:05 18:53 WBC Hgb Hct MCV MCH RDW Seg Neuts % (Manual) Lymphocytes % (Manual) Seg Neutrophils # Man Lymphocytes # (Manual) PT 19.9 H INR 1.66 H D-Dimer 630.53 H Heparin Anti-Xa Level POC ABG pH 7.492 H POC ABG pCO2 POC ABG pO2 56 L Potassium 2.8 L* Chloride 88.8 L Carbon Dioxide BUN 44 H Creatinine 4.2 H Glucose 165 H Lactic Acid Calcium 8.0 L Phosphorus Magnesium Total Bilirubin Direct Bilirubin AST Total Creatine Kinase CK-MB (CK-2) Troponin T NT-Pro-B Natriuret Pep Albumin HDL Cholesterol PTH Intact Urine WBC (Auto) Urine Creatinine 07/16/19 07/16/19 07/16/19 21:50 21:50 21:52 WBC Hgb Hct MCV MCH RDW Seg Neuts % (Manual) Lymphocytes % (Manual) Seg Neutrophils # Man Lymphocytes # (Manual) PT INR D-Dimer Heparin Anti-Xa Level POC ABG pH POC ABG pCO2 POC ABG pO2 Potassium Chloride Carbon Dioxide BUN Creatinine Glucose Lactic Acid 6.40 H* Calcium Phosphorus Magnesium Total Bilirubin Direct Bilirubin AST Total Creatine Kinase CK-MB (CK-2) Troponin T NT-Pro-B Natriuret Pep Albumin HDL Cholesterol PTH Intact Urine WBC (Auto) 8.0 H Urine Creatinine 327.2 H 07/16/19 07/17/19 07/17/19 23:25 02:53 03:00 WBC Hgb Hct MCV MCH RDW Seg Neuts % (Manual) Lymphocytes % (Manual) Seg Neutrophils # Man Lymphocytes # (Manual) PT INR D-Dimer Heparin Anti-Xa Level POC ABG pH 7.498 H POC ABG pCO2 31.9 L POC ABG pO2 < 50 L Potassium Chloride Carbon Dioxide BUN Creatinine Glucose Lactic Acid 4.00 H* Calcium Phosphorus Magnesium Total Bilirubin Direct Bilirubin AST Total Creatine Kinase 1776 H CK-MB (CK-2) 6.5 H Troponin T NT-Pro-B Natriuret Pep Albumin HDL Cholesterol PTH Intact Urine WBC (Auto) Urine Creatinine 07/17/19 07/17/19 07/17/19 03:00 03:00 03:00 WBC 19.6 H Hgb Hct MCV 79 L MCH 26 L RDW 15.3 H Seg Neuts % (Manual) 93.0 H Lymphocytes % (Manual) 3.0 L Seg Neutrophils # Man 18.2 H Lymphocytes # (Manual) 0.6 L PT INR D-Dimer Heparin Anti-Xa Level POC ABG pH POC ABG pCO2 POC ABG pO2 Potassium 2.9 L* Chloride 93.8 L Carbon Dioxide BUN 54 H Creatinine 3.8 H Glucose 144 H Lactic Acid Calcium 7.2 L Phosphorus 5.30 H Magnesium Total Bilirubin Direct Bilirubin AST Total Creatine Kinase CK-MB (CK-2) Troponin T NT-Pro-B Natriuret Pep Albumin HDL Cholesterol PTH Intact 85.36 H Urine WBC (Auto) Urine Creatinine 07/17/19 07/17/19 07/17/19 05:15 05:15 07:27 WBC Hgb Hct MCV MCH RDW Seg Neuts % (Manual) Lymphocytes % (Manual) Seg Neutrophils # Man Lymphocytes # (Manual) PT INR D-Dimer Heparin Anti-Xa Level 0.14 L POC ABG pH POC ABG pCO2 POC ABG pO2 Potassium Chloride Carbon Dioxide BUN Creatinine Glucose Lactic Acid 3.50 H* 3.10 H* Calcium Phosphorus Magnesium Total Bilirubin Direct Bilirubin AST Total Creatine Kinase CK-MB (CK-2) Troponin T NT-Pro-B Natriuret Pep Albumin HDL Cholesterol PTH Intact Urine WBC (Auto) Urine Creatinine 07/17/19 07/18/19 07/19/19 15:08 05:01 09:16 WBC 21.7 H Hgb Hct MCV 80 L MCH 26 L RDW 15.9 H Seg Neuts % (Manual) Lymphocytes % (Manual) Seg Neutrophils # Man Lymphocytes # (Manual) PT INR D-Dimer Heparin Anti-Xa Level POC ABG pH POC ABG pCO2 POC ABG pO2 Potassium 2.9 L* 3.2 L Chloride Carbon Dioxide 21 L BUN 64 H Creatinine 2.0 H Glucose 188 H Lactic Acid Calcium 7.3 L Phosphorus Magnesium 1.60 L Total Bilirubin Direct Bilirubin AST Total Creatine Kinase 1098 H CK-MB (CK-2) Troponin T NT-Pro-B Natriuret Pep Albumin HDL Cholesterol PTH Intact Urine WBC (Auto) Urine Creatinine 07/19/19 07/19/19 07/19/19 09:16 09:16 14:51 WBC Hgb Hct MCV MCH RDW Seg Neuts % (Manual) Lymphocytes % (Manual) Seg Neutrophils # Man Lymphocytes # (Manual) PT INR D-Dimer Heparin Anti-Xa Level POC ABG pH 7.476 H POC ABG pCO2 POC ABG pO2 55 L Potassium 3.0 L Chloride Carbon Dioxide BUN 40 H Creatinine Glucose 154 H Lactic Acid Calcium 7.9 L Phosphorus Magnesium Total Bilirubin Direct Bilirubin AST Total Creatine Kinase 483 H CK-MB (CK-2) Troponin T NT-Pro-B Natriuret Pep Albumin HDL Cholesterol PTH Intact Urine WBC (Auto) Urine Creatinine 07/20/19 07/21/19 07/21/19 07:51 10:39 10:39 WBC 19.0 H Hgb 10.9 L Hct 33.9 L MCV 80 L MCH 26 L RDW 15.4 H Seg Neuts % (Manual) Lymphocytes % (Manual) Seg Neutrophils # Man Lymphocytes # (Manual) PT INR D-Dimer Heparin Anti-Xa Level POC ABG pH POC ABG pCO2 POC ABG pO2 Potassium 3.0 L D Chloride 97.9 L Carbon Dioxide BUN 24 H Creatinine Glucose 126 H 125 H Lactic Acid Calcium 8.3 L Phosphorus Magnesium Total Bilirubin Direct Bilirubin AST Total Creatine Kinase CK-MB (CK-2) Troponin T NT-Pro-B Natriuret Pep Albumin HDL Cholesterol PTH Intact Urine WBC (Auto) Urine Creatinine
[2019-07-22 13:16] VITALS: BP 147/77
--- NOTE | 2019-07-22 14:07 | Progress Note ---
Assessment and Plan Assessment and plan: Patient is 48-year-old -[place] man with a history of hypertension who presents to [facility] ED via EMS with severe SOB and cough. He was placed on Bipap because pO2 was only 56 on 1005 oxygen and admitted to IMCU. * pCXR Impressions: 1. Extensive opacity of right lung * CT Chest without contrast: Impression: 1. Extensive right-sided pneumonia * V/Q Scan Impression: The exam is criteria for intermediate probability for pulmonary embolism due to the large ventilation perfusion defect with associated chest x-ray abnormality. No discrete suspicious perfusion abnormality is seen. * Renal US Impression no acute sonographic abnormality of the kidneys. Sepsis -Secondary to pneumonia -Leukocytosis 17.5, went up due to iv steroids, will stop steroids -Tachycardia 120's-130's -T-max 100.1 -Lactic acid 6.40 -treated with IVF and IV abx Pneumonia right sided suspected Aspiration (the report doesn't mention specific location in the right lung and there is no camera icon in [employer] EMR to actually see the film) -CXR and CT Chest shows Extensive opacity of right lung -Cultures pending -Start on IV Abx Acute hypoxic respiratory failure -No Baseline home oxygen requirements -Currently on supplemental -Initial ABG done on 100% FiO2: 7.49/35/56/26 -Repeat ABG done on RA 7.49/30 8/24.8 -Monitor saturations -Continue supplemental oxygen, wean as tolerated Ruled out Pulmonary Embolism -D-dimer elevated 630.53 -VQ scan shows intermediate probability for PE -Initiated heparin protocol but stopped, venous leg doppler negative d/w Dr. Mitchell -Stopped heparin drip -Pulmonary consulted, input noted Acute kidney injury, vasomotor nephropathy -Cr on admission 4.2 -??CKD with GFR 18 -Gentle hydration with IVF -Avoid nephrotoxic agents -Renal dose all meds -Nephrology consulted Hypokalemia and hypomagnesemia -replete Magnesium via IV, recheck in am -Potassium on admission 2.8 -Received potassium replacement -Continue to monitor and replete prn Obesity -BMI 38.7kg -Diet and lifestyle modifications -May benefit from OP weight mgmt program DVT PPX -sq heparin -SCD's Disposition: continue inpatient care, he was 86% on room air at rest, 90% on 2 liters. home once o2 arrives. History Interval history: Patient was seen and examined. Follow-up on current diagnosis Right sided PNA. Overnight uneventful. Patient denies any chest pain, nausea/vomiting or severe headaches. Imaging, nursing note, chart, labs and old chart reviewed. Discussed with patient. Sister Reta at bedside. Hospitalist Physical - Physical exam Narrative exam: Gen: ill appearing, NAD, Awake, Alert, Orientated HEENT: NCAT, EOMI, PERRL, OP Clear Neck: supple, no adenopathy, no thyromegaly, no JVD CVS/Heart: regular tachycardia, normal S1S2, pulses present bilaterally Chest/Lungs: tachypneic, coarse bs right base, diminished bs bilateral, Symmetrical chest expansion, good air entry bilaterally GI/Abdomen: soft, NTND, good bowel sounds, no guarding or rebound /Bladder: no suprapubic tenderness, no CVA or paraspinal tenderness Extermity/Skin: no c/c/e, no obvious rash MSK: FROM x 4 Neuro: CN 2-12 grossly intact, no new focal deficits Psych: calm - Constitutional Vitals: Temp Pulse Resp BP Pulse Ox 99.4 F 88 18 147/77 94 07/22/19 12:12 07/22/19 12:12 07/22/19 12:12 07/22/19 12:12 07/22/19 12:12 General appearance: Present: no acute distress, well-nourished Results - Labs CBC & Chem 7: 07/21/19 10:39 07/21/19 10:39 Labs: Laboratory Last Values WBC 19.0 K/mm3 (4.5-11.0) H 07/21/19 10:39 RBC 4.26 M/mm3 (3.65-5.03) 07/21/19 10:39 Hgb 10.9 gm/dl (11.8-15.2) L 07/21/19 10:39 Hct 33.9 % (35.5-45.6) L 07/21/19 10:39 MCV 80 fl (84-94) L 07/21/19 10:39 MCH 26 pg (28-32) L 07/21/19 10:39 MCHC 32 % (32-34) 07/21/19 10:39 RDW 15.4 % (13.2-15.2) H 07/21/19 10:39 Plt Count 237 K/mm3 (140-440) 07/21/19 10:39 Add Manual Diff Complete 07/17/19 03:00 Total Counted 100 07/17/19 03:00 Seg Neutrophils % Sack Keeper 07/17/19 03:00 Seg Neuts % (Manual) 93.0 % (40.0-70.0) H 07/17/19 03:00 Band Neutrophils % 0 % 07/17/19 03:00 Lymphocytes % (Manual) 3.0 % (13.4-35.0) L 07/17/19 03:00 Reactive Lymphs % (Man) 0 % 07/17/19 03:00 Monocytes % (Manual) 4.0 % (0.0-7.3) 07/17/19 03:00 Eosinophils % (Manual) 0 % (0.0-4.3) 07/17/19 03:00 Basophils % (Manual) 0 % (0.0-1.8) 07/17/19 03:00 Metamyelocytes % 0 % 07/17/19 03:00 Myelocytes % 0 % 07/17/19 03:00 Promyelocytes % 0 % 07/17/19 03:00 Blast Cells % 0 % 07/17/19 03:00 Nucleated RBC % Not Reportable 07/17/19 03:00 Seg Neutrophils # Man 18.2 K/mm3 (1.8-7.7) H 07/17/19 03:00 Band Neutrophils # 0.0 K/mm3 07/17/19 03:00 Lymphocytes # (Manual) 0.6 K/mm3 (1.2-5.4) L 07/17/19 03:00 Abs React Lymphs (Man) 0.0 K/mm3 07/17/19 03:00 Monocytes # (Manual) 0.8 K/mm3 (0.0-0.8) 07/17/19 03:00 Eosinophils # (Manual) 0.0 K/mm3 (0.0-0.4) 07/17/19 03:00 Basophils # (Manual) 0.0 K/mm3 (0.0-0.1) 07/17/19 03:00 Metamyelocytes # 0.0 K/mm3 07/17/19 03:00 Myelocytes # 0.0 K/mm3 07/17/19 03:00 Promyelocytes # 0.0 K/mm3 07/17/19 03:00 Blast Cells # 0.0 K/mm3 07/17/19 03:00 WBC Morphology Not Reportable 07/17/19 03:00 Hypersegmented Neuts Not Reportable 07/17/19 03:00 Hyposegmented Neuts Not Reportable 07/17/19 03:00 Hypogranular Neuts Not Reportable 07/17/19 03:00 Smudge Cells Not Reportable 07/17/19 03:00 Toxic Granulation Not Reportable 07/17/19 03:00 Toxic Vacuolation Not Reportable 07/17/19 03:00 Dohle Bodies Not Reportable 07/17/19 03:00 Pelger-Huet Anomaly Not Reportable 07/17/19 03:00 Tha Rods Not Reportable 07/17/19 03:00 Platelet Estimate Consistent w auto 07/17/19 03:00 Clumped Platelets Not Reportable 07/17/19 03:00 Plt Clumps, EDTA Not Reportable 07/17/19 03:00 Large Platelets Not Reportable 07/17/19 03:00 Giant Platelets Not Reportable 07/17/19 03:00 Platelet Satelliting Not Reportable 07/17/19 03:00 Plt Morphology Comment Not Reportable 07/17/19 03:00 RBC Morphology Not Reportable 07/17/19 03:00 Dimorphic RBCs Not Reportable 07/17/19 03:00 Polychromasia Not Reportable 07/17/19 03:00 Hypochromasia 1+ 07/17/19 03:00 Poikilocytosis Not Reportable 07/17/19 03:00 Anisocytosis 1+ 07/17/19 03:00 Microcytosis Not Reportable 07/17/19 03:00 Macrocytosis Not Reportable 07/17/19 03:00 Spherocytes Not Reportable 07/17/19 03:00 Pappenheimer Bodies Not Reportable 07/17/19 03:00 Sickle Cells Not Reportable 07/17/19 03:00 Target Cells Not Reportable 07/17/19 03:00 Tear Drop Cells Not Reportable 07/17/19 03:00 Ovalocytes Not Reportable 07/17/19 03:00 Helmet Cells Not Reportable 07/17/19 03:00 [place] Bodies Not Reportable 07/17/19 03:00 Fine Rings Not Reportable 07/17/19 03:00 [place] Cells Not Reportable 07/17/19 03:00 Bite Cells Not Reportable 07/17/19 03:00 Crenated Cell Not Reportable 07/17/19 03:00 Elliptocytes Not Reportable 07/17/19 03:00 Acanthocytes (Spur) Not Reportable 07/17/19 03:00 Rouleaux Not Reportable 07/17/19 03:00 Hemoglobin C Crystals Not Reportable 07/17/19 03:00 Schistocytes Not Reportable 07/17/19 03:00 Malaria parasites Not Reportable 07/17/19 03:00 James Bodies Not Reportable 07/17/19 03:00 Hem Pathologist Commnt No 07/17/19 03:00 PT 19.9 Sec. (12.2-14.9) H 07/16/19 18:05 INR 1.66 (0.87-1.13) H 07/16/19 18:05 D-Dimer 630.53 ng/mlDDU (0-234) H 07/16/19 18:05 Heparin Anti-Xa Level 0.14 U.I./ml (0.3-0.7) L 07/17/19 05:15 POC ABG pH 7.476 (7.35-7.45) H 07/19/19 14:51 POC ABG pCO2 39.6 (35-45) 07/19/19 14:51 POC ABG pO2 55 (80-105) L 07/19/19 14:51 POC ABG HCO3 29.3 (22-26 mml/L) 07/19/19 14:51 POC ABG Total CO2 30 (23-27mmol/L) 07/19/19 14:51 POC ABG O2 Sat 90 07/19/19 14:51 POC ABG Base Excess 6 ((-2) - (+3)mmol/L) 07/19/19 14:51 FiO2 21 % 07/19/19 14:51 Sodium 141 mmol/L (137-145) 07/21/19 10:39 Potassium 3.0 mmol/L (3.6-5.0) L D 07/21/19 10:39 Chloride 97.9 mmol/L (98-107) L 07/21/19 10:39 Carbon Dioxide 28 mmol/L (22-30) 07/21/19 10:39 Anion Gap 18 mmol/L 07/21/19 10:39 BUN 17 mg/dL (9-20) 07/21/19 10:39 Creatinine 0.9 mg/dL (0.8-1.5) 07/21/19 10:39 Estimated GFR > 60 ml/min 07/21/19 10:39 BUN/Creatinine Ratio 19 % 07/21/19 10:39 Glucose 125 mg/dL (75-100) H 07/21/19 10:39 Lactic Acid 3.10 mmol/L (0.7-2.0) H* 07/17/19 07:27 Calcium 8.4 mg/dL (8.4-10.2) 07/21/19 10:39 Phosphorus 5.30 mg/dL (2.5-4.5) H 07/17/19 03:00 Magnesium 2.20 mg/dL (1.7-2.3) 07/19/19 09:16 Total Bilirubin 1.80 mg/dL (0.1-1.2) H 07/16/19 17:55 Direct Bilirubin 0.9 mg/dL (0-0.2) H 07/16/19 17:55 Indirect Bilirubin 0.9 mg/dL 07/16/19 17:55 AST 59 units/L (5-40) H 07/16/19 17:55 ALT 26 units/L (7-56) 07/16/19 17:55 Alkaline Phosphatase 68 units/L (35-129) 07/16/19 17:55 Total Creatine Kinase 483 units/L (55-170) H 07/19/19 09:16 CK-MB (CK-2) 6.5 ng/mL (0.0-4.0) H 07/17/19 03:00 CK-MB (CK-2) Rel Index 0.3 (0-4) 07/17/19 03:00 Troponin T 0.027 ng/mL (0.00-0.029) 07/17/19 03:00 NT-Pro-B Natriuret Pep 72654 pg/mL (0-450) H 07/16/19 17:55 Total Protein 7.9 g/dL (6.3-8.2) 07/16/19 17:55 Albumin 3.3 g/dL (3.9-5) L 07/16/19 17:55 Albumin/Globulin Ratio 0.7 % 07/16/19 17:55 Triglycerides 121 mg/dL (2-149) 07/16/19 17:55 Cholesterol 132 mg/dL (50-199) 07/16/19 17:55 LDL Cholesterol Direct 66 mg/dL (50-130) 07/16/19 17:55 HDL Cholesterol 39 mg/dL (40-59) L 07/16/19 17:55 Cholesterol/HDL Ratio 3.38 % 07/16/19 17:55 Procalcitonin 116.75 ng/mL (<0.15) 07/17/19 19:24 PTH Intact 85.36 pg/mL (15-65) H 07/17/19 03:00 Urine Color Ame (Yellow) 07/16/19 21:50 Urine Turbidity Cloudy (Clear) 07/16/19 21:50 Urine pH 5.0 (5.0-7.0) 07/16/19 21:50 Ur Specific [place] 1.017 (1.003-1.030) 07/16/19 21:50 Urine Protein 30 mg/dl mg/dL (Negative) 07/16/19 21:50 Urine Glucose (UA) Neg mg/dL (Negative) 07/16/19 21:50 Urine Ketones Neg mg/dL (Negative) 07/16/19 21:50 Urine Blood Lg (Negative) 07/16/19 21:50 Urine Nitrite Neg (Negative) 07/16/19 21:50 Urine Bilirubin Neg (Negative) 07/16/19 21:50 Urine Urobilinogen < 2.0 mg/dL (<2.0) 07/16/19 21:50 Ur Leukocyte Esterase Neg (Negative) 07/16/19 21:50 Urine WBC (Auto) 8.0 /HPF (0.0-6.0) H 07/16/19 21:50 Urine RBC (Auto) 3.0 /HPF (0.0-6.0) 07/16/19 21:50 Urine Mucus Few /HPF 07/16/19 21:50 Urine Eosinophils None seen (None Seen) 07/16/19 21:50 Urine Creatinine 327.2 mg/dL (0.1-20.0) H 07/16/19 21:50 Urine Sodium 28 mmol/L 07/16/19 21:50 Active Medications - Current Medications Current Medications: Generic Name Dose Route Start Last Admin Trade Name Freq PRN Reason Stop Dose Admin Acetaminophen 650 mg 07/16/19 23:07 Tylenol PO Q4H PRN Pain MILD(1-3)/Fever >100.5/DE LA O Albuterol 2.5 mg 07/16/19 23:07 Proventil IH Q3HRT PRN Shortness Of Breath Amlodipine Besylate 10 mg 07/17/19 10:00 07/22/19 09:05 Amlodipine PO 10 mg DAILY VERN Administration Docusate Sodium 100 mg 07/17/19 10:00 07/22/19 09:06 Colace PO Not Given BID VERN Famotidine 20 mg 07/17/19 16:00 07/22/19 09:05 Pepcid PO 20 mg BID VERN Administration Heparin Sodium (Porcine) 5,000 unit 07/17/19 22:00 07/22/19 09:06 Heparin SUB-Q 5,000 unit Q12HR VERN Administration Ceftriaxone Sodium 2 gm in 100 mls @ 200 mls/hr 07/17/19 10:00 07/22/19 09:04 Rocephin/Ns 2 Gm/100 Ml IV 200 mls/hr Q24HR VERN Administration Protocol Ondansetron HCl 4 mg 07/16/19 23:07 Zofran IV Q6H PRN Nausea And Vomiting Sodium Chloride 10 ml 07/17/19 10:00 07/22/19 10:03 Sodium Chloride Flush Syringe 10 Ml IV 10 ml BID VERN Administration Sodium Chloride 10 ml 07/16/19 23:07 Sodium Chloride Flush Syringe 10 Ml IV PRN PRN LINE FLUSH Nutrition/Malnutrition Assess - Dietary Evaluation Nutrition/Malnutrition Findings: Nutrition Notes Start: 07/22/19 13:41 Freq: Status: Active Protocol: Document 07/22/19 13:41 LM (Rec: 07/22/19 13:42 LM [id number]) Nutrition Notes Need for Assessment generated from: LOS Initial or Follow up Brief Note Subjective/Other Information Screen for LOS. 100% intakes documented in chart. Nutrition Intervention Revisit per MD consult or patient Sign Off request:
--- NOTE | 2019-07-22 14:12 | Discharge Summary ---
Providers - Providers Date of Admission: 07/16/19 23:07 Date of discharge: 07/22/19 Attending physician: AGUSTIN LOPEZ 07/16/19 19:22 Consult to Physician [CONS] Routine Comment: Dr. Fabian spoke with Dr. Tom @ [phone] Consulting Provider: CHRISTINE TOM Physician Instructions: Reason For Exam: Acute renal failure 07/16/19 22:44 Consult to Physician [CONS] Routine Comment: Consulting Provider: MONICA SALCIDO Physician Instructions: Reason For Exam: elevated d-dimer, int prob for PE, PNA 07/21/19 17:57 Consult to Case Management [CONS] Routine Services Needed at Discharge: Home O2 Notified:: cm Additional Physician Instructions: Primary care physician: GEODESY TEACHER Hospitalization Condition: Stable Hospital course: Patient is 48-year-old -[place] man with a history of hypertension who presents to [facility] via EMS with severe SOB and cough. He was placed on Bipap because pO2 was only 56 on 1005 oxygen and admitted to IMCU. * pCXR Impressions: 1. Extensive opacity of right lung * CT Chest without contrast: Impression: 1. Extensive right-sided pneumonia * V/Q Scan Impression: The exam is criteria for intermediate probability for pulmonary embolism due to the large ventilation perfusion defect with associated chest x-ray abnormality. No discrete suspicious perfusion abnormality is seen. * Renal US Impression no acute sonographic abnormality of the kidneys. Discharge Diagnoses: Sepsis, poa -Secondary to pneumonia -Leukocytosis 17.5, went up due to iv steroids, will stop steroids -Tachycardia 120's-130's -T-max 100.1 -Lactic acid 6.40 -treated with IVF and IV abx Pneumonia right sided suspected Aspiration (the report doesn't mention specific location in the right lung and there is no camera icon in [employer] EMR to actually see the film) -CXR and CT Chest shows Extensive opacity of right lung -Cultures pending -Start on IV Abx Acute hypoxic respiratory failure -No Baseline home oxygen requirements -Currently on supplemental -Initial ABG done on 100% FiO2: 7.49/35/56/26 -Repeat ABG done on RA 7.49/30 1/40 8/24.8 -Monitor saturations -Continue supplemental oxygen, wean as tolerated Ruled out Pulmonary Embolism -D-dimer elevated 630.53 -VQ scan shows intermediate probability for PE -Initiated heparin protocol but stopped, venous leg doppler negative d/w Dr. Mitchell -Stopped heparin drip -Pulmonary consulted, input noted Acute kidney injury, vasomotor nephropathy -Cr on admission 4.2 -??CKD with GFR 18 -Gentle hydration with IVF -Avoid nephrotoxic agents -Renal dose all meds -Nephrology consulted Hypokalemia and hypomagnesemia -replete Magnesium via IV, recheck in am -Potassium on admission 2.8 -Received potassium replacement -Continue to monitor and replete prn Obesity -BMI 38.7kg -Diet and lifestyle modifications -May benefit from OP weight mgmt program DVT PPX -sq heparin -SCD's Disposition: continue inpatient care, he was 86% on room air at rest, 90% on 2 liters. home once o2 arrives. Disposition: DC- TO HOME OR SELFCARE Time spent for discharge: 34 minutes Core Measure Documentation - Palliative Care Palliative Care/ Comfort Measures: Not Applicable - Core Measures Any of the following diagnoses?: none - VTE Discharge Requirements Deep Vein Thrombosis/Pulmonary Embolism Present on Admission: No Has pt received <5 days of overlap therapy or INR<2.0: No Anticoagulant overlap therapy prescribed at discharge: No Contraindication No Overlap Therapy order at DC: Not Indicated Exam - Physical Exam Narrative exam: Gen: bmi 41.7, NAD, Awake, Alert, Orientated HEENT: NCAT, EOMI, PERRL, OP Clear Neck: supple, no adenopathy, no thyromegaly, no JVD CVS/Heart: RRR, normal S1S2, pulses present bilaterally Chest/Lungs: good bs right base, improved diminished bs bilateral, Symmetrical chest expansion, good air entry bilaterally GI/Abdomen: soft, NTND, good bowel sounds, no guarding or rebound /Bladder: no suprapubic tenderness, no CVA or paraspinal tenderness Extermity/Skin: no c/c/e, no obvious rash MSK: FROM x 4 Neuro: CN 2-12 grossly intact, no new focal deficits Psych: calm - Constitutional Vitals: Temp Pulse Resp BP Pulse Ox 99.4 F 88 18 147/77 94 07/22/19 12:12 07/22/19 12:12 07/22/19 12:12 07/22/19 12:12 07/22/19 12:12 Plan Activity: other (no strenous activity unless cleared by PCP) Diet: low salt Durable Medical Equipment Needed Upon Discharge: Oxygen Follow up with: TAURUS MCINTOSH MD [Staff Physician] - 7 Days OMARI MURRELL MD [Staff Physician] - 10 Days Prescriptions: amLODIPine 10 mg PO DAILY #30 levoFLOXacin [Levaquin] 750 mg PO QDAY #2 tablet ALBUTEROL Inhaler (OR & NICU) [ProAir HFA Inhaler] 2 puff IH QID PRN #8.5 gram PRN Reason: Shortness Of Breath
== END 2019-07-22 20:35 | disposition home or self-care (01) | DRG 871 ==
LOC: ED 17:07 → CC1 23:07 → 3A 07-17 17:26
PROVIDERS: ADMIT Internal Medicine; ATTEND Internal Medicine
PROC: 4A033R1 Measurement of Arterial Saturation, Peripheral, Percutaneous Approach (ICD-10-PCS; principal; 2019-07-16)
PROC: 5A09357 Assistance with Respiratory Ventilation, Less than 24 Consecutive Hours, Continuous Positive Airway Pressure (ICD-10-PCS; 2019-07-16)
PROC: 5A09357 Assistance with Respiratory Ventilation, Less than 24 Consecutive Hours, Continuous Positive Airway Pressure (ICD-10-PCS; 2019-07-17)
DX: A41.9 Sepsis, unspecified organism (principal); J96.01 Acute respiratory failure with hypoxia; J69.0 Pneumonitis due to inhalation of food and vomit; N17.0 Acute kidney failure with tubular necrosis; Z68.41 Body mass index [BMI] 40.0-44.9, adult; M62.82 Rhabdomyolysis; E87.6 Hypokalemia; E83.42 Hypomagnesemia; E66.9 Obesity, unspecified; I10 Essential (primary) hypertension; Z79.899 Other long term (current) drug therapy; Z72.89 Other problems related to lifestyle
CPT/HCPCS: 36415; 36600; 71045; 71250; 76770; 78582; 80048; 80061; 80076; 81001; 82140; 82550; 82553; 82570; 82803; 83735; 83880; 83970; 84100; 84132; 84145; 84300; 84484; 85007; 85025; 85027; 85379; 85520; 85610; 87040; 87086; 89050; 93005; 93010; 93970; 94640; 94644; 94660; 94760; G0378; A9540; A9558; J0456; J0696; J1644; J1956; J2930; J3370; J3475; J3480; J7030; J7040; J7050